=== PATIENT | male | born 1935 | race African-American/Black ===

== ENCOUNTER 2020-01-13 22:10 | Observation (INO) | payer MEDICARE, SELFPAY ==
--- NOTE | ~2020-01-13 | US_ITS ---
EXAMINATION: US carotid duplex BI DATE: 01/14/2020 10:34 INDICATION: Vertigo. TECHNIQUE: Grayscale, color Doppler, and pulsed Doppler images of the cervical carotid arteries were obtained. The degree of vessel stenosis is placed in one of the following categories: normal, <50%, 5 0-69%, >=70% but less than near-occlusion, near-occlusion, or total occlusion. Note that percent sten osis relative to normal distal artery lumen diameter is indirectly measured from velocity measurement s as described by Wisam, et al. Radiology 2003; 229:340-346. Notes: Normal: Peak systolic velocity <125 centimeters/sec and no plaque <50%. Peak systolic velocity <125 ( EDV <40; ICA/CCA PSV ratio <2.0; used these factors only a tandem lesions or low cardiac output or co ntralateral disease) 50-69 %: PSV 125-230 (EDV 40-100; ratio 2-4) >= 70% but less than near occlusion: PSV greater than 230 (EDV > 100; ratio> 4.0) Near Occlusion: PSV that is variable; markedly narrowed lumen Occlusion: Absent flow on color/spectral Doppler and no lumen on roldan scale. COMPARISON: None. FINDINGS: RIGHT: The right common carotid artery (CCA) peak systolic velocity (PSV) is 90 cm/s. The right internal car otid artery (ICA) PSV is 73 cm/s. The right ICA end-diastolic velocity (EDV) is 21 cm/s. The right IC A/CCA PSV ratio is 0.8. The external carotid artery (ECA) PSV is 40 cm/s. There is antegrade flow in the right vertebral artery. LEFT: The left CCA PSV is 113 cm/s. The left ICA PSV is 92 cm/s. The left ICA EDV is 24 cm/s. The left ICA/ CCA PSV ratio is 0.8. The ECA PSV is 82 cm/s. There is antegrade flow in the left vertebral artery. IMPRESSION: 1. Less than 50% stenosis in the right internal carotid artery by sonographic criteria. 2. Less than 50% stenosis in the left internal carotid artery by sonographic criteria. Reviewed, dictated and finalized at location B. IMPRESSION: 1. Less than 50% stenosis in the right internal carotid artery by sonographic mohit moser. 2. Less than 50% stenosis in the left internal carotid artery by sonographic janine nassar.
--- NOTE | ~2020-01-13 | CT_ITS ---
EXAMINATION: CT brain wo con, CT cervical spine wo con EXAM DATE: 01/14/2020 00:19 INDICATION: Fall, syncope, left-sided head injury, left side head and posterior neck pain. TECHNIQUE: Spiral CT of the head was performed without contrast. Axial, coronal and sagittal images were reviewed. Spiral CT of the cervical spine was performed without contrast. Axial images were rev iewed. Coronal and sagittal reformatted images were also reviewed. The dose-length product (DLP) fo r this examination was 605.33 (accession [id number]), 254.83 (accession [id number]) mGy-cm. The exposure was tailored according to patient size, and iterative reconstruction (ASIR) was used as additional dose reduction technique. There is no prior study for comparison. FINDINGS: HEAD CT: There is no acute intraparenchymal hemorrhage. No evidence of intraparenchymal brain mass l esion. No evidence of acute infarction. There is moderate to severe periventricular and subcortical hypodensity, nonspecific but probably related to small vessel ischemic disease. There is mild promi nence of the sulci and ventricles related to cerebral atrophy. There is intracranial carotid arteri osclerosis. There is no mass effect or midline shift. There is no obstructive hydrocephalus suspect ed. There are no extra-axial collections. There are no acute calvarial fractures. The orbits are u nremarkable. Mild left lateral scalp swelling. The visualized sinuses and mastoid air cells are well aerated. CERVICAL CT: There is acute nondisplaced C6 spinous process fracture best identified on the sagittal sequence, see image #66. The odontoid process is intact. Pre-dens space is normal. Prevertebral sof t tissue is normal. There are no soft tissue abnormalities identified. There is no disc space widen ing or traumatic vertebral body subluxation suspected. There is moderate to severe disc disease from C4 through C7. There is overall moderate cervical arthropathy. A detailed level by level evaluation of spondylosis can be added as addendum if requested. IMPRESSION: 1. Acute nondisplaced C6 spinous process fracture, without any subluxation or disc space widening. 2. Age-related intracranial findings. 3. Cervical spondylosis. Reviewed, dictated and finalized at location A. IMPRESSION: 1. Acute nondisplaced C6 spinous process fracture, without any subluxation or disc space widening. 2. Age-related intracranial findings. 3. Cervical spondylosis.
--- NOTE | ~2020-01-13 | XR_ITS ---
EXAMINATION: XR ribs LT 2V w CXR 2V EXAM DATE: 01/14/2020 00:33 INDICATION: Fall, left lower rib pain. TECHNIQUE: Frontal projection of the upper left ribs, frontal projection of the lower left ribs, obli que projection of the left ribs, frontal and lateral chest x-ray(s) for interpretation. Comparison is made to prior examination from 03/04/2018. FINDINGS: There are no displaced acute left rib fractures identified. There is no soft tissue abnor mality seen. No confluent consolidation, pneumothorax or pleural effusion suspected. IMPRESSION: No displaced left rib fractures. Reviewed, dictated and finalized at location A.
[2020-01-13 22:12] VITALS: BP 207/108; PULSE 78; RESP 18; TEMP 37.1; O2SAT 100
--- NOTE | 2020-01-13 22:19 | ECG_ITS ---
Measurements Intervals [place] Rate: 69 P: 52 LA: 180 QRS: -12 QRSD: 100 T: 32 QT: 386 QTc: 414 Interpretive Statements SINUS RHYTHM VENTRICULAR PREMATURE COMPLEX BASELINE WANDER- III, V1-V2 BORDERLINE ECG Electronically Signed On 01-14-2020 7:00:27 CDT by Dmitry Barbosa D.O.
--- NOTE | 2020-01-13 22:26 | PC.NURSE ---
Diana () phone number [phone].
[2020-01-13 22:30] LABS: Basophils Absolute Auto 0.1 K/mm3 (0.0-0.1); Basophils Percent Auto 0.5 % (0.2-1.2); Eosinophils Absolute Auto 0.2 K/mm3 (0-0.3); Eosinophils Percent Auto 1.2 % (0-4.4); Hematocrit 39.4 % (42.0-52.0); Hemoglobin 12.9 g/dL (14.0-18.0); Immature Granulocyte Absolute 0.03 K/mm3 (0.00-0.031); Immature Granulocyte Percent A 0.2 % (0-0.5); Lymphocytes Absolute Auto 3.17 K/mm3 (0.9-3.2); Lymphocytes Percent Auto 26.2 % (18.3-44.2); Mean Corpuscular HGB Conc 32.7 g/dl (32-36); Mean Corpuscular Hemoglobin 29.8 pg (26-34); Monocytes Absolute Auto 1.1 K/mm3 (0.1-0.6); Monocytes Percent Auto 8.8 % (2.6-8.5); Neutrophils Absolute Auto 7.6 K/mm3 (1.3-6.7); Neutrophils Percent Auto 63.1 % (45.5-73.1); Nucleated Red Blood Cells Perc 0.2 % (0.0-0.2); Platelet Count Result 231 k/mm3 (150-375); Red Blood Count 4.33 M/mm3 (4.6-6.20); Red Cell Distribution Width 15.5 % (11.5-14.5); White Blood Count 12.1 K/mm3 (4.5-10.0)
[2020-01-13 22:43] LABS: Anion Gap 7 mmol/L (8-16); Blood Urea Nitrogen 18 mg/dL (9-20); Calcium 9.1 mg/dL (8.4-10.2); Carbon Dioxide 28 mmol/L (22-30); Chloride 102 mmol/L (98-107); Estimated CRCL calculation 43 ml/min; Estimated Glomerular Filt Rate > 60; Glucose 94 mg/dL (75-110); Potassium 3.9 mmol/L (3.4-5.0); Sodium 137 mmol/L (137-145)
--- NOTE | 2020-01-13 23:35 | ED.FALL ---
HPI - Fall General Chief Complaint: Fall Stated Complaint: Syncopy, HI Time Seen by Provider: 01/13/20 23:32 History of Present Illness HPI Narrative: He lost consciousness today while standing in the bathroom. No prodrome. He reports that he remembers looking up then he suddenly blacked out and fell to the ground. He believes that he struck the left side of his head and neck in the fall. He does have mild pain at this time. No weakness, numbness, confusion. Prior to this he was in his usual state of health. Related Data Home Medications Medication Instructions Recorded Confirmed acetaminophen 500 mg tablet 500 mg PO Q6H PRN 01/21/20 Allergies Allergy/AdvReac Type Severity Reaction Status Date / Time No Known Drug Allergies Allergy Unknown Other Verified 01/21/20 15:07 Review of Systems Review of Systems: All systems reviewed & are unremarkable except as noted in HPI and below Constitutional: Constitutional: Denies fever(s) and Denies weakness Eyes: Eyes: Denies change in vision ENT: Denies dizziness Cardiovascular: Cardiovascular: Denies chest pain Respiratory: Respiratory: Denies dyspnea Gastrointestinal: Gastrointestinal: Denies nausea Musculoskeletal: Musculoskeletal: Denies back pain Neurologic: Denies dizziness, Reports syncope and Denies weakness PMFSH Past Medical History Medical History Bowel obstruction HTN (hypertension) Hyperlipidemia SBO (small bowel obstruction) Surgical History Surgical History History of intestinal surgery Social History Social History Smoking packs per day: 1 Smoking cigarettes per day: 20.0 Years smoked: 70 Smoking pack-years: 70.00 Smoking status: Current every day smoker Tobacco type: cigarettes Second hand tobacco smoke exposure: No Alcohol intake: never Substance use: current Substance use type: marijuana Gender identity (if verbalized by the patient): Male Spiritual care concerns: No Agree to blood products: Yes Exam Const: General: healthy appearing, no acute distress and alert Nutritional Appearance: well nourished Orientation/consciousness: patient oriented x3 HENMT: Head: normal to inspection Eyes: Pupils: Equal, round and reactive pupils present EOM: EOMs intact bilaterally Neck: Neck: normal visual inspection and no lymphadenopathy Chest: Chest palpation & inspection: no tenderness Resp: Effort & Inspection: normal respiratory effort Auscultation: clear to auscultation bilaterally, no rales, no rhonchi and no wheezes Cardio: Jugular venous distension: no JVD Rate: regular rate Rhythm: regular rhythm Heart sounds: no murmurs GI: Inspection: non-distended GI Palp: Yes Soft to palpation and No Tenderness to palpation present (GI) Skin: General skin exam: normal color Neuro: General: patient oriented x3, moves all extremities, no focal motor deficits and CN's II-XI intact bilaterally Cranial nerves: Yes Nystagmus not present Speech: normal speech Extrem: General: no edema Psych: Appearance: well kempt Affect: normal affect Course Vital Signs Vital signs: Vital Signs Temperature 37.1 C 01/13/20 22:12 Pulse Rate 78 01/13/20 22:12 Respiratory Rate 18 01/13/20 22:12 Blood Pressure 207/108 H 01/13/20 22:12 Pulse Oximetry 100 01/13/20 22:12 Temperature 37.3 C 01/15/20 13:06 Pulse Rate 66 01/15/20 16:00 Respiratory Rate 16 01/15/20 13:06 Blood Pressure 165/82 H 01/15/20 16:04 Pulse Oximetry 100 01/15/20 13:06 MDM - Fall MDM Narrative Medical decision making narrative: He has a spinous process fracture in the cervical spine. work-up otherwise unremarkable. Syncope especially in older patient's with no prodromal symptoms could be concerning for more serious causes. I will plan to admit for obse
[2020-01-14] VITALS (15 sets, daily range): BP systolic 154–186; BP diastolic 76–98; PULSE 52–78; RESP 16–20; TEMP 36.6–37.1; O2SAT 99–100; BMI 22.8
[2020-01-14] MEDS: SODIUM CHLORIDE 0.9% IV 500 ML 999 ML IV CONT (01:00)
[2020-01-14] MEDS: MORPHINE SULFATE 2 MG/ML INJ IV PUSH (02:41)
--- NOTE | 2020-01-14 02:50 | ADMGEN ---
This patient, Audie Ruiz, was admitted to 2 Medical Room 244-. Patient/family oriented to hospital policies and general routines including ID bracelet, bed and alarms, visiting hours, pain management, procedures, bathroom and other care routines, personal items, smoking policy, room service/diet, and visiting hours. Valuables list has been completed. Information on how to activate the Rapid Response Team has been discussed. Patient/Family are encouraged to report perceived risks to care and to ask questions if they do not understand what they are told or what they should do.
[2020-01-14] MEDS: LACTATED RINGERS 1,000 ML 100 ML IV CONT (03:21)
--- NOTE | 2020-01-14 04:13 | PM.IMHP ---
H&P: HPI History of Present Illness Date/Time: 01/14/20 04:13 Chief complaint: Syncope, Spinous process fracture Narrative: this is a pleasant 84-year-old male with known history of hypertension and hyperlipidemia who [facility] after suffering a syncopal episode at home. The patient had just finished taking a shower and had dried himself off. He remembers that he was going to get some lotion when suddenly he woke up on the ground. He denies any shortness of breath or chest pain before passing out. He denies any previous episodes of passing out. He believes he hit his neck on his toilet when he fell because when he woke up he had neck pain. The patient denies any focal neurological deficit at this time. He also denies any fevers, chills, shortness of breath, cough, nausea, vomiting, diarrhea, abdominal pain, dysuria, hematuria, lower extremity swelling, or rectal bleeding. The patient leads an active lifestyle and tells me that yesterday during the day he cut his grass without any incident. He denies any recent episodes of dizziness. the patient was found to have a nondisplaced spinous process fracture of his cervical vertebra. Currently he is only complaining of posterior neck discomfort. Review of Systems Review of Systems: All systems reviewed & are unremarkable except as noted in HPI and below PMFSH Past Medical History Medical History Bowel obstruction HTN (hypertension) Hyperlipidemia SBO (small bowel obstruction) Surgical History Surgical History History of intestinal surgery Social History Social History Smoking packs per day: 1 Smoking cigarettes per day: 20.0 Years smoked: 70 Smoking pack-years: 70.00 Smoking status: Current every day smoker Tobacco type: cigarettes Second hand tobacco smoke exposure: No Alcohol intake: never Substance use: current Substance use type: marijuana Gender identity (if verbalized by the patient): Male Sexual Orientation (if Verbalized by the Patient): Straight or Heterosexual Spiritual care concerns: No Agree to blood products: Yes Meds Home Medications and Allergies Home Medications Medication Instructions Recorded Confirmed Type metoprolol succinate 25 mg 25 mg PO DAILY #30 tablet 04/10/19 01/14/20 Rx tablet,extended release 24 hr Allergies Allergy/AdvReac Type Severity Reaction Status Date / Time No Known Drug Allergies Allergy Unknown Other Verified 06/12/19 11:05 Vital Signs Vital Signs - 24 hr 01/13/20 22:12 01/14/20 03:03 01/14/20 03:14 Temperature 37.1 C 37.0 C Pulse Rate 78 59 L 74 Respiratory Rate 18 20 Blood Pressure 207/108 H 186/85 H Pulse Oximetry 100 100 Exam Const: General: cooperative, no acute distress, alert and awake Nutritional Appearance: well nourished Orientation/consciousness: patient oriented x3 HENMT: Head: normal to inspection General nose exam: Normal external nose present Face and sinus: normal facial exam Mouth: Yes Normal oral and palatal mucosa present and Yes oropharynx normal Eyes: Pupils: Equal, round and reactive pupils present EOM: EOMs intact bilaterally Neck: Neck: normal visual inspection, supple, tender and no JVD Thyroid: thyroid normal Lymphatic: lymphadenopathy not noted Resp: Effort & Inspection: normal respiratory effort Auscultation: clear to auscultation bilaterally Cardio: Rate: regular rate Rhythm: regular rhythm Heart sounds: no murmurs GI: Inspection: normal to inspection Auscultation: normal bowel sounds Skin: General skin exam: normal color and no rashes or lesions noted Neuro: General: patient oriented x3 Cranial nerves: Yes CN's II-XII intact bilaterally and Yes Equal, round and reactive pupils present Speech: normal speech Mot
--- NOTE | 2020-01-14 04:20 | ECHO_ITS ---
Patient Info Name: Audie Ruiz Age: 84 years : 1935 Gender: Male Ht: 72 in Wt: 167 lbs BSA: 1.96 m2 HR: 61 bpm BP: 186 / 85 mmHg Technical Quality: Good Exam Date: 01/14/2020 8:45 AM Exam Location: [facility] Pulmonary Patient Status: Outpatient Admit Date: 01/14/2020 Staff Ordering Physician: Dada Pichardo MD Metal Furniture Polisher: Salazar Gee RDCS, RT Attending Provider: Lela Magdaleno PA-C Referring Physician: Marino HUNTER; Exam Type: CA echo doppler color flow Study Info Indications R55 - Syncope and collapse Complete two-dimensional, color flow and Doppler transthoracic echocardiogram is performed. Summary 1. Complete two-dimensional, color flow and Doppler transthoracic echocardiogram is performed. 2. Normal LV size, mild LVH, normal LV systolic function, ejection fraction 60-65%; grade 1 diastolic dysfunction. Mild left atrial enlargement. Normal mitral valve structure, no significant MR. Mild aortic valve sclerosis, no hemodynamically significant stenosis by Doppler. Trivial TR, RVSP 37 mmHg. Dilated IVC. Normal sinus rhythm. Left Ventricle Left ventricular chamber dimension is normal. Left ventricular systolic function is normal, estimated at 60-65%. There is mildly increased left ventricular wall thickness. Left ventricular septal wall motion is normal. The left ventricular diastolic function is grade I diastolic dysfunction. Right Ventricle Right ventricular chamber dimension is normal. Right ventricular systolic function is normal. Left Atria Left atrial chamber dimension is mildly enlarged. Right Atria Right atrial chamber dimension is normal. Aortic Valve There is mild aortic valve sclerosis. There is no aortic valve regurgitation. Pulmonic Valve The pulmonic valve is not well visualized. There is trace pulmonic regurgitation. Mitral Valve The mitral valve has normal leaflets. There is trace mitral valve regurgitation. Tricuspid Valve The tricuspid valve leaflets are normal. There is trace tricuspid valve regurgitation. No pulmonary hypertension, estimated pulmonary arterial systolic pressure is 37 mmHg. Pericardium/Pleural The pericardium appears thickened pericardium. There is no pericardial effusion. Inferior Vena Cava Dilated inferior vena cava with <50% collapse upon inspiration consistent with elevated right atrial pressure, 15 mmHg. Aorta The aortic root size at the sinus of Valsalva is normal. The prox ascending aorta size is normal. Left Ventricular Outflow Tract Name Value Normal LVOT 2D LVOT Diameter 2.0 cm LVOT Doppler LVOT Peak Velocity 113 cm/s LVOT Peak Gradient 5 mmHg LVOT Mean Gradient 3 mmHg LVOT VTI 26 cm LVOT VTI/AV VTI Ratio 1.0 LVOT Stroke Volume 86 ml LVOT CO 5.4 l/min LVOT CI 2.7 l/min/m2 Mitral Valve Nam
[2020-01-14] MEDS: SODIUM CHLORIDE 0.9% IV 1,000 ML 120 ML IV CONT ×2 (05:41→14:17)
[2020-01-14 08:10] LABS: Free T4 Free Thyroxine Reflex 1.15 ng/dL (0.78-2.19)
[2020-01-14 09:00] LABS: Total Triiodothyronine (T3) 1.24 NG/ML (0.97-1.69)
[2020-01-14 09:29] LABS: Basophils Percent Auto 0.4 % (0.2-1.2); Eosinophils Absolute Auto 0.1 K/mm3 (0-0.3); Eosinophils Percent Auto 0.9 % (0-4.4); Hematocrit 38.9 % (42.0-52.0); Hemoglobin 12.7 g/dL (14.0-18.0); Immature Granulocyte Absolute 0.03 K/mm3 (0.00-0.031); Immature Granulocyte Percent A 0.3 % (0-0.5); Lymphocytes Absolute Auto 1.78 K/mm3 (0.9-3.2); Lymphocytes Percent Auto 17.7 % (18.3-44.2); Mean Corpuscular HGB Conc 32.6 g/dl (32-36); Mean Corpuscular Hemoglobin 29.9 pg (26-34); Mean Corpuscular Volume 91.5 fl (80-100); Mean Platelet Volume 10.8 fl (7.4-10.4); Monocytes Absolute Auto 0.9 K/mm3 (0.1-0.6); Monocytes Percent Auto 8.7 % (2.6-8.5); Neutrophils Absolute Auto 7.3 K/mm3 (1.3-6.7); Platelet Count Result 208 k/mm3 (150-375); Red Blood Count 4.25 M/mm3 (4.6-6.20); Red Cell Distribution Width 15.5 % (11.5-14.5); White Blood Count 10.1 K/mm3 (4.5-10.0)
[2020-01-14 09:42] LABS: Anion Gap 4 mmol/L (8-16); Blood Urea Nitrogen 14 mg/dL (9-20); Calcium 8.9 mg/dL (8.4-10.2); Carbon Dioxide 28 mmol/L (22-30); Chloride 106 mmol/L (98-107); Estimated CRCL calculation 54 ml/min; Estimated Glomerular Filt Rate > 60; Glucose 136 mg/dL (75-110); Potassium 3.9 mmol/L (3.4-5.0); Sodium 138 mmol/L (137-145)
[2020-01-14] MEDS: METOPROLOL SUCCINATE EXT REL 25 MG TABCR PO (10:28)
--- NOTE | 2020-01-14 18:22 | PM.IMPN ---
Progress Note: A&P Assessment and Plan (1) Syncope and collapse: Code(s): R55 - Syncope and collapse Status: Acute Assessment and Plan: Occurred shortly after showering. Most likely etiology is vasovagal syncope secondary to blood vessel dilation from heat from shower. Additionally, patient may have been volume depleted. He had been outside in the sun mowing his grass earlier that day. EKG is unremarkable with occasional PVCs. Head CT negative. Echo shows normal EF and no evidence of stenosis. carotid Dopplers show <50% stenosis bilaterally. Patient is not orthostatic. TSH is mildly elevated at 5.1 with normal T3 and T4. continue to monitor on telemetry discontinue IV fluid hydration, patient is adequately hydrated monitor orthostatics each shift PT/OT; appreciate recommendations (2) Spinous process fracture: Status: Acute Assessment and Plan: Cervical spine CT shows acute nondisplaced C6 spinous process fracture without any subluxation or disc space widening. Patient complains of mild posterior neck pain, especially with rotation that is relieved with analgesics. I discussed case with orthopedics who are unable to consult as they do not handle cervical matters. Therefore, I will discuss with patient's PCP to determine their level of comfort with follow-up. Will consider call to neurosurgeon Dr. Rucker based on PCP discussion. Continue analgesics as needed (3) HTN (hypertension): Qualifiers: Hypertension type: essential hypertension Qualified Code(s): I10 - Essential (primary) hypertension Code(s): I10 - Essential (primary) hypertension Status: Chronic Assessment and Plan: Blood pressure reviewed today and is elevated in the low 150-170 systolic. BP may be worsened by pain. Continue metoprolol Monitor blood pressure daily (4) Hyperlipidemia: Qualifiers: Hyperlipidemia type: unspecified Qualified Code(s): E78.5 - Hyperlipidemia, unspecified Code(s): E78.5 - Hyperlipidemia, unspecified Status: Chronic Assessment and Plan: He is not on any antihyperlipidemic agents. Will benefit from outpatient PCP follow-up lipid panel screening. Subjective Date/time seen: 01/14/20 18:22 Interval history: Date of service: 01/14/2020 Audie Ruiz is an 84-year-old male with a history of hypertension hyperlipidemia who is seen in follow-up for his syncopal episode and C6 cervical spinous process fracture which occurred secondary to syncope with fall. Patient reports that he is feeling well today overall. He has some mild posterior neck discomfort especially with rotation. He denies dizziness or lightheadedness. He denies weakness, fatigue, or difficulty ambulating. He has no history of syncope or seizure. He was able to ambulate with therapy today and will do well. He did feel slightly dizzy upon standing afterwards when evaluating orthostatic vital signs. He reports good appetite. He denies headache, nausea, vomiting, fever, chills, abdominal pain, shortness of breath, cough, or chest pain. He denies visual changes, speech changes, loss of coordination or balance. Review of Systems Review of Systems: Narrative: A 12 point review of systems was reviewed with pertinent positives and negatives as per HPI. Exam Narrative: Exam Narrative: Mr. Ruiz Is a well-nourished, well-appearing 84-year-old male who is lying semi-recumbent in bed. He appears comfortable and is in no acute respiratory distress. HR 59, BP 96/85, RR 20, T 98.6?, 100% on room air Neuro: awake, alert and oriented x4, speech clear, no focal neuro deficits noted, strength 5/5 throughout HEENMT: normocephalic, atraumatic, EOMI, sclerae anicteric, moist oral mucosa, tongue midline, nares patent Neck: supple, no lymphadenopathy, full ROM, nontender to palpation over spinous processes Respiratory: clear to auscultation bilaterally, nonla
[2020-01-15] VITALS (13 sets, daily range): BP systolic 159–182; BP diastolic 67–89; PULSE 56–66; RESP 16–18; TEMP 37.2–37.3; O2SAT 99–100
[2020-01-15 05:34] LABS: Basophils Absolute Auto 0.1 K/mm3 (0.0-0.1); Basophils Percent Auto 0.6 % (0.2-1.2); Eosinophils Absolute Auto 0.2 K/mm3 (0-0.3); Eosinophils Percent Auto 1.7 % (0-4.4); Hematocrit 37.2 % (42.0-52.0); Hemoglobin 12.2 g/dL (14.0-18.0); Immature Granulocyte Absolute 0.01 K/mm3 (0.00-0.031); Immature Granulocyte Percent A 0.1 % (0-0.5); Mean Corpuscular HGB Conc 32.8 g/dl (32-36); Mean Corpuscular Hemoglobin 29.6 pg (26-34); Mean Corpuscular Volume 90.3 fl (80-100); Mean Platelet Volume 11.3 fl (7.4-10.4); Monocytes Absolute Auto 0.9 K/mm3 (0.1-0.6); Monocytes Percent Auto 10.9 % (2.6-8.5); Neutrophils Percent Auto 57.7 % (45.5-73.1); Platelet Count Result 207 k/mm3 (150-375); Red Blood Count 4.12 M/mm3 (4.6-6.20); Red Cell Distribution Width 15.2 % (11.5-14.5); White Blood Count 8.6 K/mm3 (4.5-10.0)
[2020-01-15 05:49] LABS: Anion Gap 5 mmol/L (8-16); Blood Urea Nitrogen 14 mg/dL (9-20); Calcium 8.9 mg/dL (8.4-10.2); Carbon Dioxide 26 mmol/L (22-30); Chloride 105 mmol/L (98-107); Estimated CRCL calculation 54 ml/min; Estimated Glomerular Filt Rate > 60; Glucose 91 mg/dL (75-110); Potassium 3.8 mmol/L (3.4-5.0); Sodium 136 mmol/L (137-145)
[2020-01-15] MEDS: METOPROLOL SUCCINATE EXT REL 25 MG TABCR PO (08:44)
--- NOTE | 2020-01-15 12:46 | PM.DS ---
DS: Admitting Diagnosis Admitting Diagnosis Admitting Diagnosis: Syncope, Spinous process fracture DS: Discharge Diagnosis Discharge Diagnosis (1) Syncope and collapse: Code(s): R55 - Syncope and collapse Status: Acute Assessment and Plan: Occurred shortly after showering. Most likely etiology is vasovagal syncope secondary to blood vessel dilation from heat from shower. Additionally, patient was likely dehydrated as he had been outside in the sun mowing his grass earlier that day. EKG was unremarkable with occasional PVCs. Head CT negative. Echo showed normal EF and no evidence of stenosis. Carotid dopplers showed <50% stenosis bilaterally. Patient was not orthostatic. TSH mildly elevated at 5.1 with normal T3 and T4. Telemetry reviewed which showed sinus bradycardia 55-60 with occasional PVCs. He was rehydrated with IV fluids. He was evaluated by PT and OT and did not have any ongoing therapy needs. (2) Spinous process fracture: Status: Acute Assessment and Plan: Cervical spine CT showed acute nondisplaced C6 spinous process fracture without any subluxation or disc space widening. He complained of mild posterior neck pain which he rated as 4/10 at worst. Pain slightly worsened with rotation but was otherwise asymtpomatic. No numbness, tingling, loss of coordination/balance, loss of bowel or bladder control, headache. Pain was relieved with analgesics. I discussed case with orthopedics who were unable to consult as they do not handle cervical matters. Therefore, I discussed with patients PCP on 01/14 who felt comfortable with monitoring patient in follow up as an outpatient. He will need to be seen in 1-2 weeks, which he understands and agrees to. We discussed worrisome symptoms for which he should be evaluated in the ED sooner. He may continue acetaminophen at home. (3) HTN (hypertension): Qualifiers: Hypertension type: essential hypertension Qualified Code(s): I10 - Essential (primary) hypertension Code(s): I10 - Essential (primary) hypertension Status: Chronic Assessment and Plan: Blood pressure was not at goal and generally in the 160-170s systolic with some readings 180s. May have been exacerbated by pain. Amlodipine 5 mg daily was added. Patient had previously been on this medication and was transitioned to metoprolol in March 2019. Will proceed with amlodipine and metoprolol succinate for improved control. He has been instructed to monitor BP readings at home and bring for PCP review. (4) Hyperlipidemia: Qualifiers: Hyperlipidemia type: unspecified Qualified Code(s): E78.5 - Hyperlipidemia, unspecified Code(s): E78.5 - Hyperlipidemia, unspecified Status: Chronic Assessment and Plan: He is not on any antihyperlipidemic agents. Will benefit from outpatient PCP follow-up lipid panel screening. DS: Summary Hospital Course Reason for hospitalization: Fall, Syncope Hospital Course: Date of admission: 01/14/2020 Date of discharge: 01/15/2020 Audie Ruiz is an 84-year-old male with a history of hypertension, hyperlipidemia, and small-bowel obstruction who presented to the emergency department on 01/14/2020 after experiencing a syncopal episode in his home. He had just gotten out of the shower, was standing up in the bathroom and then recalls being on the floor. He believes he lost consciousness for a split second. He hit his neck on the toilet seat when he fell. He reports he has not had any episodes such as this before. At presentation, BP was elevated at 186/85, HR 59, additional VSS, afebrile, WBC 12.1, electrolytes stable, CXR with ribs showed no displaced fractures, cervical spine CT showing acute nondisplaced C6 spinous process fracture and cervical spondylosis, and head CT with no acute intracranial findings. He was admitted to the hospitalist service for further evaluation and management. Please see above for further
[2020-01-15] MEDS: amLODIPine BESYLATE 5 MG TABLET PO (14:29)
[2020-01-15] MEDS: hydrALAZINE HCL 20 MG/ML VIAL 10 MG IV PUSH (15:40)
== END 2020-01-15 16:15 | disposition home or self-care (01) ==
LOC: ANHED 23:42 → ANH2MED 01-14 02:30
PROVIDERS: Physician Assistant; Admitting Provider Family Medicine; Emergency Provider Emergency Medicine; Visit Provider Internal Medicine
DX: R55 Syncope and collapse (principal); S12.591A Other nondisplaced fracture of sixth cervical vertebra, initial encounter for closed fracture; W18.39XA Other fall on same level, initial encounter; M47.812 Spondylosis without myelopathy or radiculopathy, cervical region; I65.23 Occlusion and stenosis of bilateral carotid arteries; I49.3 Ventricular premature depolarization; I10 Essential (primary) hypertension; E03.9 Hypothyroidism, unspecified; E78.5 Hyperlipidemia, unspecified
CPT/HCPCS: 36415; 70450; 71046; 71100; 72125; 80048; 84439; 84443; 84480; 85025; 93005; 93306; 93880; 96361; 96374; 96375; 97161; 97165; 99285; A9270; G0378; J0360; J2270; J7030; J7040; J7120; L0140

== ENCOUNTER 2021-05-15 21:07 | Inpatient (IN) | payer MEDICARE, SELFPAY ==
--- NOTE | ~2021-05-15 | XR_ITS ---
EXAMINATION: XR abdomen/kub 1V EXAM DATE: 05/19/2021 08:28 INDICATION: Small bowel obstruction. TECHNIQUE: Frontal projection(s) of the abdomen for interpretation. Comparison is made to prior exami nation from 05/18/2021, 05/17, 05/16. Correlation made to upper GI small bowel water-soluble exam admini stered on 05/16. FINDINGS: Nasogastric tube was placed sometime after the KUB examinations taken on 05/17 which had pe rsistent contrast in the small bowel from small bowel series performed the 05/16. Film from 05/18 demonstrated a nasogastric tube in position, improvement in small bowel dilation, and finally contrast having reached the colon 2 days after ingestion of contrast. This examination today demonstrates feeding tube in position, contrast within moderately distended co kayden, multiple loops of moderately distended air-filled small bowel, similar appearance to yesterday's exam. IMPRESSION: 1. Small bowel transit time between sometime between 24-48 hours hours. Significantly delayed. 2. Moderately distended small bowel unchanged compared to yesterday. 3. Nasogastric tube in position. Reviewed, dictated and finalized at location B. ITY ACCOUNTS DIRECTOR IMPRESSION: 1. Small bowel transit time between sometime between 24-48 hours hours. Signif icantly delayed. 2. Moderately distended small bowel unchanged compared to yesterday. 3. Nasogastric tube in position.
--- NOTE | ~2021-05-15 | XR_ITS ---
EXAMINATION: XR UGI water soluble w sbs EXAM DATE: 05/16/2021 14:55 INDICATION: Evaluate small bowel obstruction. TECHNIQUE: [place]er radiograph was acquired. Water-soluble Omnipaque solution upper GI examination and s mall bowel series was completed by radiologist Manuel Montoya M.D. fluoroscopic images for the upper GI exam was performed by radiologist Dr. Weiss. Pulsed dose reduction fluoroscopy was used with fluorosc opic time of 0.7 minutes. The DAP for this procedure was 29.6 Gycm2. A total of 33 images obtained for the exam. Correlation is made to CT scan from earlier same date. FINDINGS: There is no esophageal stricture, diverticulum or mass identified. Gastroesophageal juncti on is normal in appearance. The stomach has a normal appearance without evidence of mass lesion, ulc eration or filling defect. Patient reportedly became nauseated after the upper GI portion was performed and demonstrates some vo miting of ingested contrast. Contrast proceeded into severely dilated jejunum on the 15 minute, progressed on the 30 and 45 minute images. No additional progression of contrast identified between the 45 minute and 4 hour image, con sistent with mid small bowel obstruction. There is moderate amount of stool in the ascending colon. T here is bifurcated left renal pelvis which is opacified with contrast. Mild left hydronephrosis most likely from mass effect, with ureter passing between a dilated fluid-filled loop of small bowel in th e psoas muscle. IMPRESSION: 1. Mid small bowel obstruction. 2. 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 This could be from ureter being positioned betw een dilated small bowel loop and left psoas muscle. Reviewed, dictated and finalized at location G. EAR INSTRUCTOR IMPRESSION: 1. Mid small bowel obstruction. 2. 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 This could be from ureter being positioned between dilated small bowel loop and left psoas muscle.
--- NOTE | ~2021-05-15 | CT_ITS ---
EXAMINATION: CT abdomen pelvis w con DATE: 05/16/2021 00:26 INDICATION: History of small bowel obstruction and vomiting. Central abdomen pain. TECHNIQUE: Computed tomography (CT) of the abdomen and pelvis was performed with 100 cc Omnipaque 350 intravenous contrast. The dose-length product was 280.67 mGy-cm. Automated exposure control and iter ative reconstruction technique were employed. COMPARISON: CT dated 03/27/2019 FINDINGS: There is dependent atelectasis. Small hiatal hernia. Heart size normal. No significant pleu ral or pericardial effusion. No significant vascular abnormality. No lymphadenopathy. There are dilated fluid-filled small bowel l oops throughout the abdomen with transition in the pelvis, consistent with small bowel obstruction. M oderate colonic fecal loading. There are liver cysts. The spleen, pancreas, adrenal glands and right kidney are unremarkable. There are small subcentimeter hypodensity of the left kidney, most likely be nign cysts. No free air or significant free fluid. 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 T here is scoliosis. There is mild lumbar spondylosis. IMPRESSION: 1. Dilated fluid-filled small bowel with transition in the pelvis, consistent with obstruction. No ev idence for perforation. 2: Paget's disease of the left hemipelvis. Reviewed, dictated and finalized at location A. TRICAL MECHANICAL TECHNICIAN IMPRESSION: 1. Dilated fluid-filled small bowel with transition in the pelvis, consistent w ith obstruction. No evidence for perforation. 2: Paget's disease of the left hemipelvis.
--- NOTE | ~2021-05-15 | XR_ITS ---
XR abdomen/kub 1V DATE: 05/18/2021 06:37 INDICATION: Small bowel obstruction TECHNIQUE: Portable supine AP view on 05/18/2021 at 0615 hours COMPARISON: 05/17/2021 KUB 05/16/2021 CT abdomen pelvis FINDINGS: NG tube in gastric fundus. There is diminished small bowel dilatation since 05/17/2021. No apparent pneumoperitoneum. No viscerom egaly is evident. Diastases of left hemipelvis. IMPRESSION: Diminished small bowel distention since 05/17/2019 NG tube in gastric fundus Reviewed, dictated and finalized at Location A. Reviewed, dictated and finalized at location A. IVABLE MANAGER
--- NOTE | ~2021-05-15 | XR_ITS ---
EXAMINATION: XR fl guid NG/feed tube insert DATE: 05/17/2021 10:41 INDICATION: Nasogastric tube insertion TECHNIQUE: Real-time fluoroscopy was utilized for guidance during nasogastric tube placement. 2 fluor oscopic images of the left chest and lower abdomen were recorded. The amount of fluoroscopy time used during this procedure was 1.2. COMPARISON: 03/28/2019 FINDINGS/IMPRESSION: Successful placement of a nasogastric tube with distal tip and proximal side port in the body of the stomach. Reviewed, dictated and finalized at location A. INAL MANAGER
--- NOTE | ~2021-05-15 | XR_ITS ---
XR UGI water soluble w sbs DATE: 05/20/2021 11:38 INDICATION: Small bowel obstruction TECHNIQUE: Single contrast upper gastrointestinal series was performed with 500 cc Omnipaque 350 admi nistered via existing nasogastric tube. 3 minutes fluoroscopy time DAP: 86.031 30 images COMPARISON: 05/16/2021 upper gastrointestinal series FINDINGS: No significant abnormality of the stomach or duodenum. There is considerably diminished dilatation of the small bowel since 05/16/2021. There is mild dilata tion of the jejunum that the lesion is of normal caliber. Contrast material has reached the colon by 2 hours. IMPRESSION: Considerable improvement of small bowel transit, with near resolution of small bowel dila tation and contrast material in colon by 2 hours Reviewed, dictated and finalized at Location A. Reviewed, dictated and finalized at location A. RUPTCY PARALEGAL IMPRESSION: Considerable improvement of small bowel transit, with near resoluti on of small bowel dilatation and contrast material in colon by 2 hours
--- NOTE | ~2021-05-15 | XR_ITS ---
EXAMINATION: XR abdomen/kub 1V EXAM DATE: 05/17/2021 08:04 INDICATION: Small bowel obstruction follow-up. TECHNIQUE: Frontal projection(s) of the abdomen for interpretation. Comparison is made to prior exami nation from small bowel x-ray exam from yesterday. FINDINGS: Appearance this x-ray is essentially unchanged compared to the image obtained 4 hours post ingestion of oral water soluble contrast (obtained yesterday at 230 p.m.). Multiple loops of severely dilated small bowel. There is moderate amount of colonic stool, but no def inite contrast identified within the colon. Small amount of contrast in the bladder. Again there is p robable left-sided hydronephrosis, which based on CT is probably from small bowel compressing the lef t ureter against its respective cells psoas muscle. No organomegaly. There is left DC pelvis Paget's disease. No levoscoliosis. IMPRESSION: Small bowel obstruction, image essentially unchanged from yesterday's small bowel exam. Reviewed, dictated and finalized at location G. ER ELASTIC BAND IMPRESSION: Small bowel obstruction, image essentially unchanged from yesterda y's small bowel exam.
[2021-05-15 21:49] VITALS: BP 145/78; PULSE 85; RESP 14; TEMP 36.6; O2SAT 100
[2021-05-15] MEDS: SODIUM CHLORIDE 0.9% IV 1,000 ML 999 ML IV CONT (23:36)
[2021-05-15] MEDS: ONDANSETRON INJ 4 MG/2 ML VIAL IV PUSH (23:37)
[2021-05-15] MEDS: HYDROmorphone HCL INJ (*CRX) 1 MG/ML SYR IV PUSH (23:37)
[2021-05-15 23:41] VITALS: BP 142/90; PULSE 88; RESP 20; O2SAT 100
[2021-05-15 23:49] LABS: Basophils Absolute Auto 0.1 K/mm3 (0.0-0.1); Basophils Percent Auto 0.6 % (0.2-1.2); Eosinophils Percent Auto 0.1 % (0-4.4); Hematocrit 40.6 % (42.0-52.0); Hemoglobin 13.3 g/dL (14.0-18.0); Immature Granulocyte Absolute 0.05 K/mm3 (0.00-0.031); Immature Granulocyte Percent A 0.3 % (0-0.5); Lymphocytes Absolute Auto 1.72 K/mm3 (0.9-3.2); Mean Corpuscular HGB Conc 32.8 g/dl (32-36); Mean Corpuscular Hemoglobin 30.3 pg (26-34); Mean Corpuscular Volume 92.5 fl (80-100); Mean Platelet Volume 9.7 fl (7.4-10.4); Monocytes Absolute Auto 1.2 K/mm3 (0.1-0.6); Monocytes Percent Auto 7.5 % (2.6-8.5); Neutrophils Absolute Auto 12.6 K/mm3 (1.3-6.7); Neutrophils Percent Auto 80.5 % (45.5-73.1); Platelet Count Result 283 k/mm3 (150-375); Red Blood Count 4.39 M/mm3 (4.6-6.20); Red Cell Distribution Width 15.4 % (11.5-14.5); White Blood Count 15.7 K/mm3 (4.5-10.0)
[2021-05-15 23:59] LABS: Alanine Aminotransferase 16 U/L (4-50); Albumin Level 4.8 g/dL (3.5-5.1); Alkaline Phosphatase 92 U/L (38-126); Anion Gap 11 mmol/L (8-16); Aspartate Amino Transferase 32 U/L (17-59); Bilirubin,Total 0.8 mg/dL (0.2-1.3); Blood Urea Nitrogen 21 mg/dL (9-20); Calcium 9.7 mg/dL (8.4-10.2); Carbon Dioxide 29 mmol/L (22-30); Chloride 100 mmol/L (98-107); Estimated CRCL calculation 46 ml/min; Estimated Glomerular Filt Rate > 60; Glucose 145 mg/dL (65-110); Lipase 154 U/L (23-300); Potassium 3.6 mmol/L (3.4-5.0); Sodium 140 mmol/L (137-145)
[2021-05-16] LABS: Lactic Acid Reflex 1.9 mmol/L (0.7-2.1)
--- NOTE | 2021-05-16 00:13 | ED.ABDPAIN ---
HPI - Abdominal Pain General Chief Complaint: Abdominal Pain Stated Complaint: abd pain Time Seen by Provider: 05/15/21 23:20 History of Present Illness HPI narrative: Patient 86-year-old gentleman who presents the emergency department with chief complaint of abdominal pain. Patient reports that he has history of bowel obstructions before in the past and had surgical repair with our facility and also at [facility]. Patient reports that this evening he started having severe pain in his abdomen has had nausea. The patient states he has had some bowel movements. Patient states that his abdomen hurts diffusely reports its not improved by anything. Related Data Home Medications Medication Instructions Recorded Confirmed acetaminophen 500 mg tablet 500 mg PO Q6H PRN 01/21/20 01/27/20 Allergies Allergy/AdvReac Type Severity Reaction Status Date / Time No Known Drug Allergies Allergy Unknown Other Verified 05/15/21 23:42 Review of Systems Review of Systems: A 10 system review of systems was completed on the patient and is negative except for what is stated in the HPI. Nursing and ancillary documentation was reviewed. [facility] Past Medical History Medical History (Updated 05/16/21 @ 02:43 by Lauri Mcrae MD) Bowel obstruction HTN (hypertension) Hyperlipidemia SBO (small bowel obstruction) Surgical History Surgical History (Updated 05/16/21 @ 02:32 by Eleanor Chauhan DO) History of exploratory laparotomy History of intestinal surgery Social History Social History Smoking packs per day: 1 Smoking cigarettes per day: 20.0 Years smoked: 70 Smoking pack-years: 70.00 Smoking status: Current every day smoker Tobacco type: cigarettes Second hand tobacco smoke exposure: No Alcohol intake: never Substance use: current Substance use type: marijuana Gender identity (if verbalized by the patient): Male Sexual Orientation (if Verbalized by the Patient): Straight or Heterosexual Spiritual care concerns: No Agree to blood products: Yes Exam Narrative: GENERAL: Well-appearing, well-nourished, and in no acute distress. HEAD: Normocephalic, atraumatic. EYES: PERRLA and EOMI. ENT: Nares clear, no rhinorrhea or epistaxis. Mucous membranes moist. NECK: Supple. CHEST: Clear to auscultation. No respiratory distress. HEART: Regular rate and rhythm. No murmur heard. Normal peripheral pulses. ABDOMEN: Soft, diffusely tender to palpation, nondistended, normal active bowel sounds. EXTREMITIES: Normal range of motion. No edema. SKIN: Warm, dry, no rash. NEURO: No focal deficits. Alert and oriented x3. PSYCH: Normal mood and affect. Course Course Emergency Course: CT scan showed evidence of a bowel obstruction. An NG tube was ordered the patient refused the tube being placed when the nurse would attempt to place the ET tube Vital Signs Vital signs: Vital Signs Temperature 36.6 C 05/15/21 21:49 Pulse Rate 85 05/15/21 21:49 Respiratory Rate 14 05/15/21 21:49 Blood Pressure 145/78 H 05/15/21 21:49 Pulse Oximetry 100 05/15/21 21:49 Temperature 36.6 C 05/15/21 21:49 Pulse Rate 105 H 05/16/21 04:57 Respiratory Rate 16 05/16/21 04:57 Blood Pressure 166/108 H 05/16/21 04:57 Pulse Oximetry 100 05/16/21 04:57 MDM - Abdominal Pain Lab Data Result diagrams: 05/15/21 23:44 05/15/21 23:44 Labs: Lab Results 05/15/21 05/15/21 05/15/21 Range/Units 23:43 23:44 23:44 WBC 15.7 H (4.5-10.0) K/mm3 RBC 4.39 L (4.6-6.20) M/mm3 Hgb 13.3 L (14.0-18.0) g/dL Hct 40.6 L (42.0-52.0) % MCV 92.5 (80-100) fl MCH 30.3 (26-34) pg MCHC 32.8 (32-36) g/dl RDW 15.4 H (11.5-14.5) % Plt Count 283 (150-375) k/mm3 MPV 9.7 (7.4-10.4) fl Immature Gran % (Auto) 0.3 (0-0.5) % Neut % (Auto) 80.5 H (45.5-73.1) % Lymph % (Auto) 1
[2021-05-16] MEDS: HYDROmorphone HCL INJ (*CRX) 1 MG/ML SYR IV PUSH ×3 (02:05→12:18)
[2021-05-16 02:30] LABS: Add Urine Microscopic? YES; Appearance Urine Clear (Clear); Bacteria Urine Trace /hpf; Bilirubin Urine Negative (Negative); Blood Urine Negative (Negative); Color Urine Yellow (Yellow); Glucose Urine UA Negative (Negative); Ketones Urine Trace mg/dL (Negative); Leukocyte Esterase Ur Negative LEU/UL (Negative); Mucus Urine Few /lpf; Nitrate Urine Negative (Negative); Protein Urine Negative (Negative); WBC Urine 0-3 /hpf
--- NOTE | 2021-05-16 02:31 | PM.IMHP ---
H&P: HPI History of Present Illness Date/Time: 05/16/21 02:31 Chief Complaint: Abdominal pain Narrative: 86-year-old male with a past medical history of hypertension and multiple bowel obstructions requiring multiple exploratory laparotomies who presented to the ER as with abdominal pain that started around 8:00 p.m.. 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 He reports that each episode required surgical intervention. 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 He again presented to the hospital March 2017 at which time he was transferred to [facility] for evaluation due to recurrence of volvulus in bowel obstruction. He was then admitted again March 2019 and again had adhesion lysis at this facility. The patient reported that he ate spaghetti around 5:00 p.m.. Approximately 3 hours later he began having generalized abdominal pain was cramping and 8/10 in intensity. Shortly thereafter he began having in bilious emesis. His symptoms were similar to his prior episodes of bowel obstruction. He reports that he had not had a bowel movement in a couple of days. But after he arrived to the ER he has actually had 2 normally formed bowel movements without hematochezia or melena. Palpation of his abdomen and makes pain worse. He has not noticed any relieving factors. The patient was unable to even tolerate nurses approaching him with a NG tube. He agreed to consider letting the nurses on the medical floor attempt an NG tube a little bit later. The patient has had a history of 3 other small bowel obstructions all of which ended in surgical management. He does still continue to smoke about a half a pack of cigarettes per day. He denies any shortness of breath or upper respiratory symptoms. He had a COVID PCR performed in the ER that was negative. Review of Systems Review of Systems: 12 systems were reviewed with pertinent positives and negatives per HPI. Except as documented in the HPI, all other systems were reviewed and are negative. [facility] Past Medical History Medical History (Updated 05/16/21 @ 06:41 by Eleanor Chauhan DO) HTN (hypertension) Hyperlipidemia Paroxysmal A-fib Brief episode of paroxysmal AFib following exploratory laparotomy in 2018 SBO (small bowel obstruction) Surgical History Surgical History History of exploratory laparotomy Most recent abdominal surgery was 03/2019 Family History Family History Other Essential hypertension Social History Social History (Updated 05/16/21 @ 06:34 by Eleanor Chauhan DO) Social History: Patient lives with they have been together for almost 40 years. He has smoked as much as a pack of cigarettes per day but has cut down to 1 pack every 2.5 days. He has no interest in quitting smoking. He denies any alcohol use or illicit substance use. 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 He has 1 child. Code status: Full code Surrogate decision maker: Smoking packs per day: 1 Smoking cigarettes per day: 20.0 Years smoked: 70 Smoking pack-years: 70.00 Smoking status: Current every day smoker Tobacco type: cigarettes Second hand tobacco smoke exposure: No Alcohol intake: never Substance use: never Substance use type: does not use Gender identity (if verbalized by the patient): Male Sexual Orientation (if Verbalized by the Patient): Straight or Heterosexual Spiritual care concerns: No Agree to blood products: Yes Meds Home Medications and Allergies Home Medications Medication Instructions Recorded Confirmed Type acetaminophen 500 mg tablet 500 mg PO Q6H PRN 01/21/20 01/27/20 History tramadol 50 mg tablet 50 mg PO Q12H PRN #30 tablet 01/21/20 01/21/20 Rx amlodipine 10 mg tablet 10 mg PO DAILY #90 tablet
--- NOTE | 2021-05-16 02:33 | PC.NURSE ---
pt refusing NG tube at this time.
[2021-05-16 03:10] VITALS: BP 173/102; PULSE 107; RESP 16; O2SAT 98
[2021-05-16 04:57] VITALS: BP 166/108; PULSE 105; RESP 16; O2SAT 100
[2021-05-16 05:04] LABS: Influenza A QL RT-PCR Negative (Negative); Influenza B QL RT-PCR Negative (Negative)
[2021-05-16] MEDS: SODIUM CHLORIDE 0.9% IV 1,000 ML 125 ML IV CONT ×3 (05:10→15:27)
[2021-05-16 05:17] LABS: SARS-CoV-2 RNA PCR Negative
[2021-05-16 05:45] VITALS: BP 149/92; PULSE 106; RESP 20; TEMP 36.9; O2SAT 98; BMI 22.0
--- NOTE | 2021-05-16 06:20 | ADMGEN ---
This patient, Audie Ruiz, was admitted to 3 [facility] Surg Room 301-01. Patient/family oriented to hospital policies and general routines including ID bracelet, bed and alarms, visiting hours, pain management, procedures, bathroom and other care routines, personal items, smoking policy, room service/diet, and visiting hours. Information on how to activate the Rapid Response Team has been discussed. Patient/Family are encouraged to report perceived risks to care and to ask questions if they do not understand what they are told or what they should do.
[2021-05-16 09:13] LABS: Basophils Absolute Auto 0.1 K/mm3 (0.0-0.1); Basophils Percent Auto 0.4 % (0.2-1.2); Eosinophils Percent Auto 0.1 % (0-4.4); Hematocrit 40.7 % (42.0-52.0); Hemoglobin 13.1 g/dL (14.0-18.0); Immature Granulocyte Absolute 0.05 K/mm3 (0.00-0.031); Immature Granulocyte Percent A 0.3 % (0-0.5); Immature Platelet Fraction Pct 4.7 % (0.9-11.2); Lymphocytes Absolute Auto 1.26 K/mm3 (0.9-3.2); Lymphocytes Percent Auto 7.8 % (18.3-44.2); Mean Corpuscular HGB Conc 32.2 g/dl (32-36); Mean Corpuscular Hemoglobin 29.6 pg (26-34); Mean Corpuscular Volume 92.1 fl (80-100); Mean Platelet Volume 10.3 fl (7.4-10.4); Monocytes Percent Auto 6.4 % (2.6-8.5); Neutrophils Absolute Auto 13.8 K/mm3 (1.3-6.7); Platelet Count Result 301 k/mm3 (150-375); Red Blood Count 4.42 M/mm3 (4.6-6.20); Red Cell Distribution Width 15.6 % (11.5-14.5); White Blood Count 16.2 K/mm3 (4.5-10.0)
[2021-05-16 09:30] LABS: Alanine Aminotransferase 14 U/L (4-50); Albumin Level 4.3 g/dL (3.5-5.1); Alkaline Phosphatase 80 U/L (38-126); Anion Gap 8 mmol/L (8-16); Aspartate Amino Transferase 29 U/L (17-59); Bilirubin,Total 0.9 mg/dL (0.2-1.3); Blood Urea Nitrogen 21 mg/dL (9-20); Calcium 9.1 mg/dL (8.4-10.2); Carbon Dioxide 28 mmol/L (22-30); Chloride 102 mmol/L (98-107); Estimated CRCL calculation 46 ml/min; Estimated Glomerular Filt Rate > 60; Glucose 113 mg/dL (65-110); Magnesium 2.2 mg/dL (1.6-2.3); Potassium 4.3 mmol/L (3.4-5.0); Sodium 138 mmol/L (137-145)
[2021-05-16] MEDS: NICOTINE (*PBKC) 14 MG PATCH 1 PATCH TRANSDERM (09:31)
--- NOTE | 2021-05-16 10:17 | PM.CNGS ---
Assessment and Plan Assessment and plan (1) Small bowel obstruction: Code(s): K56.609 - Unspecified intestinal obstruction, unspecified as to partial versus complete obstruction Status: Acute Assessment and Plan: patient's symptoms have resolved and he has refused a nasogastric tube. Will proceed with water-soluble contrast upper GI small-bowel follow-through. If this does still show an obstruction, patient will need to have nasogastric tube placed. I discussed this with him. Regardless of whether he would have surgery or not, nasogastric tube is an essential treatment for small bowel obstruction. Hopefully it will have resolved and we can go ahead and feed him. Pend results of small bowel series. (2) Tobacco use: Code(s): Z72.0 - Tobacco use Status: Chronic Assessment and Plan: Tobacco and cannabis (3) Memory impairment: Code(s): R41.3 - Other amnesia Status: Chronic Assessment and Plan: primary care physician noticed SLUMS score of less than 18 at his last office visit. History of Present Illness Consult details Consult date: 05/16/21 Reason for consult: abdominal pain Requesting physician: Lauri Mcrae MD Narrative: The patient is an 86-year-old man who came to the emergency room with epigastric abdominal pain and vomiting. He reports that his symptoms started around 7:00 a.m. last night. He has had previous abdominal surgery for obstruction and felt this had occurred again. He came to the emergency room and was evaluated. CT scan of the abdomen and pelvis per tele radiology report suggested small bowel obstruction. Report also was concerning for bronchitis with pneumonitis at the lung bases. I have reviewed the CT scan independently and also the radiologist report from the [facility] radiologist. I agree there is evidence of a small-bowel obstruction and this is the impression of the radiologist. No sign of pneumonia was noted on the [facility] report. The patient was to have a nasogastric tube placed in the emergency room. He refused. One has not been placed. Fortunately, the patient notes that his abdominal pain stopped by the time he got to his room last night. He has not had any abdominal pain or vomiting since being admitted into the hospital. Review of his previous admissions and office visits was performed. Patient is a poor historian and his last office visit with his primary care physician showed evidence of dementia with a SLUMS score of less than 18. Patient does recall that he has had several different operations and was told that bowel obstruction could recur again at any time. 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 He had 2 surgeries for this here at [facility] in 2014. This happened again in 2016 and he transfer to [facility] where he had surgery a 3rd time. The patient returned here in March of 2019. Dr. Anne-Marie esposito performed adhesiolysis and reduction of small-bowel volvulus for a 4th time 11:28 a.m. 2018. The patient is a smoker of tobacco and cannabis. He is admitted now for small bowel obstruction that is obviously multiple E recurrent. Review of Systems Review of Systems: ROS unobtainable: Yes unobtainable due to medical condition ( Dementia) PMFSH Past Medical History Medical History HTN (hypertension) Hyperlipidemia Paroxysmal A-fib Brief episode of paroxysmal AFib following exploratory laparotomy in 2018 SBO (small bowel obstruction) Surgical History Surgical History History of exploratory laparotomy Most recent abdominal surgery was 03/2019 Family History Family History Other Essential hypertension Social History Social History (Reviewed 05/16/21 @ 10:
[2021-05-16] MEDS: ONDANSETRON INJ 4 MG/2 ML VIAL IV PUSH (12:23)
--- NOTE | 2021-05-16 12:45 | PM.IMPN ---
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 No evidence for perforation, Paget's disease of the left hemipelvis. Small bowel follow through is pending General surgery has been consulted NPO patient is refusing NG tube despite the fact that he is still having moderate amount of bilious emesis Dilaudid 1 mg q.4 hours PRN for pain IV fluid hydration 125ml/hr Zofran 4mg IV Q4hr PRN (2) Tobacco use: Code(s): Z72.0 - Tobacco use Status: Chronic Assessment and Plan: chronic tobacco abuse 14 mg nicotine patch not interested in smoking cessation education at this time (3) Essential hypertension: Code(s): I10 - Essential (primary) hypertension Status: Acute Assessment and Plan: Current BP 149/92 history of hypertension but blood pressure is currently relatively stable IV hydralazine as needed for systolic blood pressures greater than 160 add DBP >90 since NPO Home antihypertensive is on hold Trend BP Adjust therapy as indicated (4) Memory impairment: Code(s): R41.3 - Other amnesia Status: Chronic Assessment and Plan: SLUMS score of less than 18 Time Spent With Patient Time with patient: Greater than 35 minutes Subjective Date/time seen: 05/16/21 1245 Interval history: Date/Time: 05/16/21 02:31 Narrative: 86-year-old male with a past medical history of hypertension and multiple bowel obstructions requiring multiple exploratory laparotomies who presented to the ER as with abdominal pain that started around 8:00 p.m.. 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 He reports that each episode required surgical intervention. 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 He again presented to the hospital March 2017 at which time he was transferred to [facility] for evaluation due to recurrence of volvulus in bowel obstruction. He was then admitted again March 2019 and again had adhesion lysis at this facility. The patient reported that he ate spaghetti around 5:00 p.m.. Approximately 3 hours later he began having generalized abdominal pain was cramping and 8/10 in intensity. Shortly thereafter he began having in bilious emesis. His symptoms were similar to his prior episodes of bowel obstruction. He reports that he had not had a bowel movement in a couple of days. But after he arrived to the ER he has actually had 2 normally formed bowel movements without hematochezia or melena. Palpation of his abdomen and makes pain worse. He has not noticed any relieving factors. The patient was unable to even tolerate nurses approaching him with a NG tube. He agreed to consider letting the nurses on the medical floor attempt an NG tube a little bit later. The patient has had a history of 3 other small bowel obstructions all of which ended in surgical management. He does still continue to smoke about a half a pack of cigarettes per day. He denies any shortness of breath or upper respiratory symptoms. He had a COVID PCR performed in the ER that was negative. Date/Time 05/16/21 1245 Patient was lying in bed. Patient stated that he was doing okay still had some mild abdominal pain. Patient's only complaint was he could not find the channel with football on today. Patient denied chest pain, shortness of breath, weakness, fatigue, sweats, any fevers, chills. 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
[2021-05-16 14:00] VITALS: BP 160/88; PULSE 88; RESP 14; TEMP 36.8; O2SAT 98
[2021-05-16] MEDS: KCL 20 MEQ/D5/0.9% SOD CHL 1,000 ML 100 ML IV CONT (16:21)
[2021-05-16] MEDS: LORazepam INJ (*CRX) 2 MG/ML VIAL 0.5 MG IV PUSH (18:02)
[2021-05-16] MEDS: LIDOCAINE HCL 2% GEL UROJET 10 ML PKG MUCOUS MEM (18:05)
--- NOTE | 2021-05-16 18:22 | PC.NURSE ---
1540 attempted with another nurse to place ng tube. pt will push at nurses hands, back head away and not follow directions example like tucking chin to chest, and pt keeps grabbing at tubing. nurse made multiple attempts to place ng tube, pt continues to grab at tubing and rip out of nose. Dr. Navarrete made aware, denisha soriano made aware, with new orders for ativan once with numbing gel. pt was given ativan and gel and nurses waited for medication to take affect at 1800. 1815 nurses then made multiple attempts again to place ng tube, nurse almost had ng tube advanced and pt backed head away and grabbed tubing and took it out of nose. pt stated you are chocking me . pt made aware multiple times that this procedure is uncomfortable and continues to not follow directions and refusing ng tube placement. 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
[2021-05-16] MEDS: MORPHINE SULFATE (*CRX) 4 MG/ML INJ 2 MG IV PUSH ×2 (19:34→23:46)
[2021-05-16 21:15] VITALS: BP 156/85; PULSE 84; RESP 16; TEMP 36.7; O2SAT 96
[2021-05-17] MEDS: KCL 20 MEQ/D5/0.9% SOD CHL 1,000 ML 100 ML IV CONT ×3 (00:45→20:05)
[2021-05-17] MEDS: ONDANSETRON INJ 4 MG/2 ML VIAL IV PUSH ×2 (05:35→18:31)
[2021-05-17] MEDS: MORPHINE SULFATE (*CRX) 4 MG/ML INJ 2 MG IV PUSH ×2 (05:35→18:31)
[2021-05-17 05:44] VITALS: BP 142/76; PULSE 82; RESP 18; TEMP 36.8; O2SAT 95
[2021-05-17 06:03] LABS: Hematocrit 41.4 % (42.0-52.0); Hemoglobin 13.6 g/dL (14.0-18.0); Mean Corpuscular HGB Conc 32.9 g/dl (32-36); Mean Corpuscular Hemoglobin 30.6 pg (26-34); Mean Platelet Volume 10.1 fl (7.4-10.4); Platelet Count Result 276 k/mm3 (150-375); Red Blood Count 4.45 M/mm3 (4.6-6.20); Red Cell Distribution Width 15.6 % (11.5-14.5); White Blood Count 11.1 K/mm3 (4.5-10.0)
--- NOTE | 2021-05-17 07:15 | PM.IMPN ---
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 No evidence for perforation, Paget's disease of the left hemipelvis. Small bowel follow through- mid Sm Bowel obstruction, with bifid left renal pelvis with mild hydronephrosis, which is suspected to be from the small bowel loop positioning. General surgery has been consulted NPO NG tube placed in radiology Bowel rest and IV fluids Repeat KUB in the am Dilaudid 1 mg q.4 hours PRN for pain IV fluid hydration 125ml/hr Zofran 4mg IV Q4hr PRN (2) Tobacco use: Code(s): Z72.0 - Tobacco use Status: Chronic Assessment and Plan: chronic tobacco abuse 14 mg nicotine patch not interested in smoking cessation education at this time (3) Essential hypertension: Code(s): I10 - Essential (primary) hypertension Status: Acute Assessment and Plan: Current BP 142/76 history of hypertension but blood pressure is currently relatively stable IV hydralazine as needed for systolic blood pressures greater than 160 add DBP >90 since NPO Home antihypertensive is on hold Trend BP Adjust therapy as indicated (4) Memory impairment: Code(s): R41.3 - Other amnesia Status: Chronic Assessment and Plan: SLUMS score of less than 18 Time Spent With Patient Time with patient: Greater than 35 minutes Subjective Date/time seen: 05/17/21 0715 Interval history: Date/Time: 05/16/21 02:31 Narrative: 86-year-old male with a past medical history of hypertension and multiple bowel obstructions requiring multiple exploratory laparotomies who presented to the ER as with abdominal pain that started around 8:00 p.m.. 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 He reports that each episode required surgical intervention. 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 He again presented to the hospital March 2017 at which time he was transferred to [facility] for evaluation due to recurrence of volvulus in bowel obstruction. He was then admitted again March 2019 and again had adhesion lysis at this facility. The patient reported that he ate spaghetti around 5:00 p.m.. Approximately 3 hours later he began having generalized abdominal pain was cramping and 8/10 in intensity. Shortly thereafter he began having in bilious emesis. His symptoms were similar to his prior episodes of bowel obstruction. He reports that he had not had a bowel movement in a couple of days. But after he arrived to the ER he has actually had 2 normally formed bowel movements without hematochezia or melena. Palpation of his abdomen and makes pain worse. He has not noticed any relieving factors. The patient was unable to even tolerate nurses approaching him with a NG tube. He agreed to consider letting the nurses on the medical floor attempt an NG tube a little bit later. The patient has had a history of 3 other small bowel obstructions all of which ended in surgical management. He does still continue to smoke about a half a pack of cigarettes per day. He denies any shortness of breath or upper respiratory symptoms. He had a COVID PCR performed in the ER that was negative. Date/Time 05/16/21 1245 Patient was lying in bed. Patient stated that he was doing okay still had some mild abdominal pain. Patient's only complaint was he could not find the channel with football on today. Patient denied chest pain, shortness of breath, weakness, fatigue, sweats, any fevers, chills. Date/Time 05/17/21 0715 Patient
[2021-05-17 07:53] LABS: Anion Gap 12 mmol/L (8-16); Blood Urea Nitrogen 27 mg/dL (9-20); Calcium 9.4 mg/dL (8.4-10.2); Carbon Dioxide 30 mmol/L (22-30); Chloride 101 mmol/L (98-107); Estimated CRCL calculation 40 ml/min; Estimated Glomerular Filt Rate > 60; Glucose 156 mg/dL (65-110); Potassium 3.7 mmol/L (3.4-5.0); Sodium 143 mmol/L (137-145)
[2021-05-17] MEDS: NICOTINE (*PBKC) 14 MG PATCH 1 PATCH TRANSDERM (08:25)
[2021-05-17] MEDS: ENOXAPARIN 40 MG/0.4 ML SYRINGE SUB-Q (08:26)
[2021-05-17] MEDS: LORazepam INJ (*CRX) 2 MG/ML VIAL 0.5 MG IV PUSH (10:00)
--- NOTE | 2021-05-17 10:44 | PM.PNGS ---
Progress Note: A&P Assessment and Plan (1) Small bowel obstruction: Code(s): K56.609 - Unspecified intestinal obstruction, unspecified as to partial versus complete obstruction Status: Acute Assessment and Plan: KUB this morning still suggests a small bowel obstruction with no definitive oral contrast seen in the colon. Patient agreed to NG tube placement in Radiology, which was successful. Continue NG tube decompression, bowel rest, and IV fluids today. Repeat KUB tomorrow morning. (2) Memory impairment: Code(s): R41.3 - Other amnesia Status: Chronic (3) Tobacco use: Code(s): Z72.0 - Tobacco use Status: Chronic Additional Plan I have discussed the plan of care with Dr. Navarrete. Subjective Subjective Date/Time Seen: 05/17/21 10:44 Patient reports: no new complaints, still having pain, no flatus and afebrile Interval history: This is an 86 yo M with a history of multiple abdominal surgeries who presented with a small bowel obstruction. He had refused an NG tube prior to this morning, when he was taken down to Radiology for placement of the NG under fluoroscopy. He arrived back to his room directly before my exam. Chart reviewed. He is seen in the room with the nurse who has just recently hooked his NG tube to suction. She has empted 1 liter of output from his NG tube canister since returning from Radiology. The patient is drowsy, but arousable to name and answers questions appropriately. He denies flatus but states he had a small formed BM this morning. He is still having abdominal pain, which he reports is in the mid upper abdomen. He reports nausea and vomited earlier this morning. No other complaints at this time. Review of Systems Review of Systems: ROS unobtainable: Yes other (limited due to dementia) Gastrointestinal: Gastrointestinal: Reports as per HPI and Reports no additional gastrointestinal complaints Exam Const: General: no acute distress and other (sleeping when entering the room, arousable to name) Resp: Auscultation: clear to auscultation bilaterally Cardio: Rate: regular rate Rhythm: regular rhythm GI: Inspection: non-distended, scar ( long midline scar) and no visible herniation GI Palp: Yes Soft to palpation, Yes Tenderness to palpation present (GI) (RUQ, LUQ), No Guarding due to palpation present (GI) and No Rebound tenderness present Auscultation: Hypoactive bowel sounds present Neuro: General: moves all extremities and no focal motor deficits Extrem: General: normal to inspection Psych: Insight: Limited insight present (Psych) Judgement: Limited judgement present (Psych) Objective Data Vital Signs Vital Signs: Vital Signs - 24 hr 05/16/21 14:00 05/16/21 21:15 05/17/21 05:44 Temperature 98.2 F 98.1 F 98.3 F Pulse Rate 88 84 82 Respiratory Rate 14 16 18 Blood Pressure 160/88 H 156/85 H 142/76 H Pulse Oximetry 98 96 95 Intake/Output Intake/Output: Intake & Output 05/14/21 05/15/21 05/16/21 05/17/21 23:59 23:59 23:59 23:59 Intake Total 3000 1000 Output Total 200 Balance 2800 1000 Meds/Results Medications: Active Medications Generic Name Dose Route Start Last Admin Trade Name Freq PRN Reason Stop Dose Admin Enoxaparin Sodium 40 mg 05/17/21 09:00 05/17/21 08:26 Enoxaparin 40 Mg/0.4 Ml Syringe SUB-Q 40 mg DAILY VANESSA Administration Hydralazine HCl 10 mg 05/16/21 06:38 Hydralazine Hcl 20 Mg/Ml Vial IV PUSH Q4H PRN SBP greater than 160 Potassium Chloride/Dextrose/Sod Cl 1,000 mls @ 100 mls/hr 05/16/21 16:30 05/17/21 00:45 Kcl 20 Meq/D5/0.9% Sod Chl IV CONT 100 mls/hr .Q10H VANESSA Administration Ibuprofen 800 mg in 200 mls @ 400 mls/hr 05/16/21 16:04 Caldolor 800 Mg/200 Ml IVPB Q6H PRN Pain Rated 1-3 Morphine Sulfate 1 mg 05/16/21 16:04 Morphine Sulfate (*Crx) 2 Mg/Ml Inj IV PUSH Q2H PRN Pain Rated 4-6 Morphine Sulfate 2 mg 05/16/21 16:04 05/17/21 05:35 M
[2021-05-17 11:00] VITALS: O2SAT 95
[2021-05-17 13:52] VITALS: BP 157/89; PULSE 88; RESP 18; TEMP 36.9; O2SAT 98
[2021-05-17 22:00] VITALS: BP 110/89; PULSE 86; RESP 18; TEMP 36.4; O2SAT 96
[2021-05-18] MEDS: KCL 20 MEQ/D5/0.9% SOD CHL 1,000 ML 100 ML IV CONT ×2 (05:38→16:47)
[2021-05-18 05:49] VITALS: BP 117/71; PULSE 121; RESP 17; TEMP 36.7; O2SAT 96
[2021-05-18 06:21] LABS: Hematocrit 38.1 % (42.0-52.0); Hemoglobin 12.2 g/dL (14.0-18.0); Mean Corpuscular Hemoglobin 29.8 pg (26-34); Mean Corpuscular Volume 92.9 fl (80-100); Mean Platelet Volume 10.5 fl (7.4-10.4); Platelet Count Result 270 k/mm3 (150-375); Red Cell Distribution Width 15.4 % (11.5-14.5); White Blood Count 8.6 K/mm3 (4.5-10.0)
[2021-05-18 06:54] LABS: Anion Gap 8 mmol/L (8-16); Blood Urea Nitrogen 32 mg/dL (9-20); Calcium 8.7 mg/dL (8.4-10.2); Carbon Dioxide 30 mmol/L (22-30); Chloride 108 mmol/L (98-107); Estimated CRCL calculation 43 ml/min; Estimated Glomerular Filt Rate > 60; Glucose 98 mg/dL (65-110); Sodium 146 mmol/L (137-145)
--- NOTE | 2021-05-18 07:18 | PM.PNGS ---
Progress Note: A&P Assessment and Plan (1) Small bowel obstruction: Code(s): K56.609 - Unspecified intestinal obstruction, unspecified as to partial versus complete obstruction Status: Acute Assessment and Plan: Symptomatically much improved. Plain films improved as well. Continue NG suction IV fluids, p.r.n. analgesics. Follow serial exam, labs, plain films. Hopefully will resolve without a 5th laparotomy. (2) Tobacco use: Code(s): Z72.0 - Tobacco use Status: Chronic (3) Memory impairment: Code(s): R41.3 - Other amnesia Status: Chronic Subjective Subjective Date/Time Seen: 05/18/21 07:18 Patient reports: feels better, pain is less and no bowel movement Interval history: Patient had nasogastric tube placed in Radiology yesterday. Large volume out of nearly 3 L after NG placed. Feels better this morning. No flatus or BM. Review of Systems Review of Systems: All systems reviewed & are unremarkable except as noted in HPI and below Constitutional: Constitutional: Denies chills and Denies fever(s) Cardiovascular: Cardiovascular: Denies chest pain and Denies dyspnea Respiratory: Respiratory: Denies cough and Denies dyspnea Gastrointestinal: Gastrointestinal: Reports as per HPI, Denies abdominal pain, Denies heartburn, Denies nausea and Denies vomiting Exam Const: General: comfortable and no acute distress; No confusion Orientation/consciousness: patient oriented x3 and No confusion GI: Inspection: non-distended, scaphoid, scar and no visible herniation GI Palp: Yes Soft to palpation, No Tenderness to palpation present (GI), No Guarding due to palpation present (GI) and No Rebound tenderness present Auscultation: absent bowel sounds Extrem: General: no calf tenderness and no edema Objective Data Vital Signs Vital Signs: Vital Signs - 24 hr 05/17/21 11:00 05/17/21 13:52 05/17/21 22:00 Temperature 36.9 C 36.4 C Pulse Rate 88 86 Respiratory Rate 18 18 Blood Pressure 157/89 H 110/89 Pulse Oximetry 95 98 96 05/18/21 05:49 Temperature 36.7 C Pulse Rate 121 H Respiratory Rate 17 Blood Pressure 117/71 Pulse Oximetry 96 Intake/Output Intake/Output: Intake & Output 05/15/21 05/16/21 05/17/21 05/18/21 23:59 23:59 23:59 23:59 Intake Total 3000 3030 1000 Output Total 200 3250 225 Balance 2800 -220 775 Meds/Results Medications: Active Medications Generic Name Dose Route Start Last Admin Trade Name Freq PRN Reason Stop Dose Admin Enoxaparin Sodium 40 mg 05/17/21 09:00 05/17/21 08:26 Enoxaparin 40 Mg/0.4 Ml Syringe SUB-Q 40 mg DAILY VANESSA Administration Hydralazine HCl 10 mg 05/16/21 06:38 Hydralazine Hcl 20 Mg/Ml Vial IV PUSH Q4H PRN SBP greater than 160 Potassium Chloride/Dextrose/Sod Cl 1,000 mls @ 100 mls/hr 05/16/21 16:30 05/18/21 05:38 Kcl 20 Meq/D5/0.9% Sod Chl IV CONT 100 mls/hr .Q10H VANESSA Administration Ibuprofen 800 mg in 200 mls @ 400 mls/hr 05/16/21 16:04 Caldolor 800 Mg/200 Ml IVPB Q6H PRN Pain Rated 1-3 Morphine Sulfate 1 mg 05/16/21 16:04 Morphine Sulfate (*Crx) 2 Mg/Ml Inj IV PUSH Q2H PRN Pain Rated 4-6 Morphine Sulfate 2 mg 05/16/21 16:04 05/17/21 18:31 Morphine Sulfate (*Crx) 4 Mg/Ml Inj IV PUSH 2 mg Q2H PRN Administration Pain Rated 7-10 Nicotine 1 patch 05/16/21 09:00 05/17/21 08:25 Nicotine (*Pbkc) 14 Mg Patch TRANSDERM 1 patch QAM VANESSA Administration Ondansetron HCl 4 mg 05/16/21 02:41 05/17/21 18:31 Ondansetron Inj 4 Mg/2 Ml Vial IV PUSH 4 mg Q4H PRN Administration Nausea Radiology Results: ITS Impressions Abdomen/Pelvis CT 05/16/21 09:59 IMPRESSION: 1. Dilated fluid-filled small bowel with transition in the pelvis, consistent with obstruction. No evidence for perforation. 2: Paget's disease of the left hemipelvis. Upper GI Series 05/16/21 15:11 IMPRESSION: 1. Mid small bowel obstruc
--- NOTE | 2021-05-18 07:45 | PM.IMPN ---
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 No evidence for perforation, Paget's disease of the left hemipelvis. Small bowel follow through- mid Sm Bowel obstruction, with bifid left renal pelvis with mild hydronephrosis, which is suspected to be from the small bowel loop positioning. General surgery has been consulted NPO NG tube placed in radiology Bowel rest and IV fluids Repeat KUB Diminished small bowel distention since 05/17/2019, NG tube in gastric fundus Dilaudid 1 mg q.4 hours PRN for pain IV fluid hydration 125ml/hr Zofran 4mg IV Q4hr PRN (2) Tobacco use: Code(s): Z72.0 - Tobacco use Status: Chronic Assessment and Plan: chronic tobacco abuse 14 mg nicotine patch not interested in smoking cessation education at this time (3) Essential hypertension: Code(s): I10 - Essential (primary) hypertension Status: Acute Assessment and Plan: Current BP 117/71 history of hypertension but blood pressure is currently relatively stable IV hydralazine as needed for systolic blood pressures greater than 160 add DBP >90 since NPO Home antihypertensive is on hold Trend BP Adjust therapy as indicated (4) Memory impairment: Code(s): R41.3 - Other amnesia Status: Chronic Assessment and Plan: SLUMS score of less than 18 Time Spent With Patient Time with patient: Greater than 35 minutes Subjective Date/time seen: 05/18/21 07:45 Interval history: Date/Time: 05/16/21 02:31 Narrative: 86-year-old male with a past medical history of hypertension and multiple bowel obstructions requiring multiple exploratory laparotomies who presented to the ER as with abdominal pain that started around 8:00 p.m.. 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 He reports that each episode required surgical intervention. 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 He again presented to the hospital March 2017 at which time he was transferred to [facility] for evaluation due to recurrence of volvulus in bowel obstruction. He was then admitted again March 2019 and again had adhesion lysis at this facility. The patient reported that he ate spaghetti around 5:00 p.m.. Approximately 3 hours later he began having generalized abdominal pain was cramping and 8/10 in intensity. Shortly thereafter he began having in bilious emesis. His symptoms were similar to his prior episodes of bowel obstruction. He reports that he had not had a bowel movement in a couple of days. But after he arrived to the ER he has actually had 2 normally formed bowel movements without hematochezia or melena. Palpation of his abdomen and makes pain worse. He has not noticed any relieving factors. The patient was unable to even tolerate nurses approaching him with a NG tube. He agreed to consider letting the nurses on the medical floor attempt an NG tube a little bit later. The patient has had a history of 3 other small bowel obstructions all of which ended in surgical management. He does still continue to smoke about a half a pack of cigarettes per day. He denies any shortness of breath or upper respiratory symptoms. He had a COVID PCR performed in the ER that was negative. Date/Time 05/16/21 1245 Patient was lying in bed. Patient stated that he was doing okay still had some mild abdominal pain. Patient's only complaint was he could not find the channel with football on today. Patient denied chest pain, shortness of breath, weakness, fatigu
--- NOTE | 2021-05-18 09:43 | PM.DS ---
DS: Admitting Diagnosis Discharge Date 05/18/21 DS: Summary Time Spent with Patient Time attestation: Total time spent providing and/or coordinating discharge services: DS: Data Data Completed and Pending Labs on day of discharge: Labs from last 24 hours 05/18/21 05/18/21 05:39 05:39 WBC 8.6 RBC 4.10 L Hgb 12.2 L Hct 38.1 L MCV 92.9 MCH 29.8 MCHC 32.0 RDW 15.4 H Plt Count 270 MPV 10.5 H Sodium 146 H Potassium 4.0 Chloride 108 H Carbon Dioxide 30 Anion Gap 8 BUN 32 H Creatinine 1.20 Estim Creat Clear Calc 43 Estimated GFR > 60 Glucose 98 Calcium 8.7 Discharge Plan Discharge Consulting providers: Tano Navarrete Discharge Medications: No Action acetaminophen [Tylenol Extra Strength] 500 mg tablet 500 mg PO Q6H PRN (Reason: Pain (Scale Score 4-6)) RF: 0 tramadol 50 mg tablet 50 mg PO Q12H PRN (Reason: pain) Qty: 30 RF: 0 triamcinolone acetonide 0.1 % cream 1 applic topical BID Qty: 30 RF: 0 amlodipine 10 mg tablet 10 mg PO DAILY Qty: 90 RF: 1 Date of admission: 05/16/21 08:20 Primary Care Provider: Donell Fine Admitting Provider: Eleanor Chauhan Attending physician on admission: Eleanor Chauhan Condition: Stable Quality VTE Prophylaxis VTE prophylaxis: mechanical ordered (SCD'S)
[2021-05-18] MEDS: NICOTINE (*PBKC) 14 MG PATCH 1 PATCH TRANSDERM (10:14)
[2021-05-18] MEDS: ENOXAPARIN 40 MG/0.4 ML SYRINGE SUB-Q (10:16)
[2021-05-18 14:00] VITALS: BP 107/77; PULSE 97; RESP 17; TEMP 36.6; O2SAT 100
[2021-05-18 21:36] VITALS: BP 134/84; PULSE 106; RESP 18; TEMP 36.9; O2SAT 100
[2021-05-19] MEDS: KCL 20 MEQ/D5/0.9% SOD CHL 1,000 ML 100 ML IV CONT ×2 (04:27→17:18)
[2021-05-19 05:00] VITALS: BP 129/76; PULSE 60; RESP 18; TEMP 36.4; O2SAT 98
[2021-05-19 06:57] LABS: Hematocrit 35.1 % (42.0-52.0); Mean Corpuscular HGB Conc 31.3 g/dl (32-36); Mean Corpuscular Hemoglobin 29.3 pg (26-34); Mean Corpuscular Volume 93.6 fl (80-100); Mean Platelet Volume 10.5 fl (7.4-10.4); Platelet Count Result 240 k/mm3 (150-375); Red Blood Count 3.75 M/mm3 (4.6-6.20); Red Cell Distribution Width 15.3 % (11.5-14.5); White Blood Count 7.6 K/mm3 (4.5-10.0)
[2021-05-19 07:00] LABS: Anion Gap 6 mmol/L (8-16); Blood Urea Nitrogen 29 mg/dL (9-20); Calcium 8.4 mg/dL (8.4-10.2); Carbon Dioxide 27 mmol/L (22-30); Chloride 111 mmol/L (98-107); Estimated CRCL calculation 46 ml/min; Estimated Glomerular Filt Rate > 60; Glucose 100 mg/dL (65-110); Magnesium 2.3 mg/dL (1.6-2.3); Potassium 3.6 mmol/L (3.4-5.0); Sodium 144 mmol/L (137-145)
--- NOTE | 2021-05-19 07:00 | PM.IMPN ---
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 No evidence for perforation, Paget's disease of the left hemipelvis. 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 Repeat Sm Bowel follow through planned for tomorrow, will determine if surgical intervention is needed General surgery has been consulted thank you Dr. Navarrete NPO NG tube placed in radiology to LIMS Continue Bowel rest and IV fluids KUB (05/19/21) Small bowel transit time between sometime between 24-48 hours hours. Significantly delayed, Moderately distended small bowel unchanged compared to yesterday, Nasogastric tube in position. Dilaudid 1 mg q.4 hours PRN for pain IV fluid hydration 125ml/hr Zofran 4mg IV Q4hr PRN (2) Tobacco use: Code(s): Z72.0 - Tobacco use Status: Chronic Assessment and Plan: chronic tobacco abuse 14 mg nicotine patch not interested in smoking cessation education at this time (3) Essential hypertension: Code(s): I10 - Essential (primary) hypertension Status: Acute Assessment and Plan: Current BP 129/76 history of hypertension but blood pressure is currently relatively stable IV hydralazine as needed for systolic blood pressures greater than 160 add DBP >90 since NPO Home antihypertensive is on hold Trend BP Adjust therapy as indicated (4) Memory impairment: Code(s): R41.3 - Other amnesia Status: Chronic Assessment and Plan: SLUMS score of less than 18 Time Spent With Patient Time with patient: Greater than 35 minutes Subjective Date/time seen: 05/19/21 0700 Interval history: Date/Time: 05/16/21 02:31 Narrative: 86-year-old male with a past medical history of hypertension and multiple bowel obstructions requiring multiple exploratory laparotomies who presented to the ER as with abdominal pain that started around 8:00 p.m.. 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 He reports that each episode required surgical intervention. 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 He again presented to the hospital March 2017 at which time he was transferred to [facility] for evaluation due to recurrence of volvulus in bowel obstruction. He was then admitted again March 2019 and again had adhesion lysis at this facility. The patient reported that he ate spaghetti around 5:00 p.m.. Approximately 3 hours later he began having generalized abdominal pain was cramping and 8/10 in intensity. Shortly thereafter he began having in bilious emesis. His symptoms were similar to his prior episodes of bowel obstruction. He reports that he had not had a bowel movement in a couple of days. But after he arrived to the ER he has actually had 2 normally formed bowel movements without hematochezia or melena. Palpation of his abdomen and makes pain worse. He has not noticed any relieving factors. The patient was unable to even tolerate nurses approaching him with a NG tube. He agreed to consider letting the nurses on the medical floor attempt an NG tube a little bit later. The patient has had a history of 3 other small bowel obstructions all of which ended in surgical management. He does still continue to smoke about a half a pack of cigarettes per day. He denies any shortness of breath or upper respiratory symptoms. He had a COVID PCR performed in the ER that was negative. Ludwig
--- NOTE | 2021-05-19 08:46 | PM.PNGS ---
Progress Note: A&P Assessment and Plan (1) Small bowel obstruction: Code(s): K56.609 - Unspecified intestinal obstruction, unspecified as to partial versus complete obstruction Status: Acute Assessment and Plan: symptoms much improved, exam essentially normal. Still quite a bit of dilatation on plain films. Continue NG suction today and check Gastrografin small-bowel follow-through tomorrow. Hopefully will have resolved. If not, this would be the 5th laparotomy for small bowel obstruction. Subjective Subjective Date/Time Seen: 05/19/21 08:46 Patient reports: no new complaints, feels better, pain is less ( no abdominal pain), flatus and no bowel movement Review of Systems Review of Systems: All systems reviewed & are unremarkable except as noted in HPI and below Constitutional: Constitutional: Denies headache(s) Cardiovascular: Cardiovascular: Denies chest pain and Denies dyspnea Respiratory: Respiratory: Denies cough and Denies dyspnea Gastrointestinal: Gastrointestinal: Reports as per HPI Exam Const: General: comfortable and no acute distress; No confusion Orientation/consciousness: patient oriented x3 and No confusion GI: GI Palp: Yes Soft to palpation, Yes Tenderness to palpation present (GI), No Guarding due to palpation present (GI) and No Rebound tenderness present Auscultation: normal bowel sounds Extrem: General: no calf tenderness and no edema Objective Data Vital Signs Vital Signs: Vital Signs - 24 hr 05/18/21 14:00 05/18/21 21:36 05/19/21 05:00 Temperature 36.6 C 36.9 C 36.4 C Pulse Rate 97 106 H 60 Respiratory Rate 17 18 18 Blood Pressure 107/77 134/84 129/76 Pulse Oximetry 100 100 98 Intake/Output Intake/Output: Intake & Output 05/16/21 05/17/21 05/18/21 05/19/21 23:59 23:59 23:59 23:59 Intake Total 3000 3030 2240 1040 Output Total 200 3250 675 500 Balance 2800 -220 1565 540 Meds/Results Medications: Active Medications Generic Name Dose Route Start Last Admin Trade Name Freq PRN Reason Stop Dose Admin Enoxaparin Sodium 40 mg 05/17/21 09:00 05/18/21 10:16 Enoxaparin 40 Mg/0.4 Ml Syringe SUB-Q 40 mg DAILY VANESSA Administration Hydralazine HCl 10 mg 05/16/21 06:38 Hydralazine Hcl 20 Mg/Ml Vial IV PUSH Q4H PRN SBP greater than 160 Potassium Chloride/Dextrose/Sod Cl 1,000 mls @ 100 mls/hr 05/16/21 16:30 05/19/21 04:27 Kcl 20 Meq/D5/0.9% Sod Chl IV CONT 100 mls/hr .Q10H VANESSA Administration Ibuprofen 800 mg in 200 mls @ 400 mls/hr 05/16/21 16:04 Caldolor 800 Mg/200 Ml IVPB Q6H PRN Pain Rated 1-3 Morphine Sulfate 1 mg 05/16/21 16:04 Morphine Sulfate (*Crx) 2 Mg/Ml Inj IV PUSH Q2H PRN Pain Rated 4-6 Morphine Sulfate 2 mg 05/16/21 16:04 05/17/21 18:31 Morphine Sulfate (*Crx) 4 Mg/Ml Inj IV PUSH 2 mg Q2H PRN Administration Pain Rated 7-10 Nicotine 1 patch 05/16/21 09:00 05/18/21 10:14 Nicotine (*Pbkc) 14 Mg Patch TRANSDERM 1 patch QAM VANESSA Administration Ondansetron HCl 4 mg 05/16/21 02:41 05/17/21 18:31 Ondansetron Inj 4 Mg/2 Ml Vial IV PUSH 4 mg Q4H PRN Administration Nausea Radiology Results: ITS Impressions Abdomen/Pelvis CT 05/16/21 09:59 IMPRESSION: 1. Dilated fluid-filled small bowel with transition in the pelvis, consistent with obstruction. No evidence for perforation. 2: Paget's disease of the left hemipelvis. Upper GI Series 05/16/21 15:11 IMPRESSION: 1. Mid small bowel obstruction. 2. 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 This could be from ureter being positioned between dilated small bowel loop and left psoas muscle. Labs Labs: Laboratory Results - last 24 hr 05/19/21 05/19/21 05:53 05:53 WBC 7.6 RBC 3.75 L Hgb 11.0 L Hct 35.1 L MCV 93.6 MCH 29.3 MCHC 31.3 L RDW 15.3 H Plt Count 240 MPV 10.5 H Sodium 144 Potassium 3.6 Chloride 111 H Carbon Dioxid
[2021-05-19] MEDS: NICOTINE (*PBKC) 14 MG PATCH 1 PATCH TRANSDERM (09:06)
[2021-05-19] MEDS: ENOXAPARIN 40 MG/0.4 ML SYRINGE SUB-Q (09:07)
[2021-05-19 14:00] VITALS: BP 122/76; PULSE 98; RESP 18; TEMP 36.8; O2SAT 100
[2021-05-19 22:00] VITALS: BP 137/81; PULSE 90; RESP 18; TEMP 36.5; O2SAT 100
[2021-05-20 05:54] VITALS: BP 136/85; PULSE 81; RESP 18; TEMP 36.5; O2SAT 100
[2021-05-20 07:29] LABS: Hematocrit 35.1 % (42.0-52.0); Hemoglobin 11.3 g/dL (14.0-18.0); Mean Corpuscular HGB Conc 32.2 g/dl (32-36); Mean Corpuscular Hemoglobin 29.9 pg (26-34); Mean Corpuscular Volume 92.9 fl (80-100); Mean Platelet Volume 10.4 fl (7.4-10.4); Platelet Count Result 249 k/mm3 (150-375); Red Blood Count 3.78 M/mm3 (4.6-6.20); Red Cell Distribution Width 14.8 % (11.5-14.5); White Blood Count 7.6 K/mm3 (4.5-10.0)
[2021-05-20 07:44] LABS: Anion Gap 5 mmol/L (8-16); Blood Urea Nitrogen 21 mg/dL (9-20); Calcium 8.4 mg/dL (8.4-10.2); Carbon Dioxide 27 mmol/L (22-30); Chloride 110 mmol/L (98-107); Estimated CRCL calculation 46 ml/min; Estimated Glomerular Filt Rate > 60; Glucose 97 mg/dL (65-110); Potassium 3.6 mmol/L (3.4-5.0); Sodium 142 mmol/L (137-145)
[2021-05-20] MEDS: KCL 20 MEQ/D5/0.9% SOD CHL 1,000 ML 100 ML IV CONT (07:44)
[2021-05-20] MEDS: NICOTINE (*PBKC) 14 MG PATCH 1 PATCH TRANSDERM (07:52)
[2021-05-20] MEDS: ENOXAPARIN 40 MG/0.4 ML SYRINGE SUB-Q (07:52)
--- NOTE | 2021-05-20 08:14 | PM.PNGS ---
Progress Note: A&P Assessment and Plan (1) Small bowel obstruction: Code(s): K56.609 - Unspecified intestinal obstruction, unspecified as to partial versus complete obstruction Status: Acute Assessment and Plan: No complaints of abdominal pain. Abdominal exam negative. KUB not done as yet. Will send patient for water-soluble contrast upper GI small-bowel follow-through today. If passes with relatively normal transit, plan to DC NG and start oral intake. Subjective Subjective Date/Time Seen: 05/20/21 08:14 Patient reports: no new complaints, pain is less (No abdominal pain) and no bowel movement Review of Systems Review of Systems: All systems reviewed & are unremarkable except as noted in HPI and below (HPI) Cardiovascular: Cardiovascular: Denies chest pain and Denies dyspnea Respiratory: Respiratory: Denies cough and Denies dyspnea Gastrointestinal: Gastrointestinal: Denies abdominal pain, Denies heartburn, Denies diarrhea and Denies nausea Neurologic: Denies confusion and Denies headache(s) Exam Const: General: comfortable and no acute distress; No confusion Orientation/consciousness: patient oriented x3 and No confusion GI: Inspection: non-distended and scar GI Palp: Yes Soft to palpation, No Tenderness to palpation present (GI), No Guarding due to palpation present (GI) and No Rebound tenderness present Auscultation: normal bowel sounds Extrem: General: no calf tenderness and no edema Objective Data Vital Signs Vital Signs: Vital Signs - 24 hr 05/19/21 14:00 05/19/21 22:00 05/20/21 05:54 Temperature 36.8 C 36.5 C 36.5 C Pulse Rate 98 90 81 Respiratory Rate 18 18 18 Blood Pressure 122/76 137/81 136/85 Pulse Oximetry 100 100 100 Intake/Output Intake/Output: Intake & Output 05/17/21 05/18/21 05/19/21 05/20/21 23:59 23:59 23:59 23:59 Intake Total 3030 2240 2040 1250 Output Total 3250 675 550 900 Balance -220 1565 1490 350 Meds/Results Medications: Active Medications Generic Name Dose Route Start Last Admin Trade Name Freq PRN Reason Stop Dose Admin Enoxaparin Sodium 40 mg 05/17/21 09:00 05/20/21 07:52 Enoxaparin 40 Mg/0.4 Ml Syringe SUB-Q 40 mg DAILY VANESSA Administration Hydralazine HCl 10 mg 05/16/21 06:38 Hydralazine Hcl 20 Mg/Ml Vial IV PUSH Q4H PRN SBP greater than 160 Potassium Chloride/Dextrose/Sod Cl 1,000 mls @ 100 mls/hr 05/16/21 16:30 05/20/21 07:44 Kcl 20 Meq/D5/0.9% Sod Chl IV CONT 100 mls/hr .Q10H VANESSA Administration Ibuprofen 800 mg in 200 mls @ 400 mls/hr 05/16/21 16:04 Caldolor 800 Mg/200 Ml IVPB Q6H PRN Pain Rated 1-3 Morphine Sulfate 1 mg 05/16/21 16:04 Morphine Sulfate (*Crx) 2 Mg/Ml Inj IV PUSH Q2H PRN Pain Rated 4-6 Morphine Sulfate 2 mg 05/16/21 16:04 05/17/21 18:31 Morphine Sulfate (*Crx) 4 Mg/Ml Inj IV PUSH 2 mg Q2H PRN Administration Pain Rated 7-10 Nicotine 1 patch 05/16/21 09:00 05/20/21 07:52 Nicotine (*Pbkc) 14 Mg Patch TRANSDERM 1 patch QAM VANESSA Administration Ondansetron HCl 4 mg 05/16/21 02:41 05/17/21 18:31 Ondansetron Inj 4 Mg/2 Ml Vial IV PUSH 4 mg Q4H PRN Administration Nausea Radiology Results: ITS Impressions Abdomen/Pelvis CT 05/16/21 09:59 IMPRESSION: 1. Dilated fluid-filled small bowel with transition in the pelvis, consistent with obstruction. No evidence for perforation. 2: Paget's disease of the left hemipelvis. Upper GI Series 05/16/21 15:11 IMPRESSION: 1. Mid small bowel obstruction. 2. 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 This could be from ureter being positioned between dilated small bowel loop and left psoas muscle. Abdomen X-Ray 05/19/21 08:48 IMPRESSION: 1. Small bowel transit time between sometime between 24-48 hours hours. Significantly delayed. 2. Moderately distended small bowel unchanged compared to yesterday. 3. Nasogastric tube in position.
[2021-05-20 13:53] VITALS: BP 137/93; PULSE 88; RESP 21; TEMP 35.9; O2SAT 100
--- NOTE | 2021-05-20 16:15 | P.PNIM_ITS ---
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 No evidence for perforation, Paget's disease of the left hemipelvis. * Small bowel follow through (05/16/21) mid Sm Bowel obstruction, with bifid left renal pelvis with mild hydronephrosis, which is suspected to be from the small bowel loop positioning. * Repeat Sm Bowel follow through Considerable improvement of small bowel transit, with near resolution of small bowel dilatation and contrast material in colon by 2 hours * General surgery has been consulted thank you Dr. Navarrete * NPO * NG tube placed in radiology to [facility] today * Slowly incorporate a diet, advance per surgeon * KUB (05/19/21) Small bowel transit time between sometime between 24-48 hours hours. Significantly delayed, Moderately distended small bowel unchanged compared to yesterday, Nasogastric tube in position. * Dilaudid 1 mg q.4 hours PRN for pain * IV fluid hydration 125ml/hr * Zofran 4mg IV Q4hr PRN (2) Tobacco use: Code(s): Z72.0 - Tobacco use Status: Chronic Assessment and Plan: * chronic tobacco abuse * 14 mg nicotine patch * not interested in smoking cessation education at this time (3) Essential hypertension: Code(s): I10 - Essential (primary) hypertension Status: Acute Assessment and Plan: * Current BP 137/93 * history of hypertension but blood pressure is currently relatively stable * IV hydralazine as needed for systolic blood pressures greater than 160 add DBP >90 since NPO * Home antihypertensive is on hold * Trend BP * Adjust therapy as indicated (4) Memory impairment: Code(s): R41.3 - Other amnesia Status: Chronic Assessment and Plan: * SLUMS score of less than 18 Subjective Date/time seen: 05/20/21 1615 Interval history: Date/Time: 05/16/21 02:31 Narrative: 86-year-old male with a past medical history of hypertension and multiple bowel obstructions requiring multiple exploratory laparotomies who p resented to the ER as with abdominal pain that started around 8:00 p.m.. 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 He reports that each episode required surgical intervention. 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 He again presented to the hospital March 2017 at which time he was transferred to [facility] for evaluation due to recurrence of volvulus in bowel obstruction. He was then admitted again March 2019 and again had adhesion lysis at this facility. The patient reported that he ate spaghetti around 5:00 p.m.. Approximately 3 hours later he began having generalized abdominal pain was cramping and 8/10 in intensity. Shortly thereafter he began having in bilious emesis. His symptoms were similar to his prior episodes of bowel obstruction. He reports that he had not had a bowel movement in a couple of days. But after he arrived to the ER he has actually had 2 normally formed bowel movements without hematochezia or melena. Palpation of his abdomen and makes pain worse. He has not noticed any relieving factors. The patient was unable to even tolerate nurses approaching him with
--- NOTE | 2021-05-20 16:15 | PM.IMPN ---
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 No evidence for perforation, Paget's disease of the left hemipelvis. 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 Repeat Sm Bowel follow through Considerable improvement of small bowel transit, with near resolution of small bowel dilatation and contrast material in colon by 2 hours General surgery has been consulted thank you Dr. Navarrete [facility] Slowly incorporate a diet, advance per surgeon KUB (05/19/21) Small bowel transit time between sometime between 24-48 hours hours. Significantly delayed, Moderately distended small bowel unchanged compared to yesterday, Nasogastric tube in position. Dilaudid 1 mg q.4 hours PRN for pain IV fluid hydration 125ml/hr Zofran 4mg IV Q4hr PRN (2) Tobacco use: Code(s): Z72.0 - Tobacco use Status: Chronic Assessment and Plan: chronic tobacco abuse 14 mg nicotine patch not interested in smoking cessation education at this time (3) Essential hypertension: Code(s): I10 - Essential (primary) hypertension Status: Acute Assessment and Plan: Current BP 137/93 history of hypertension but blood pressure is currently relatively stable IV hydralazine as needed for systolic blood pressures greater than 160 add DBP >90 since NPO Home antihypertensive is on hold Trend BP Adjust therapy as indicated (4) Memory impairment: Code(s): R41.3 - Other amnesia Status: Chronic Assessment and Plan: SLUMS score of less than 18 Subjective Date/time seen: 05/20/21 1615 Interval history: Date/Time: 05/16/21 02:31 Narrative: 86-year-old male with a past medical history of hypertension and multiple bowel obstructions requiring multiple exploratory laparotomies who presented to the ER as with abdominal pain that started around 8:00 p.m.. 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 He reports that each episode required surgical intervention. 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 He again presented to the hospital March 2017 at which time he was transferred to [facility] for evaluation due to recurrence of volvulus in bowel obstruction. He was then admitted again March 2019 and again had adhesion lysis at this facility. The patient reported that he ate spaghetti around 5:00 p.m.. Approximately 3 hours later he began having generalized abdominal pain was cramping and 8/10 in intensity. Shortly thereafter he began having in bilious emesis. His symptoms were similar to his prior episodes of bowel obstruction. He reports that he had not had a bowel movement in a couple of days. But after he arrived to the ER he has actually had 2 normally formed bowel movements without hematochezia or melena. Palpation of his abdomen and makes pain worse. He has not noticed any relieving factors. The patient was unable to even tolerate nurses approaching him with a NG tube. He agreed to consider letting the nurses on the medical floor attempt an NG tube a little bit later. The patient has had a history of 3 other small bowel obstructions all of which ended in surgical management. He does still continue to smoke about a half a pack of cigarettes per day. He denies any shortness of breath or upper respiratory symptoms. He had a COVID PCR performed in the ER th
[2021-05-20 22:00] VITALS: BP 149/86; PULSE 76; RESP 18; TEMP 36.7; O2SAT 100
[2021-05-21 05:06] VITALS: BP 148/80; PULSE 82; RESP 18; TEMP 37.2; O2SAT 97
[2021-05-21 06:27] LABS: Hematocrit 33.4 % (42.0-52.0); Hemoglobin 10.9 g/dL (14.0-18.0); Mean Corpuscular HGB Conc 32.6 g/dl (32-36); Mean Corpuscular Hemoglobin 29.7 pg (26-34); Mean Platelet Volume 10.1 fl (7.4-10.4); Platelet Count Result 225 k/mm3 (150-375); Red Blood Count 3.67 M/mm3 (4.6-6.20); Red Cell Distribution Width 14.6 % (11.5-14.5); White Blood Count 7.5 K/mm3 (4.5-10.0)
[2021-05-21 06:37] LABS: Anion Gap 6 mmol/L (8-16); Blood Urea Nitrogen 26 mg/dL (9-20); Calcium 8.2 mg/dL (8.4-10.2); Carbon Dioxide 23 mmol/L (22-30); Chloride 111 mmol/L (98-107); Estimated CRCL calculation 46 ml/min; Estimated Glomerular Filt Rate > 60; Glucose 89 mg/dL (65-110); Potassium 3.4 mmol/L (3.4-5.0); Sodium 140 mmol/L (137-145)
--- NOTE | 2021-05-21 08:11 | PM.PNGS ---
Progress Note: A&P Assessment and Plan (1) Small bowel obstruction: Code(s): K56.609 - Unspecified intestinal obstruction, unspecified as to partial versus complete obstruction Status: Acute Assessment and Plan: appears to have resolved. Multiple bowel movements after contrast study yesterday. Patient has no nausea or abdominal pain overnight. Will advance to regular diet. Okay to discharge from surgical standpoint. No surgical follow-up needed. Subjective Subjective Date/Time Seen: 05/21/21 08:11 Patient reports: no new complaints, feels better, pain is less (No abdominal pain at all), diarrhea ( multiple BMs after Gastrografin study yesterday, not unexpected) and afebrile Review of Systems Review of Systems: All systems reviewed & are unremarkable except as noted in HPI and below Constitutional: Constitutional: Denies headache(s) Cardiovascular: Cardiovascular: Denies chest pain and Denies dyspnea Respiratory: Respiratory: Denies cough and Denies dyspnea Gastrointestinal: Gastrointestinal: Reports as per HPI Exam Const: General: comfortable and no acute distress; No confusion Orientation/consciousness: patient oriented x3 and No confusion GI: GI Palp: Yes Soft to palpation, Yes Tenderness to palpation present (GI), No Guarding due to palpation present (GI) and No Rebound tenderness present Auscultation: normal bowel sounds Objective Data Vital Signs Vital Signs: Vital Signs - 24 hr 05/20/21 13:53 05/20/21 22:00 05/21/21 05:06 Temperature 35.9 C L 36.7 C 37.2 C Pulse Rate 88 76 82 Respiratory Rate 21 H 18 18 Blood Pressure 137/93 H 149/86 H 148/80 H Pulse Oximetry 100 100 97 Intake/Output Intake/Output: Intake & Output 05/18/21 05/19/21 05/20/21 05/21/21 23:59 23:59 23:59 23:59 Intake Total 2240 2040 1730 1000 Output Total 675 550 900 Balance 1565 1720 873 7230 Meds/Results Medications: Active Medications Generic Name Dose Route Start Last Admin Trade Name Freq PRN Reason Stop Dose Admin Enoxaparin Sodium 40 mg 05/17/21 09:00 05/20/21 07:52 Enoxaparin 40 Mg/0.4 Ml Syringe SUB-Q 40 mg DAILY VANESSA Administration Hydralazine HCl 10 mg 05/16/21 06:38 Hydralazine Hcl 20 Mg/Ml Vial IV PUSH Q4H PRN SBP greater than 160 Ibuprofen 800 mg in 200 mls @ 400 mls/hr 05/16/21 16:04 Caldolor 800 Mg/200 Ml IVPB Q6H PRN Pain Rated 1-3 Morphine Sulfate 1 mg 05/16/21 16:04 Morphine Sulfate (*Crx) 2 Mg/Ml Inj IV PUSH Q2H PRN Pain Rated 4-6 Morphine Sulfate 2 mg 05/16/21 16:04 05/17/21 18:31 Morphine Sulfate (*Crx) 4 Mg/Ml Inj IV PUSH 2 mg Q2H PRN Administration Pain Rated 7-10 Nicotine 1 patch 05/16/21 09:00 05/20/21 07:52 Nicotine (*Pbkc) 14 Mg Patch TRANSDERM 1 patch QAM VANESSA Administration Ondansetron HCl 4 mg 05/16/21 02:41 05/17/21 18:31 Ondansetron Inj 4 Mg/2 Ml Vial IV PUSH 4 mg Q4H PRN Administration Nausea Radiology Results: ITS Impressions Abdomen/Pelvis CT 05/16/21 09:59 IMPRESSION: 1. Dilated fluid-filled small bowel with transition in the pelvis, consistent with obstruction. No evidence for perforation. 2: Paget's disease of the left hemipelvis. Abdomen X-Ray 05/19/21 08:48 IMPRESSION: 1. Small bowel transit time between sometime between 24-48 hours hours. Significantly delayed. 2. Moderately distended small bowel unchanged compared to yesterday. 3. Nasogastric tube in position. Upper GI Series 05/20/21 11:54 IMPRESSION: Considerable improvement of small bowel transit, with near resolution of small bowel dilatation and contrast material in colon by 2 hours Labs Labs: Laboratory Results - last 24 hr 05/21/21 05/21/21 05:45 05:45 WBC 7.5 RBC 3.67 L Hgb 10.9 L Hct 33.4 L MCV 91.0 MCH 29.7 MCHC 32.6 RDW 14.6 H Plt Count 225 MPV 10.1 Sodium 140 Potassium 3.4 Chloride 111 H Carbon Diox
[2021-05-21] MEDS: ENOXAPARIN 40 MG/0.4 ML SYRINGE SUB-Q (08:36)
[2021-05-21] MEDS: NICOTINE (*PBKC) 14 MG PATCH 1 PATCH TRANSDERM (08:37)
--- NOTE | 2021-05-21 11:39 | PM.DS ---
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 No evidence for perforation, Paget's disease of the left hemipelvis. 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 Repeat Sm Bowel follow through Considerable improvement of small bowel transit, with near resolution of small bowel dilatation and contrast material in colon by 2 hours General surgery has been consulted, recommendations apprecaited NG tube placed in radiology to [place] RAVI 05/21 Slowly incorporate a diet, advance per surgeon KUB (05/19/21) Small bowel transit time between sometime between 24-48 hours hours. Significantly delayed, Moderately distended small bowel unchanged compared to yesterday, Nasogastric tube in position. Dilaudid 1 mg q.4 hours PRN for pain IV fluid hydration 125ml/hr Zofran 4mg IV Q4hr PRN Tolerating oral intake (2) Tobacco use: Code(s): Z72.0 - Tobacco use Status: Chronic Assessment and Plan: chronic tobacco abuse 14 mg nicotine patch not interested in smoking cessation education at this time (3) Essential hypertension: Code(s): I10 - Essential (primary) hypertension Status: Acute Assessment and Plan: Stable history of hypertension but blood pressure is currently relatively stable IV hydralazine as needed for systolic blood pressures greater than 160 add DBP >90 since NPO Resume home meds (4) Memory impairment: Code(s): R41.3 - Other amnesia Status: Chronic Assessment and Plan: SLUMS score of less than 18 DS: Summary Hospital Course Hospital Course: Audie Ruiz 86-year-old male with a past medical history of hypertension and multiple bowel obstructions requiring multiple exploratory laparotomies who presented to the ER as with abdominal pain that started around 8:00 p.m. 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 He reported that each episode required surgical intervention. 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 He again presented to the hospital March 2017 at which time he was transferred to [facility] for evaluation due to recurrence of volvulus in bowel obstruction. He was then admitted again March 2019 and again had adhesion lysis at this facility. The patient reported that he ate spaghetti around 5:00 p.m.. Approximately 3 hours later he began having generalized abdominal pain was cramping and 8/10 in intensity. Shortly thereafter he began having in bilious emesis. His symptoms were similar to his prior episodes of bowel obstruction. He reports that he had not had a bowel movement in a couple of days. But after he arrived to the ER he has actually had 2 normally formed bowel movements without hematochezia or melena. Palpation of his abdomen and makes pain worse. He has not noticed any relieving factors. The patient was unable to even tolerate nurses approaching him with a NG tube. He agreed to consider letting the nurses on the medical floor attempt an NG tube a little bit later. The patient has had a history of 3 other small bowel obstructions all of which ended in surgical management. He does still continue to smoke about a half a pack of cigarettes per day. He denied any shortness of breath or upper respiratory symptoms. He had a COVID PCR performed in the ER that was negative. Recurre
== END 2021-05-21 12:20 | disposition home or self-care (01) | DRG 390 ==
LOC: ANHED 05-16 02:43 → ANH3MEDSUR 05-16 05:15
PROVIDERS: Surgery; Admitting Provider Internal Medicine; Emergency Provider Emergency Medicine; PCP Physician Assistant; Visit Provider Nurse Practitioner
DX: K56.609 Unspecified intestinal obstruction, unspecified as to partial versus complete obstruction (principal); K56.2 Volvulus; I10 Essential (primary) hypertension; Z20.822 Contact with and (suspected) exposure to COVID-19; R41.3 Other amnesia; E78.5 Hyperlipidemia, unspecified; I48.0 Paroxysmal atrial fibrillation; F03.90 Unspecified dementia, unspecified severity, without behavioral disturbance, psychotic disturbance, mood disturbance, and anxiety; F17.210 Nicotine dependence, cigarettes, uncomplicated
CPT/HCPCS: 36415; 74018; 74177; 74240; 74248; 80048; 80053; 81001; 83605; 83690; 83735; 85025; 85027; 85055; 87502; 96361; 96374; 96375; 96376; 97162; 97165; 99285; A9270; C9803; G0378; J1170; J1650; J2060; J2270; J2405; J3480; J7030; Q9967; U0003; U0005

== ENCOUNTER 2022-09-06 23:00 | Emergency (ER) | payer MEDICARE, SELFPAY ==
--- NOTE | ~2022-09-06 | CT_ITS ---
CT of the Abdomen and Pelvis: Indication: Abdominal distention Technique: 2.5 mm axial scans were obtained through the abdomen and pelvis following intravenous adm inistration of 100 cc of Omnipaque 350. Dose reduction technique was used on this scan by utilizing a utomated exposure control and iterative reconstruction technique. The dose-length product (DLP) was 2 89.03 mGy-cm. COMPARISON: 05/16/2021 Findings: Scans through the lung bases are unremarkable. Stable hepatic cysts noted. The spleen, pancreas, gallbladder, adrenals and kidneys are within normal limits. There are atherosclerotic calcifications of the aorta. No lymphadenopathy. There is moderate to large amount of stool with multiple fluid distended small bowel loops, but no fr ank evidence for obstruction. Images through the pelvis were performed. Urinary bladder unremarkable. No pelvic mass evident. No as cites. Impression: Multiple fluid-filled small bowel loops without definite evidence for obstruction. Correlate for ente ritis/diarrheal illness. Moderate to large amount of stool suggests constipation. Reviewed, dictated and finalized at [facility]. Impression: Multiple fluid-filled small bowel loops without definite evidence for obstructi on. Correlate for enteritis/diarrheal illness. Moderate to large amount of stool suggests constipation.
[2022-09-07 07:53] VITALS: BP 162/79; PULSE 90; RESP 18; O2SAT 99
[2022-09-07 08:13] LABS: Alanine Aminotransferase 16 U/L (6-50); Albumin Level 4.2 g/dL (3.5-5.1); Alkaline Phosphatase 70 U/L (38-126); Anion Gap 7 mmol/L (8-16); Aspartate Amino Transferase 24 U/L (17-59); Bilirubin,Total 0.8 mg/dL (0.2-1.3); Blood Urea Nitrogen 18 mg/dL (9-20); Calcium 8.7 mg/dL (8.4-10.2); Carbon Dioxide 28 mmol/L (22-30); Chloride 104 mmol/L (98-107); Estimated Glomerular Filt Rate > 60; Glucose 90 mg/dL (65-110); Lactic Acid 0.6 mmol/L (0.7-2.0); Sodium 139 mmol/L (137-145)
--- NOTE | 2022-09-07 08:13 | ED.ABDPAIN ---
HPI - Abdominal Pain General Chief Complaint: Abdominal Pain Time Seen by Provider: 09/07/22 05:05 Source: patient, family, EMS and RN notes reviewed Mode of arrival: EMS Limitations: no limitations History of Present Illness HPI narrative: This is an 87 year old with history of small bowel obstruction who presents for evaluation mid abdominal pain. He states around 8 pm he developed abdominal crampin with nausea and emesis x 1. He called EMS and his pain resolved on their arrival. His family is at bedside and they report patient continues to have abdominal distension. His last bowel movement was yesterday. They are concerned that patient may have a bowel obstruction. He denies fever, chills, dysuria, hematuria or urinary hesitancy. Related Data Allergies Allergy/AdvReac Type Severity Reaction Status Date / Time No Known Drug Allergies Allergy Unknown Other Verified 09/07/22 07:55 Review of Systems Constitutional: Constitutional: Denies weakness Cardiovascular: Cardiovascular: Denies syncope, Denies rapid heart rate, Denies irregular heart rhythm, Denies leg edema and Denies dyspnea Respiratory: Respiratory: Denies chest congestion, Denies hemoptysis, Denies excessive phlegm production and Denies dyspnea Gastrointestinal: Gastrointestinal: Reports abdominal pain, Denies hematochezia, Denies diarrhea, Reports nausea and Reports vomiting Genitourinary: Genitourinary: Denies hematuria, Denies dysuria, Denies penile discharge and Denies testicular pain Musculoskeletal: Musculoskeletal: Denies joint swelling, Denies loss of height and Denies muscle weakness Neurologic: Denies syncope, Denies focal weakness and Denies weakness PMFSH Past Medical History Medical History HTN (hypertension) Hyperlipidemia Paroxysmal A-fib Brief episode of paroxysmal AFib following exploratory laparotomy in 2019 Surgical History Surgical History History of exploratory laparotomy Most recent abdominal surgery was 03/2019 Family History Family History Other Essential hypertension Social History Social History Social History: Patient lives with they have been together for almost 40 years. He has smoked as much as a pack of cigarettes per day but has cut down to 1 pack every 2.5 days. He has no interest in quitting smoking. He denies any alcohol use or illicit substance use. 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 He has 1 child. Code status: Full code Surrogate decision maker: Smoking packs per day: 1 Smoking cigarettes per day: 20.0 Years smoked: 70 Smoking pack-years: 70.00 Smoking status: Current every day smoker Tobacco type: cigarettes Second hand tobacco smoke exposure: No Alcohol intake: never Substance use: never Substance use type: does not use Lack of Transportation: No Lack of Food: Never True Current Housing: I Have Housing Concerned About Future Housing: No Difficulty Paying Gas/Electric Bills: No Difficulty Paying for Meds: No Currently Unemployed: No Education: High School Diploma/GED Difficulty w/ Childcare or Family Care: No Gender identity (if verbalized by the patient): Male Sexual Orientation (if Verbalized by the Patient): Straight or Heterosexual Spiritual care concerns: No Agree to blood products: Yes Exam Const: General: alert Nutritional Appearance: well nourished Orientation/consciousness: patient oriented x3 HENMT: Head: normal to inspection Eyes: EOM: EOMs intact bilaterally Chest: Chest palpation & inspection: normal inspection of the chest Resp: Effort & Inspection: normal respiratory effort Auscultation: clear to auscultation bilaterally Cardio: Rate: regular rate Rhythm: regular rh
[2022-09-07 08:27] LABS: Hematocrit 36.3 % (42.0-52.0); Hemoglobin 11.7 g/dL (14.0-18.0); Mean Corpuscular Hemoglobin 30.6 pg (26-34); Red Blood Count 3.82 M/mm3 (4.6-6.20); White Blood Count 11.2 K/mm3 (4.5-10.0)
[2022-09-07 08:28] LABS: Basophils Absolute Auto 0.1 K/mm3 (0.0-0.1); Basophils Percent Auto 0.5 % (0.2-1.2); Eosinophils Absolute Auto 0.1 K/mm3 (0-0.3); Eosinophils Percent Auto 0.7 % (0-4.4); Immature Granulocyte Absolute 0.04 K/mm3 (0.00-0.031); Immature Granulocyte Percent A 0.4 % (0-0.5); Lymphocytes Absolute Auto 2.34 K/mm3 (0.9-3.2); Lymphocytes Percent Auto 20.9 % (18.3-44.2); Mean Corpuscular HGB Conc 32.2 g/dl (32-36); Mean Platelet Volume 9.6 fl (7.4-10.4); Monocytes Absolute Auto 1.2 K/mm3 (0.1-0.6); Monocytes Percent Auto 10.7 % (2.6-8.5); Neutrophils Absolute Auto 7.5 K/mm3 (1.3-6.7); Neutrophils Percent Auto 66.8 % (45.5-73.1); Platelet Count Result 231 k/mm3 (150-375); Red Cell Distribution Width 15.7 % (11.5-14.5)
[2022-09-07 08:46] LABS: Lipase 48 U/L (23-300)
[2022-09-07] MEDS: SODIUM CHLORIDE 0.9% IV 1,000 ML 999 ML IV CONT (08:57)
[2022-09-07 09:07] LABS: Add Urine Microscopic? NO; Appearance Urine Clear (Clear); Bilirubin Urine 1+ (Negative); Blood Urine Negative (Negative); Color Urine Yellow (Yellow); Glucose Urine UA Negative (Negative); Ketones Urine Negative (Negative); Leukocyte Esterase Ur Negative LEU/UL (Negative); Nitrate Urine Negative (Negative); Protein Urine Negative (Negative); Specific Grav Ur 1.025 (1.001-1.035); pH Urine 5.5 (5.0-9.0)
== END 2022-09-07 10:02 | disposition home or self-care (01) ==
PROVIDERS: Emergency Provider General Practice; PCP Physician Assistant
DX: K59.00 Constipation, unspecified (principal); R10.10 Upper abdominal pain, unspecified; I10 Essential (primary) hypertension; E78.5 Hyperlipidemia, unspecified; F17.210 Nicotine dependence, cigarettes, uncomplicated
CPT/HCPCS: 36415; 74177; 80053; 81003; 83605; 83690; 85025; 96360; 99284; J7030; Q9967

== ENCOUNTER 2023-12-06 23:17 | Inpatient (IN) | payer MEDICARE, SELFPAY ==
--- NOTE | ~2023-12-06 | XR_ITS ---
XR abdomen gastric tube insert Ordering provider: KORINA Umana History: . verify NG placement . Comparison: None. FINDINGS/impression: BOWEL: The tip of the nasogastric tube is seen in the stomach. Sidehole is at the gastroesophageal ju nction. Advancement by 3 to 4 cm is advised. Distended bowel loops are seen. Nonobstructive bowel gas pattern. ORGANOMEGALY: None. SIGNIFICANT PATHOLOGIC CALCIFICATIONS: None. OTHER: No free air is seen under the diaphragm. Reviewed, dictated and finalized at location A.
--- NOTE | ~2023-12-06 | XR_ITS ---
EXAMINATION: XR sm bowel follow through DATE: 12/07/2023 13:38 INDICATION: Small bowel obstruction. TECHNIQUE: Oral contrast was administered, and a time course of radiographs of the abdomen was obtain ed. Fluoroscopy of the small bowel was not performed. Fluoroscopy exposure time was 0 minutes. The to neno number of images was 9. COMPARISON: Abdomen radiographs 05/19/2021, CT abdomen and pelvis 09/07/2022 FINDINGS: There are multiple dilated loops of small bowel. The colon is decompressed. The nasogastric tube tip is in the stomach. At 4 hours, contrast remains in the dilated small bowel. There is Paget disease in volving left pelvis. IMPRESSION: 1. Dilated small bowel without passage of contrast beyond the dilated small bowel by 4 hours, consist ent with small bowel obstruction. Reviewed, dictated and finalized at location A. IMPRESSION: 1. Dilated small bowel without passage of contrast beyond the dilated small bow el by 4 hours, consistent with small bowel obstruction.
--- NOTE | ~2023-12-06 | XR_ITS ---
XR abdomen gastric tube insert Ordering provider: Jackson Stroud MD History: . NGT placement . Comparison: None. FINDINGS/impression: BOWEL: Nasogastric tube with the tip in the body of the stomach. Radiopaque material is seen in the s tomach. Colonic loops with distention. Reviewed, dictated and finalized at location A.
--- NOTE | ~2023-12-06 | US_ITS ---
EXAMINATION: US renal BI DATE: 12/09/2023 14:20 INDICATION: Renal failure. TECHNIQUE: Multiple ultrasound grayscale images of the kidneys were obtained. COMPARISON: CT abdomen and pelvis 12/07/2023 FINDINGS: The right kidney measures 10.0 x 3.7 x 4.5 cm. The left kidney measures 11.4 x 5.4 x 3.7 cm. The kidn eys demonstrate normal parenchymal echogenicity. There is no hydronephrosis. The bladder is normal. IMPRESSION: 1. Normal kidneys. No hydronephrosis. Reviewed, dictated and finalized at location A.
--- NOTE | ~2023-12-06 | XR_ITS ---
Supine and upright views of the abdomen Clinical history: Small bowel obstruction COMPARISON: 12/07/2023 Findings: NG tube in satisfactory position. Multiple distended small bowel loops are present. Probabl e air within the urinary bladder. No abnormal mass lesion or calcification is seen. There is Paget's disease extensively involving the left hemipelvis. Impression: Multiple distended small bowel is could reflect obstruction versus ileus. NG tube in place. Probable air within the urinary bladder. This may be iatrogenic. Paget's disease involving the left hemipelvis. Reviewed, dictated and finalized at location . Impression: Multiple distended small bowel is could reflect obstruction versus ileus. NG tu be in place. Probable air within the urinary bladder. This may be iatrogenic. Paget's disease involving the left hemipelvis.
--- NOTE | ~2023-12-06 | CT_ITS ---
CT of the Abdomen and Pelvis: Indication: Abdominal pain Technique: 2.5 mm axial scans were obtained through the abdomen and pelvis following intravenous adm inistration of 100 cc of Omnipaque 350. Dose reduction technique was used on this scan by utilizing a utomated exposure control and iterative reconstruction technique. The dose-length product (DLP) was 3 52.04 mGy-cm. COMPARISON: 09/07/2022 Findings: Scans through the lung bases demonstrates multiple small groundglass nodules in the right middle lobe.. Stable hepatic cysts. The spleen, pancreas, gallbladder, adrenals and kidneys are within normal limit s. There are atherosclerotic calcifications of the aorta. No lymphadenopathy. Multiple dilated small bowel loops are present along with distended stomach. Distal small bowel is de compressed. Probable transition point identified in the mid abdomen (axial image 111, sagittal image 87). Images through the pelvis were performed. Urinary bladder unremarkable. No pelvic mass seen. No ascit es. There is Paget's disease diffusely involving the left pelvic bones. Impression: Small bowel obstruction, probable transition point as detailed above. Multiple small groundglass nodules in the right middle lobe suggest infectious/inflammatory process. 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 Reviewed, dictated and finalized at location . Impression: Small bowel obstruction, probable transition point as detailed above. Multiple small groundglass nodules in the right middle lobe suggest infectious/ inflammatory process. 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
--- NOTE | ~2023-12-06 | XR_ITS ---
Upright portable view of the abdomen Clinical history: NG tube placement Findings: NG tube is in satisfactory position. Probable multiple distended small bowel loops. No free air evident. No abnormal mass lesion or calcification is seen. Osseous structures are intact. Impression: NG tube in satisfactory position. Reviewed, dictated and finalized at location . Impression: NG tube in satisfactory position.
[2023-12-06 23:25] VITALS: BP 122/88; PULSE 82; RESP 16; TEMP 36.4; O2SAT 96
[2023-12-06 23:45] LABS: Basophils Absolute Auto 0.1 K/mm3 (0.0-0.1); Basophils Percent Auto 0.3 % (0.2-1.2); Eosinophils Absolute Auto 0.1 K/mm3 (0-0.3); Eosinophils Percent Auto 0.6 % (0-4.4); Hematocrit 42.6 % (42.0-52.0); Hemoglobin 13.7 g/dL (14.0-18.0); Immature Granulocyte Absolute 0.05 K/mm3 (0.00-0.031); Immature Granulocyte Percent A 0.3 % (0-0.5); Lymphocytes Absolute Auto 3.63 K/mm3 (0.9-3.2); Mean Corpuscular HGB Conc 32.2 g/dl (32-36); Mean Corpuscular Hemoglobin 30.7 pg (26-34); Mean Corpuscular Volume 95.5 fl (80-100); Mean Platelet Volume 10.6 fl (7.4-10.4); Monocytes Absolute Auto 1.2 K/mm3 (0.1-0.6); Neutrophils Absolute Auto 11.5 K/mm3 (1.3-6.7); Neutrophils Percent Auto 69.8 % (45.5-73.1); Nucleated Red Blood Cells Perc 0.1 % (0.0-0.2); Platelet Count Result 302 k/mm3 (150-375); Red Blood Count 4.46 M/mm3 (4.6-6.20); White Blood Count 16.5 K/mm3 (4.5-10.0)
[2023-12-06 23:55] LABS: Alanine Aminotransferase 17 U/L (6-50); Albumin Level 4.5 g/dL (3.5-5.1); Alkaline Phosphatase 85 U/L (38-126); Anion Gap 13 mmol/L (4-12); Aspartate Amino Transferase 35 U/L (17-59); Bilirubin,Total 0.8 mg/dL (0.2-1.3); Blood Urea Nitrogen 16 mg/dL (9-20); Calcium 9.4 mg/dL (8.4-10.2); Carbon Dioxide 24 mmol/L (22-30); Chloride 103 mmol/L (98-107); Estimated CRCL calculation 42 ml/min; Estimated Glomerular Filt Rate > 60; Glucose 124 mg/dL (65-110); Lipase 109 U/L (23-300); Potassium 3.7 mmol/L (3.4-5.0); Sodium 140 mmol/L (137-145)
[2023-12-07] VITALS (7 sets, daily range): BP systolic 153–184; BP diastolic 89–98; PULSE 103–120; RESP 14–16; TEMP 36.1–36.9; O2SAT 93–100; BMI 20.4
[2023-12-07] MEDS: ONDANSETRON INJ 4 MG/2 ML VIAL IV PUSH ×4 (01:20→17:46)
[2023-12-07] MEDS: SODIUM CHLORIDE 0.9% IV 1,000 ML 999 ML IV CONT (01:20)
[2023-12-07] MEDS: MORPHINE SULFATE (*CRX) 4 MG/ML INJ IV PUSH (01:20)
[2023-12-07 01:32] LABS: Lactic Acid Reflex 2.7 mmol/L (0.7-2.0)
[2023-12-07 03:25] LABS: Lactic Acid Reflex 1.7 mmol/L (0.7-2.0)
[2023-12-07 04:19] LABS: Reflex Lactic Acid Yes or No Add Lactic
--- NOTE | 2023-12-07 04:33 | ED.GENADULT ---
HPI - General Adult General Chief complaint: Abdominal Pain Stated complaint: abdominal pain Time Seen by Provider: 12/07/23 01:11 History of Present Illness HPI narrative: Patient is a 88-year-old gentleman who presents emergency department chief complaint of abdominal pain. Patient reports had some vomiting reports he has prior history of a bowel obstruction said that 3 other episodes of that in the past. Patient reports this feels similar to whenever he had the bowel obstruction denies fever. Related Data Allergies Allergy/AdvReac Type Severity Reaction Status Date / Time No Known Drug Allergies Allergy Unknown Other Verified 12/06/23 23:29 Review of Systems Review of Systems: A 10 system review of systems was completed on the patient and is negative except for what is stated in the HPI. Nursing and ancillary documentation was reviewed. [facility] Past Medical History Medical History HTN (hypertension) Hyperlipidemia Paroxysmal A-fib Brief episode of paroxysmal AFib following exploratory laparotomy in 2019 Surgical History Surgical History History of exploratory laparotomy Most recent abdominal surgery was 03/2019 Family History Family History Other Essential hypertension Social History Social History Social History: Patient lives with they have been together for almost 40 years. He has smoked as much as a pack of cigarettes per day but has cut down to 1 pack every 2.5 days. He has no interest in quitting smoking. He denies any alcohol use or illicit substance use. 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 He has 1 child. Code status: Full code Surrogate decision maker: Smoking packs per day: 1 Smoking cigarettes per day: 20.0 Years smoked: 70 Smoking pack-years: 70.00 Smoking status: Current every day smoker Tobacco type: cigarettes Second hand tobacco smoke exposure: No Alcohol intake: never Substance use: never Substance use type: does not use Lack of Transportation: No Lack of Food: Never True Current Housing: I Have Housing Concerned About Future Housing: No Difficulty Paying Gas/Electric Bills: No Difficulty Paying for Meds: No Currently Unemployed: No Education: High School Diploma/GED Difficulty w/ Childcare or Family Care: No Gender identity (if verbalized by the patient): Male Sexual Orientation (if Verbalized by the Patient): Straight or Heterosexual Spiritual care concerns: No Agree to blood products: Yes Exam Narrative: GENERAL: Well-appearing, well-nourished, and in no acute distress. HEAD: Normocephalic, atraumatic. EYES: PERRLA and EOMI. ENT: Nares clear, no rhinorrhea or epistaxis. Mucous membranes moist. NECK: Supple. CHEST: Clear to auscultation. No respiratory distress. HEART: Regular rate and rhythm. No murmur heard. Normal peripheral pulses. ABDOMEN: Soft, soft diffusely tender to palpation, nondistended, normal active bowel sounds. EXTREMITIES: Normal range of motion. No edema. SKIN: Warm, dry, no rash. NEURO: No focal deficits. Alert and oriented x3. PSYCH: Normal mood and affect. Course Vital Signs Vital signs: Vital Signs Temperature 36.4 C 12/06/23 23:25 Pulse Rate 82 12/06/23 23:25 Respiratory Rate 16 12/06/23 23:25 Blood Pressure 122/88 12/06/23 23:25 Pulse Oximetry 96 12/06/23 23:25 Oxygen Delivery Room Air 12/06/23 23:25 Temperature 36.4 C 12/06/23 23:25 Pulse Rate 82 12/06/23 23:25 Respiratory Rate 16 12/06/23 23:25 Blood Pressure 122/88 12/06/23 23:25 Pulse Oximetry 96 12/06/23 23:25 Oxygen Delivery Room Air 12/06/23 23:25 Medical Decision Making [facility] Narrative Med
[2023-12-07 04:54] LABS: Add Urine Microscopic? NO; Appearance Urine Clear (Clear); Bilirubin Urine Negative (Negative); Blood Urine Negative (Negative); Color Urine Yellow (Yellow); Glucose Urine UA Negative (Negative); Ketones Urine Negative (Negative); Leukocyte Esterase Ur Negative LEU/UL (Negative); Nitrate Urine Negative (Negative); Protein Urine Negative (Negative); Specific Grav Ur > 1.045 (1.001-1.035); pH Urine 5.5 (5.0-9.0)
[2023-12-07] MEDS: MORPHINE SULFATE (*CRX) 2 MG/ML INJ IV PUSH ×3 (05:11→17:45)
--- NOTE | 2023-12-07 06:16 | ADMGEN ---
This patient, Audie Ruiz, was admitted to [facility] Surg Room 314-01. Patient/family oriented to hospital policies and general routines including ID bracelet, bed and alarms, visiting hours, pain management, procedures, bathroom and other care routines, personal items, smoking policy, room service/diet, and visiting hours. Information on how to activate the Rapid Response Team has been discussed. Patient/Family are encouraged to report perceived risks to care and to ask questions if they do not understand what they are told or what they should do.
[2023-12-07] MEDS: SODIUM CHLORIDE 0.9% IV 1,000 ML 125 ML IV CONT ×3 (06:50→20:39)
--- NOTE | 2023-12-07 08:07 | PM.IMHP ---
H&P: HPI History of Present Illness Date/Time: 12/07/23 08:07 [facility] Past Medical History Medical History HTN (hypertension) Hyperlipidemia Paroxysmal A-fib Brief episode of paroxysmal AFib following exploratory laparotomy in 2018 Surgical History Surgical History History of exploratory laparotomy Most recent abdominal surgery was 03/2019 Family History Family History Other Essential hypertension Social History Social History Social History: Patient lives with they have been together for almost 40 years. He has smoked as much as a pack of cigarettes per day but has cut down to 1 pack every 2.5 days. He has no interest in quitting smoking. He denies any alcohol use or illicit substance use. 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 He has 1 child. Code status: Full code Surrogate decision maker: Smoking packs per day: 1 Smoking cigarettes per day: 20.0 Years smoked: 70 Smoking pack-years: 70.00 Smoking status: Never smoker Tobacco type: cigarettes Second hand tobacco smoke exposure: No Alcohol intake: former Substance use: never Substance use type: does not use Do You Feel Safe in your Home?: Yes Lack of Transportation: No Lack of Food: Never True Current Housing: I Have Housing Concerned About Future Housing: No Difficulty Paying Gas/Electric Bills: No Difficulty Paying for Meds: No Currently Unemployed: No Education: High School Diploma/GED Difficulty w/ Childcare or Family Care: No Gender identity (if verbalized by the patient): Male Sexual Orientation (if Verbalized by the Patient): Straight or Heterosexual Spiritual care concerns: No Agree to blood products: Yes Meds Home Medications and Allergies Home Medications Medication Instructions Recorded Confirmed Type losartan 50 mg tablet 50 mg PO DAILY #90 tabs 04/08/23 Rx Allergies Allergy/AdvReac Type Severity Reaction Status Date / Time No Known Drug Allergies Allergy Unknown Other Verified 12/07/23 06:43 Vital Signs Vital Signs - 24 hr 12/06/23 23:25 12/07/23 05:28 12/07/23 06:45 Temperature 97.6 F 98.4 F Pulse Rate 82 103 H 103 H Respiratory Rate 16 14 16 Blood Pressure 122/88 153/98 H Pulse Oximetry 96 100 100 Oxygen Delivery Room Air Room Air 12/07/23 06:34 Temperature 97.0 F L Pulse Rate 103 H Respiratory Rate 16 Blood Pressure 155/89 H Pulse Oximetry 100 Oxygen Delivery H&P: Results Labs Labs: Short CBC 12/06/23 Range/Units 23:31 WBC 16.5 H (4.5-10.0) K/mm3 Hgb 13.7 L (14.0-18.0) g/dL Hct 42.6 (42.0-52.0) % Plt Count 302 (150-375) k/mm3 BMP 12/06/23 23:31 Sodium 140 Potassium 3.7 Chloride 103 Carbon Dioxide 24 BUN 16 Creatinine 1.20 Glucose 124 H Calcium 9.4 Liver Function 12/06/23 Range/Units 23:31 Total Bilirubin 0.8 (0.2-1.3) mg/dL AST 35 (17-59) U/L ALT 17 (6-50) U/L Alkaline Phosphatase 85 (38-126) U/L Albumin 4.5 (3.5-5.1) g/dL Urine 12/07/23 Range/Units 04:48 Urine Color Yellow (Yellow) Urine Appearance Clear (Clear) Urine pH 5.5 (5.0-9.0) Ur Specific [place] > 1.045 H (1.001-1.035) Urine Protein Negative (Negative) mg/dL Urine Glucose (UA) Negative (Negative) mg/dL
[2023-12-07 09:09] LABS: Lactic Acid Reflex 1.1 mmol/L (0.7-2.0)
--- NOTE | 2023-12-07 09:48 | PM.CNGS ---
Assessment and Plan Assessment and plan (1) Small bowel obstruction: Code(s): K56.609 - Unspecified intestinal obstruction, unspecified as to partial versus complete obstruction Status: Acute Assessment and Plan: Multiple previous abdominal surgeries for small bowel obstructions in the past. CT scan showed SBO. No diffuse peritoneal signs on exam. Continue conservative management with NG decompression, bowel rest, IV fluids, and analgesics for now. Will order small bowel series to further evaluate. May require surgical exploration if he has evidence of a high grade small bowel obstruction. (2) Essential hypertension: Code(s): I10 - Essential (primary) hypertension Status: Acute Plan I have discussed the patient's case and plan of care with Dr. Carbone. Thank you for allowing us to see the patient in consultation and we will continue to follow along with you. History of Present Illness Consult details Consult date: 12/07/23 Reason for consult: other (Small-bowel obstruction) Requesting physician: Lauri Mcrae MD Narrative: This is an 88-year-old man with multiple previous abdominal surgeries and small-bowel obstructions, who presented to the emergency department with abdominal pain. 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 Two surgeries were done here at [facility] in 2014, and in 2016 he was transferred to [facility] and had another surgery there. He then returned in 2018 and had an exploratory laparotomy with massive intra-abdominal enterolysis, release of small-bowel obstruction by Dr. Archer for the same issue. He with hospitalized here at [facility] in 2021 for small-bowel obstruction that was treated conservatively. No issues until this time. Workup in [place] [address] and lactic acid 2.7, which normalized after IV fluids. CT scan of the abdomen and pelvis showed a small-bowel obstruction with possible transition point in the mid abdomen, multiple small ground-glass nodules in the right middle lobe, and packets disease diffusely involving the left pelvic bones. He was admitted to the hospitalist service and NG tube was placed. He is now seen in surgical consultation for the small-bowel obstruction. He just got back up from radiology for the first portion of the SBFT. He vomited in the radiology department and still feels nauseous. Denies abdominal pain. Reports flatus. Unable to tell me his last BM. Review of Systems Review of Systems: All systems reviewed & are unremarkable except as noted in HPI and below PMFSH Past Medical History Medical History HTN (hypertension) Hyperlipidemia Paroxysmal A-fib Brief episode of paroxysmal AFib following exploratory laparotomy in 2019 Surgical History Surgical History History of exploratory laparotomy x 4 in the past for small bowel volvulus (2015 x 2, 2017, and 2019) Family History Family History Other Essential hypertension Social History Social History Social History: Patient lives with they have been together for almost 40 years. He has smoked as much as a pack of cigarettes per day but has cut down to 1 pack every 2.5 days. He has no interest in quitting smoking. He denies any alcohol use or illicit substance use. 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 He has 1 child. Code status: Full code Surrogate decision maker: Smoking packs per day: 1 Smoking cigarettes per day: 20.0 Years smoked: 70 Smoking pack-years: 70.00 Smoking status: Never smoker Tobacco type: cigarettes Second hand tobacco smoke exposure: No Alcohol intake: former Substance use: never Substance use type: does not use Do You Feel
--- NOTE | 2023-12-07 12:00 | PM.IMHP ---
H&P: HPI History of Present Illness Date/Time: 12/07/23 12:00 Chief Complaint: Abdominal pain Narrative: Patient was resting in bed. Spoke with his daughter and . His provided the complete history. She reports patient was doing fine until 5 years ago. His 1st episode of small-bowel obstruction as mentioned happened about 5 years ago and the 2nd 1 happened after 3 months of his 1st episode. In both the episodes surgery was performed. The 3rd episode of small-bowel obstruction happened a year after and he was [facility]. Fourth episode of small-bowel obstruction happened about a year and half and he was brought to [facility] but he was able to clear the bone by small-bowel follow-through x2. Today He completed his first SBFT and pending results. Review of Systems Review of Systems: Except as documented, all other systems were reviewed and are negative. [facility] Past Medical History Medical History HTN (hypertension) Hyperlipidemia Paroxysmal A-fib Brief episode of paroxysmal AFib following exploratory laparotomy in 2019 Surgical History Surgical History History of exploratory laparotomy x 4 in the past for small bowel volvulus (2015 x 2, 2017, and 2019) Family History Family History Other Essential hypertension Social History Social History Social History: Patient lives with they have been together for almost 40 years. He has smoked as much as a pack of cigarettes per day but has cut down to 1 pack every 2.5 days. He has no interest in quitting smoking. He denies any alcohol use or illicit substance use. 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 He has 1 child. Code status: Full code Surrogate decision maker: Smoking packs per day: 1 Smoking cigarettes per day: 20.0 Years smoked: 70 Smoking pack-years: 70.00 Smoking status: Never smoker Tobacco type: cigarettes Second hand tobacco smoke exposure: No Alcohol intake: former Substance use: never Substance use type: does not use Do You Feel Safe in your Home?: Yes Lack of Transportation: No Lack of Food: Never True Current Housing: I Have Housing Concerned About Future Housing: No Difficulty Paying Gas/Electric Bills: No Difficulty Paying for Meds: No Currently Unemployed: No Education: High School Diploma/GED Difficulty w/ Childcare or Family Care: No Gender identity (if verbalized by the patient): Male Sexual Orientation (if Verbalized by the Patient): Straight or Heterosexual Spiritual care concerns: No Agree to blood products: Yes Meds Home Medications and Allergies Home Medications Medication Instructions Recorded Confirmed Type losartan 50 mg tablet 50 mg PO DAILY #90 tabs 04/08/23 Rx Allergies Allergy/AdvReac Type Severity Reaction Status Date / Time No Known Drug Allergies Allergy Unknown Other Verified 12/07/23 06:43 Vital Signs Vital Signs - 24 hr 12/06/23 23:25 12/07/23 05:28 12/07/23 06:45 Temperature 97.6 F 98.4 F Pulse Rate 82 103 H 103 H Respiratory Rate 16 14 16 Blood Pressure 122/88 153/98 H Pulse Oximetry 96 100 100 Oxygen Delivery Room Air Room Air Fraction of Inspired Oxygen 12/07/23 06:34 12/07/23 08:42 Temperature 97.0 F L Pulse Rate 103 H Respiratory Rate 16 Blood Pressure 155/89 H Pulse Oximetry 100 99 Oxygen Delivery Room Air Fraction of Inspired Oxygen 21 H&P: Results Labs Labs: Short CBC 12/06/23 Range/Units 23:31 WBC 16.5 H (4.5-10.0) K/mm3 Hgb 13.7 L (14.0-18.0) g/dL Hct 42.6 (42.0-52.0) % Plt Count 302 (150-375) k/mm3 BMP 12/06/23 23:31 Sodium 140 Potassium 3.7 Chloride 103 Carbon Dioxide 24 BUN 16 Creatinine 1.20 Gluc
[2023-12-07 16:23] LABS: Glucose Point of Care 155 mg/dl (65-105)
[2023-12-07 19:58] LABS: Hematocrit 40.3 % (42.0-52.0); Hemoglobin 13.5 g/dL (14.0-18.0); Mean Corpuscular HGB Conc 33.5 g/dl (32-36); Mean Corpuscular Hemoglobin 31.3 pg (26-34); Mean Corpuscular Volume 93.5 fl (80-100); Mean Platelet Volume 10.6 fl (7.4-10.4); Platelet Count Result 312 k/mm3 (150-375); Red Blood Count 4.31 M/mm3 (4.6-6.20); Red Cell Distribution Width 15.9 % (11.5-14.5); White Blood Count 16.6 K/mm3 (4.5-10.0)
[2023-12-07] MEDS: PANTOPRAZOLE SODIUM IV 40 MG VIAL IV PUSH (20:38)
[2023-12-07 23:38] LABS: Glucose Point of Care 139 mg/dl (65-105)
[2023-12-08] VITALS (17 sets, daily range): BP systolic 102–122; BP diastolic 58–78; PULSE 76–168; RESP 18–20; TEMP 36.6–36.9; O2SAT 93–96
--- NOTE | 2023-12-08 04:55 | ECG_ITS ---
Test Date: 2023-12-08 05:08:25 Measurements Intervals [place] Rate: 174 P: 0 ME: 0 QRS: 22 QRSD: 79 T: 90 QT: 265 QTc: 451 Interpretive Statements ATRIAL FIBRILLATION WITH RAPID VENTRICULAR RESPONSE WITH ABERRANT CONDUCTION OR VENTRICULAR PREMATURE COMPLEXES MODERATE VOLTAGE CRITERIA FOR LVH, CONSIDER NORMAL VARIANT [MEETS CRITERIA IN ONE OF: R(aVL), S(V1), R(V5), R(V5/V6)+S(V1)] NONSPECIFIC ST & T-WAVE ABNORMALITY ABNORMAL RHYTHM ECG No previous ECG available for comparison Electronically Signed On 12-08-2023 14:57:26 CDT by Audie Abel M.D.
[2023-12-08] MEDS: SODIUM CHLORIDE 0.9% IV 1,000 ML 65 ML IV CONT (05:00)
[2023-12-08 05:12] LABS: Glucose Point of Care 125 mg/dl (65-105)
[2023-12-08] MEDS: dilTIAZem HCl INJ 25 MG/5 ML VIAL 10 MG IV PUSH ×2 (05:20→06:19)
--- NOTE | 2023-12-08 05:28 | P.PNCROSS_ITS ---
Event Note Event Note Event Note: Rapid response was called to the patient's room due to heart rate in the 190s p atient found to have atrial fibrillation with rapid ventricular response. patient is laying in bed awake alert 12 lead EKG in process vitals heart rate 190 blood pressure 111/70 general: Patient awake alert laying in bed does not appear in distress HEENT: Atraumatic normocephalic supple no JVD no lymphadenopathies PERRLA EOM intact, NG in place hooked up to low intermittent suction. respiratory: Clear to auscultation bilaterally no wheezes rhonchi or crackles cardiovascular: Tachycardia abdomen: old mid abdomen surgical scar, soft, nontender nondistended no hepatosplenomegaly. extremities: No edema, no clubbing, no cyanosis. central nervous system: Awake alert oriented x3 no focal sensorimotor deficit cranial nerves ii-xii grossly intact skin: Intact assessment and plan: 1. Atrial fibrillation with rapid ventricular response: Will transfer to IMU will start diltiazem drip, Patient given 10 mg of Cardizem IV push x1, CBC, BMP, magnesium, phosphorus. 2. Small-bowel obstruction: Strict NPO, NG to low intermittent suction.
--- NOTE | 2023-12-08 05:34 | PC.NURSE ---
Patient arrived from [facility] as a transfer for treatment of rapid AFib and closer monitoring. Vitals are as charted. Patient denies pain or discomfort. Tele monitoring started.
--- NOTE | 2023-12-08 05:41 | ECG_ITS ---
Test Date: 2023-12-08 06:03:43 Measurements Intervals [place] Rate: 155 P: 0 LA: 0 QRS: 4 QRSD: 82 T: 60 QT: 284 QTc: 456 Interpretive Statements ATRIAL FLUTTER/TACHYCARDIA WITH RAPID VENTRICULAR RESPONSE LEFT VENTRICULAR HYPERTROPHY AND ST-T CHANGE [VOLTAGE CRITERIA PLUS ST/T ABNORMALITY] ABNORMAL ECG Compared to ECG 12/08/2023 05:08:25 ATRIAL FLUTTER HAS REPLACED ATRIAL FIBRILLATION Electronically Signed On 12-08-2023 14:57:51 CDT by Audie Abel M.D.
[2023-12-08 06:01] LABS: Anion Gap 11 mmol/L (4-12); Blood Urea Nitrogen 42 mg/dL (9-20); Calcium 8.1 mg/dL (8.4-10.2); Carbon Dioxide 31 mmol/L (22-30); Chloride 103 mmol/L (98-107); Estimated CRCL calculation 22 ml/min; Estimated Glomerular Filt Rate 35; Glucose 126 mg/dL (65-110); Potassium 3.8 mmol/L (3.4-5.0); Sodium 145 mmol/L (137-145)
[2023-12-08 06:02] LABS: Alanine Aminotransferase 15 U/L (6-50); Albumin Level 3.9 g/dL (3.5-5.1); Alkaline Phosphatase 59 U/L (38-126); Anion Gap 10 mmol/L (4-12); Aspartate Amino Transferase 31 U/L (17-59); Bilirubin,Total 1.6 mg/dL (0.2-1.3); Blood Urea Nitrogen 43 mg/dL (9-20); Calcium 8.1 mg/dL (8.4-10.2); Carbon Dioxide 31 mmol/L (22-30); Chloride 103 mmol/L (98-107); Estimated CRCL calculation 22 ml/min; Estimated Glomerular Filt Rate 35; Glucose 126 mg/dL (65-110); Magnesium 2.3 mg/dL (1.6-2.3); Potassium 3.8 mmol/L (3.4-5.0); Sodium 144 mmol/L (137-145)
[2023-12-08] MEDS: dilTIAZem 100 MG/100 ML 100 MG/100 ML BAG 10 MG IV CONT (06:09)
[2023-12-08 06:20] LABS: Troponin I 0.088 ng/mL (0.000-0.034)
--- NOTE | 2023-12-08 06:21 | PC.NURSE ---
Rapid Response Note- 0450 - Patient found to have HR of 160-190's during AM vitals check. HR sustaining but otherwise VSS. No c/o CP, SOB or fever. Patient alert and oriented, he was Placed on tele and stat EKG - charge nurse notified and Rapid Response called. Dr. Stroud bedside , orders placed, transferred to [facility]- 203. Report given bedside to JANINE Smith. Family unable to be notyied of transfer as information in chart is incorrect. Kiera Orosco RN
[2023-12-08 07:21] LABS: Glucose Point of Care 127 mg/dl (65-105)
[2023-12-08 07:37] LABS: Hematocrit 35.4 % (42.0-52.0); Hemoglobin 11.7 g/dL (14.0-18.0); Mean Corpuscular HGB Conc 33.1 g/dl (32-36); Mean Corpuscular Hemoglobin 31.6 pg (26-34); Mean Corpuscular Volume 95.7 fl (80-100); Mean Platelet Volume 11.3 fl (7.4-10.4); Platelet Count Result 248 k/mm3 (150-375); Red Cell Distribution Width 16.1 % (11.5-14.5)
[2023-12-08] MEDS: PANTOPRAZOLE SODIUM IV 40 MG VIAL IV PUSH ×2 (08:47→21:21)
--- NOTE | 2023-12-08 09:27 | PM.PNGS ---
Progress Note: A&P Assessment and Plan (1) Small bowel obstruction: Code(s): K56.609 - Unspecified intestinal obstruction, unspecified as to partial versus complete obstruction Status: Acute Assessment and Plan: exam benign, will clamp NG, cont serial exams, encourage OOB Subjective Subjective Date/Time Seen: 12/08/23 09:27 Interval history: events overnight noted, reports he is feeling better today, no further abd pain, N/V, +flatus Review of Systems Review of Systems: All systems reviewed & are unremarkable except as noted in HPI and below Exam Const: General: cooperative, comfortable and no acute distress Resp: Auscultation: diminished lung sounds Cardio: Rate: tachycardic Rhythm: abnormal rhythm GI: Inspection: normal to inspection, non-distended and incision GI Palp: No abdominal tenderness, Yes Soft to palpation, No Tenderness to palpation present (GI), No Guarding due to palpation present (GI) and No Rigid due to palpation Objective Data Vital Signs Vital Signs: Vital Signs - 24 hr 12/07/23 11:30 12/07/23 14:00 12/07/23 20:00 Temperature 36.8 C Pulse Rate 116 H 116 H Respiratory Rate 16 16 Blood Pressure 153/95 H Pulse Oximetry 96 96 Oxygen Delivery Room Air Room Air Fraction of Inspired Oxygen 21 12/07/23 22:00 12/08/23 05:35 12/08/23 06:09 Temperature 36.9 C 36.9 C Pulse Rate 120 H 115 H 153 H Respiratory Rate 16 18 Blood Pressure 184/96 H 108/69 Pulse Oximetry 93 94 Oxygen Delivery Fraction of Inspired Oxygen 12/08/23 07:26 12/08/23 05:02 Temperature 36.6 C Pulse Rate 123 H 168 H Respiratory Rate 20 Blood Pressure 107/65 102/78 Pulse Oximetry 95 Oxygen Delivery Fraction of Inspired Oxygen Intake/Output Intake/Output: Intake & Output 12/05/23 12/06/23 12/07/23 12/08/23 23:59 23:59 23:59 23:59 Intake Total 2350 1000 Output Total 3300 550 Balance -950 450 Meds/Results Medications: Active Medications Generic Name Dose Route Start Last Admin Trade Name Freq PRN Reason Stop Dose Admin Sodium Chloride 1,000 mls @ 65 mls/hr 12/07/23 04:35 12/08/23 05:00 Normal Saline Iv IV CONT 65 mls/hr .[id number] VANESSA Administration Diltiazem HCl 100 mg in 100 mls @ 10 mls/hr 12/08/23 05:35 12/08/23 06:09 Cardizem 100 Mg/100 Ml IV CONT 10 mg/hr .Q10H VANESSA 10 mls/hr Administration Protocol 10 MG/HR Latanoprost 1 drop 12/08/23 21:00 Latanoprost 0.005% Op Soln 2.5 Ml Btl EACH EYE HS VANESSA Morphine Sulfate 2 mg 12/07/23 04:35 12/07/23 17:45 Morphine Sulfate (*Crx) 2 Mg/Ml Inj IV PUSH 2 mg Q2H PRN Administration Pain Rated 7-10 Ondansetron HCl 4 mg 12/07/23 04:35 12/07/23 17:46 Ondansetron Inj 4 Mg/2 Ml Vial IV PUSH 4 mg Q4H PRN Administration Nausea Pantoprazole Sodium 40 mg 12/07/23 21:00 12/08/23 08:47 Pantoprazole Sodium Iv 40 Mg Vial IV PUSH 40 mg Q12HR VANESSA Administration Radiology Results: ITS Impressions Abdomen/Pelvis CT 12/07/23 05:41 Impression: Small bowel obstruction, probable transition point as detailed above. Multiple small groundglass nodules in the right middle lobe suggest infectious/inflammatory process. 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 Small Bowel X-Ray 12/07/23 14:00 IMPRESSION: 1. Dilated small bowel without passage of contrast beyond the dilated small bowel by 4 hours, consistent with small bowel obstruction. Abdomen X-Ray 12/08/23 06:18 Impression: Multiple distended small bowel is could reflect obstruction versus ileus. NG tube in place. Probable air within the urinary bladder. This may be iatrogenic. Paget's disease involving the left hemipelvis. Labs Labs: Laboratory Results - last 24 hr 12/07/23 12/07/23 12/07/23 16:21 19:37 23:36 WBC 16.6 H RBC 4.31 L Hgb 13.5 L Hct 40.3 L MCV 93.[address]
--- NOTE | 2023-12-08 10:14 | ECG_ITS ---
Test Date: 2023-12-08 11:23:38 Measurements Intervals [place] Rate: 86 P: 37 NH: 160 QRS: -9 QRSD: 89 T: 56 QT: 331 QTc: 397 Interpretive Statements SINUS RHYTHM NONSPECIFIC T-WAVE ABNORMALITY ABNORMAL ECG Compared to ECG 12/08/2023 06:03:43 SINUS RHYTHM REPLACES ATRIAL FLUTTER Electronically Signed On 12-08-2023 15:04:21 CDT by Audie Abel M.D.
[2023-12-08 11:58] LABS: Glucose Point of Care 108 mg/dl (65-105)
--- NOTE | 2023-12-08 15:45 | PM.IMPN ---
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 Associated vomiting. History of bowel obstruction x3. Multiple previous abdominal surgeries. 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 -2015 he had 2 surgeries at [place] and 2017 he was [facility] and in 2019 he had for EXPLORATORY LAPAROTOMY with massive intra-abdominal enterolysis, release of small-bowel obstruction by Dr. Archer. CT scan of the abdomen and pelvis shows small-bowel obstruction with possible transition point in the midabdomen, multiple ground-glass nodules in the right middle lobe and packets disease diffusely involving the left pelvic bone. General surgery consulted. NG tube has been placed. NG clamped today passing flatus. New onset AFib with RVR overnight was started on diltiazem drip. Already converted to sinus rhythm. History of proximal atrial fibrillation following exploratory laparotomy in 2019 Electrolytes are all okay. Check TSH. Will transition to oral Cardizem. Due to brief episode will not continue anticoagulation. Will check echo. Chest Vasc score is 3 if remains recurrent Multiple small ground-glass nodules in right middle lobe suggest infectious inflammatory process could be aspiration will start Zosyn BRIE check renal ultrasound continue IV hydration continue IV hydration Troponin mildly elevated will recheck Hypertension Hyperlipidemia History of dementia DVT prophylaxis start heparin subQ Subjective Date/time seen: 12/08/23 15:45 Interval history: Events noted. Patient went into AFib with RVR with heart rate in 190s. Was started on diltiazem drip. Patient back to sinus rhythm at 10:00 a.m. this morning Review of Systems Review of Systems: All systems reviewed & are unremarkable except as noted in HPI and below Exam Narrative: GENERAL: Well-appearing, well-nourished, and in no acute distress. HEAD: Normocephalic, atraumatic. EYES: PERRLA and EOMI. ENT: Nares clear, no rhinorrhea or epistaxis. Mucous membranes moist. NG tube in place NECK: Supple. CHEST: Clear to auscultation. No respiratory distress. HEART: Regular rate and rhythm. No murmur heard. Normal peripheral pulses. ABDOMEN: Soft, soft nontender, nondistended, normal active bowel sounds. EXTREMITIES: Normal range of motion. No edema. SKIN: Warm, dry, no rash. NEURO: No focal deficits. Alert and oriented x3. PSYCH: Normal mood and affect. Objective Data Vital Signs Vital Signs: Vital Signs - 24 hr 12/07/23 20:00 12/07/23 22:00 12/08/23 05:35 Temperature 98.5 F 98.5 F Pulse Rate 116 H 120 H 115 H Respiratory Rate 16 16 18 Blood Pressure 184/96 H 108/69 Pulse Oximetry 96 93 94 Oxygen Delivery Room Air Fraction of Inspired Oxygen 21 12/08/23 06:09 12/08/23 07:26 12/08/23 05:02 Temperature 97.8 F Pulse Rate 153 H 123 H 168 H Respiratory Rate 20 Blood Pressure 107/65 102/78 Pulse Oximetry 95 Oxygen Delivery Fraction of Inspired Oxygen 12/08/23 08:03 12/08/23 10:02 12/08/23 11:45 Temperature 98.5 F Pulse Rate 89 93 87 Respiratory Rate 20 Blood Pressure 117/69 Pulse Oximetry 96 Oxygen Delivery Fraction of Inspired Oxygen 12/08/23 12:00 12/08/23 14:00 12/08/23 15:00 Temperature 97.8 F Pulse Rate 86 85 80 Respiratory Rate 20 Blood Pressure 122/65 Pulse Oximetry 93 Oxygen Delivery Fraction of Inspired Oxygen Intake/Output Intake/Output: In
[2023-12-08] MEDS: dilTIAZem HCL 30 MG TABLET PO ×2 (15:55→18:35)
[2023-12-08 18:00] LABS: Anion Gap 9 mmol/L (4-12); Blood Urea Nitrogen 51 mg/dL (9-20); Calcium 8.3 mg/dL (8.4-10.2); Carbon Dioxide 34 mmol/L (22-30); Chloride 101 mmol/L (98-107); Estimated CRCL calculation 25 ml/min; Estimated Glomerular Filt Rate 41; Glucose 116 mg/dL (65-110); Potassium 3.9 mmol/L (3.4-5.0); Sodium 144 mmol/L (137-145)
[2023-12-08 18:21] LABS: Troponin I 0.062 ng/mL (0.000-0.034)
[2023-12-08] MEDS: PIPERACILLIN/TAZ 2.25G/NS 50ML 2.25 GM/50 ML BAG IVPB (18:35)
[2023-12-08] MEDS: SODIUM CHLORIDE 0.9% IV 1,000 ML 100 ML IV CONT (18:35)
[2023-12-08 18:40] LABS: Glucose Point of Care 105 mg/dl (65-105)
[2023-12-08] MEDS: HEPARIN SODIUM 5,000 UNITS/ML VIAL 5000 UNITS SUB-Q (21:21)
[2023-12-08] MEDS: LATANOPROST 0.005% OP SOLN 2.5 ML BTL 1 DROP EACH EYE (21:22)
[2023-12-08] MEDS: DICYCLOMINE HCL 10 MG CAPSULE 20 MG PO (22:57)
[2023-12-09] VITALS (17 sets, daily range): BP systolic 124–135; BP diastolic 58–78; PULSE 63–90; RESP 16–20; TEMP 36.4–36.7; O2SAT 94–100
--- NOTE | 2023-12-09 | ECHO_ITS ---
Patient Info Name: Audie Ruiz Age: 88 years : 1935 Gender: Male Ht: 73 in Wt: 154 lbs BSA: 1.89 m2 HR: 70 bpm BP: 132 / 58 mmHg Technical Quality: Good Exam Date: 12/09/2023 8:07 AM Exam Location: Echo Lab Patient Status: Inpatient Admit Date: 12/07/2023 Staff Ordering Physician: Juice Mcbride MD [employer] Specialty: Salazar Solano RDCS Attending Provider: Eleanor Chauhan DO Exam Type: CA echo doppler color flow Study Info Indications - Afib Complete two-dimensional, color flow and Doppler transthoracic echocardiogram is performed. Summary 1. Complete two-dimensional, color flow and Doppler transthoracic echocardiogram is performed. 2. Left ventricular chamber dimension is normal. 3. Ventricular septum is sigmoid shaped. No resting LVOT obstruction. 4. Left ventricular systolic function is normal, estimated at 65-70%. 5. The left ventricular diastolic function is grade I diastolic dysfunction. 6. E/e' 7 is not elevated. 7. Left atrial chamber dimension is mildly enlarged. 8. Right atrial chamber dimension is mildly enlarged. 9. There is mild aortic valve sclerosis. 10. There is mild tricuspid valve regurgitation. 11. No pulmonary hypertension, estimated pulmonary arterial systolic pressure is 37 mmHg. Left Ventricle E/e' 7 is not elevated. Ventricular septum is sigmoid shaped. No resting LVOT obstruction. Left ventricular chamber dimension is normal. Left ventricular systolic function is normal, estimated at 65-70%. The left ventricular diastolic function is grade I diastolic dysfunction. Right Ventricle Right ventricular systolic function is normal and with normal TAPSE 2.6 cm. Right ventricular chamber dimension is normal. Left Atria Left atrial chamber dimension is mildly enlarged. Right Atria Right atrial chamber dimension is mildly enlarged. Aortic Valve The aortic valve is trileaflet. There is mild aortic valve sclerosis. There is no aortic valve stenosis. There is no aortic valve regurgitation. Pulmonic Valve There is no pulmonic regurgitation. Mitral Valve There is no mitral valve stenosis. There is no mitral valve regurgitation. Tricuspid Valve There is mild tricuspid valve regurgitation. No pulmonary hypertension, estimated pulmonary arterial systolic pressure is 37 mmHg. Pericardium/Pleural There is no pericardial effusion. Aorta The aortic root size at the sinus of Valsalva is normal. Left Ventricular Outflow Tract Name Value Normal LVOT 2D LVOT Diameter 2.1 cm LVOT Doppler LVOT Peak Gradient 11 mmHg LVOT Mean Gradient 5 mmHg LVOT VTI 35 cm LVOT VTI/AV VTI Ratio 0.9 LVOT Stroke Volume 122 ml LVOT CO 8.5 l/min LVOT CI 4.5 l/min/m2 Pulmonic Valve Name Value Normal PV Doppler PV Peak Gradient
[2023-12-09] MEDS: dilTIAZem HCL 30 MG TABLET PO ×4 (00:43→17:18)
[2023-12-09] MEDS: PIPERACILLIN/TAZ 2.25G/NS 50ML 2.25 GM/50 ML BAG IVPB ×4 (00:43→17:18)
[2023-12-09 04:22] LABS: Basophils Percent Auto 0.4 % (0.2-1.2); Eosinophils Percent Auto 0.2 % (0-4.4); Hematocrit 31.6 % (42.0-52.0); Immature Granulocyte Absolute 0.02 K/mm3 (0.00-0.031); Immature Granulocyte Percent A 0.2 % (0-0.5); Lymphocytes Absolute Auto 2.36 K/mm3 (0.9-3.2); Lymphocytes Percent Auto 28.4 % (18.3-44.2); Mean Corpuscular HGB Conc 31.6 g/dl (32-36); Mean Corpuscular Hemoglobin 30.5 pg (26-34); Mean Corpuscular Volume 96.3 fl (80-100); Mean Platelet Volume 10.5 fl (7.4-10.4); Monocytes Absolute Auto 0.9 K/mm3 (0.1-0.6); Neutrophils Percent Auto 59.8 % (45.5-73.1); Platelet Count Result 210 k/mm3 (150-375); Red Blood Count 3.28 M/mm3 (4.6-6.20); Red Cell Distribution Width 15.7 % (11.5-14.5); White Blood Count 8.3 K/mm3 (4.5-10.0)
[2023-12-09 04:34] LABS: Alanine Aminotransferase 15 U/L (6-50); Albumin Level 3.2 g/dL (3.5-5.1); Alkaline Phosphatase 49 U/L (38-126); Anion Gap 7 mmol/L (4-12); Aspartate Amino Transferase 30 U/L (17-59); Bilirubin,Total 1.4 mg/dL (0.2-1.3); Blood Urea Nitrogen 50 mg/dL (9-20); Calcium 7.7 mg/dL (8.4-10.2); Carbon Dioxide 31 mmol/L (22-30); Chloride 105 mmol/L (98-107); Estimated CRCL calculation 28 ml/min; Estimated Glomerular Filt Rate 47; Glucose 100 mg/dL (65-110); Magnesium 2.4 mg/dL (1.6-2.3); Potassium 3.4 mmol/L (3.4-5.0); Sodium 143 mmol/L (137-145)
[2023-12-09] MEDS: HEPARIN SODIUM 5,000 UNITS/ML VIAL 5000 UNITS SUB-Q ×3 (06:35→22:20)
[2023-12-09] MEDS: PANTOPRAZOLE SODIUM IV 40 MG VIAL IV PUSH ×2 (08:10→20:38)
[2023-12-09] MEDS: SODIUM CHLORIDE 0.9% IV 1,000 ML 100 ML IV CONT ×2 (08:36→18:59)
--- NOTE | 2023-12-09 08:57 | PM.PNGS ---
Progress Note: A&P Assessment and Plan (1) Small bowel obstruction: Code(s): K56.609 - Unspecified intestinal obstruction, unspecified as to partial versus complete obstruction Status: Acute Assessment and Plan: doing well, ADAT, encourage OOB Subjective Subjective Date/Time Seen: 12/09/23 08:57 Interval history: feels pretty good, no pain, no N/V, monalisa FLD, +flatus Review of Systems Review of Systems: All systems reviewed & are unremarkable except as noted in HPI and below Exam Const: General: cooperative, comfortable and no acute distress Resp: Auscultation: clear to auscultation bilaterally Cardio: Rate: regular rate Rhythm: regular rhythm GI: Inspection: normal to inspection and non-distended GI Palp: No abdominal tenderness and Yes Soft to palpation Objective Data Vital Signs Vital Signs: Vital Signs - 24 hr 12/08/23 10:02 12/08/23 11:45 12/08/23 12:00 Temperature 36.9 C Pulse Rate 93 87 86 Respiratory Rate 20 Blood Pressure 117/69 Pulse Oximetry 96 Oxygen Delivery 12/08/23 14:00 12/08/23 15:00 12/08/23 17:00 Temperature 36.6 C Pulse Rate 85 80 76 Respiratory Rate 20 Blood Pressure 122/65 Pulse Oximetry 93 Oxygen Delivery 12/08/23 16:00 12/08/23 12:00 12/08/23 16:00 Temperature Pulse Rate 94 Respiratory Rate Blood Pressure Pulse Oximetry Oxygen Delivery Room Air Room Air 12/08/23 18:00 12/08/23 20:16 12/08/23 20:00 Temperature 36.6 C Pulse Rate 84 88 85 Respiratory Rate 20 Blood Pressure 120/62 Pulse Oximetry 93 Oxygen Delivery 12/08/23 22:00 12/08/23 23:25 12/09/23 00:00 Temperature 36.6 C Pulse Rate 93 84 90 Respiratory Rate 20 Blood Pressure 114/58 L Pulse Oximetry 94 Oxygen Delivery 12/09/23 02:00 12/09/23 03:58 12/09/23 04:00 Temperature 36.6 C Pulse Rate 76 73 90 Respiratory Rate 18 Blood Pressure 124/64 Pulse Oximetry 94 Oxygen Delivery 12/09/23 06:00 12/09/23 06:49 Temperature 36.6 C Pulse Rate 76 70 Respiratory Rate 18 Blood Pressure 132/58 L Pulse Oximetry 95 Oxygen Delivery Intake/Output Intake/Output: Intake & Output 12/06/23 12/07/23 12/08/23 12/09/23 23:59 23:59 23:59 23:59 Intake Total 2350 2073.2 1750 Output Total 3300 550 200 Balance -950 1523.2 1550 Meds/Results Medications: Active Medications Generic Name Dose Route Start Last Admin Trade Name Freq PRN Reason Stop Dose Admin Dicyclomine HCl 20 mg 12/08/23 21:59 12/08/23 22:57 Dicyclomine Hcl 10 Mg Capsule PO 20 mg QID PRN Administration Abdominal Cramping Diltiazem HCl 30 mg 12/08/23 15:45 12/09/23 06:35 Diltiazem Hcl 30 Mg Tablet PO 30 mg Q6HR VANESSA Administration Heparin Sodium (Porcine) 5,000 units 12/08/23 22:00 12/09/23 06:35 Heparin Sodium 5,000 Units/Ml Vial SUB-Q 5,000 units Q8HR VANESSA Administration Sodium Chloride 1,000 mls @ 100 mls/hr 12/07/23 04:35 12/09/23 08:36 Normal Saline Iv IV CONT 100 mls/hr .Q10H VANESSA Administration Piperacillin Sod/Tazobactam Sod 2.25 gm in 50 mls @ 100 mls/hr 12/08/23 18:00 12/09/23 07:04 Zosyn 2.25 Gm/Ns 50 Ml IVPB Infused Q6HR VANESSA Infusion Latanoprost 1 drop 12/08/23 21:00 12/08/23 21:22 Latanoprost 0.005% Op Soln 2.5 Ml Btl EACH EYE 1 drop HS VANESSA Administration Morphine Sulfate 2 mg 12/07/23 04:35 12/07/23 17:45 Morphine Sulfate (*Crx) 2 Mg/Ml Inj IV PUSH 2 mg Q2H PRN Administration Pain Rated 7-10 Ondansetron HCl 4 mg 12/07/23 04:35 12/07/23 17:46 Ondansetron Inj 4 Mg/2 Ml Vial IV PUSH 4 mg Q4H PRN Administration Nausea Pantoprazole Sodium 40 mg 12/07/23 21:00 12/09/23 08:10 Pantoprazole Sodium Iv 40 Mg Vial IV PUSH 40 mg Q12HR VANESSA Administration Perflutren Lipid Microsphere 0 ml 12/08/23 17:12 Perflutren Lipid Microspheres 1.5 Ml Vial Diluted To 10 Ml Total Volume IV PUSH 12/11/23 17:12 O
--- NOTE | 2023-12-09 11:21 | PM.IMPN ---
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 Associated vomiting. History of bowel obstruction x3. Multiple previous abdominal surgeries. 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 -2015 he had 2 surgeries at [place] and 2017 [facility] and in 2019 he had for EXPLORATORY LAPAROTOMY with massive intra-abdominal enterolysis, release of small-bowel obstruction by Dr. Archer. CT scan of the abdomen and pelvis shows small-bowel obstruction with possible transition point in the midabdomen, multiple ground-glass nodules in the right middle lobe and packets disease diffusely involving the left pelvic bone. General surgery consulted. NG tube has been placed. NG clamped today passing flatus. New onset AFib with RVR overnight was started on diltiazem drip. Already converted to sinus rhythm. History of proximal atrial fibrillation following exploratory laparotomy in 2019 Electrolytes are all okay. Check TSH. Will transition to oral Cardizem. Due to brief episode will not continue anticoagulation. echo pending. Chest Vasc score is 3 if remains recurrent Multiple small ground-glass nodules in right middle lobe suggest infectious inflammatory process could be aspiration .s tared on zosyn BRIE check renal ultrasound continue IV hydration continue IV hydration. cr slowly imporving on ivf. continue same. Troponin mildly elevated recheck downtrending. likely due to brie Hypertension Hyperlipidemia History of dementia DVT prophylaxis start heparin subQ Subjective Date/time seen: 12/09/23 11:21 Interval history: ng removed. on full iquid diet. heart rate stable and remains on sinus rhythm. no nausea, vomiting. passing gas, but no bm Review of Systems Review of Systems: All systems reviewed & are unremarkable except as noted in HPI and below Exam Narrative: GENERAL: Well-appearing, well-nourished, and in no acute distress. HEAD: Normocephalic, atraumatic. EYES: PERRLA and EOMI. ENT: Nares clear, no rhinorrhea or epistaxis. Mucous membranes moist. NECK: Supple. CHEST: Clear to auscultation. No respiratory distress. HEART: Regular rate and rhythm. No murmur heard. Normal peripheral pulses. ABDOMEN: Soft, soft nontender, nondistended, normal active bowel sounds. EXTREMITIES: Normal range of motion. No edema. SKIN: Warm, dry, no rash. NEURO: No focal deficits. Alert and oriented x3. PSYCH: Normal mood and affect. Objective Data Vital Signs Vital Signs: Vital Signs - 24 hr 12/08/23 11:45 12/08/23 12:00 12/08/23 14:00 Temperature 98.5 F Pulse Rate 87 86 85 Respiratory Rate 20 Blood Pressure 117/69 Pulse Oximetry 96 Oxygen Delivery 12/08/23 15:00 12/08/23 17:00 12/08/23 16:00 Temperature 97.8 F Pulse Rate 80 76 94 Respiratory Rate 20 Blood Pressure 122/65 Pulse Oximetry 93 Oxygen Delivery 12/08/23 12:00 12/08/23 16:00 12/08/23 18:00 Temperature Pulse Rate 84 Respiratory Rate Blood Pressure Pulse Oximetry Oxygen Delivery Room Air Room Air 12/08/23 20:16 12/08/23 20:00 12/08/23 22:00 Temperature 97.8 F Pulse Rate 88 85 93 Respiratory Rate 20 Blood Pressure 120/62 Pulse Oximetry 93 Oxygen Delivery 12/08/23 23:25 12/09/23 00:00 12/09/23 02:00 Temperature 97.8 F Pulse Rate 84 90 76 Respiratory Rate 20 Blood Pressure 114/58 L Pulse Oximetry 94 Oxygen Delivery 12/09/23 03:58
--- NOTE | 2023-12-09 13:25 | PC.NURSE ---
Received from IMU via wheelchair/ Family at bedside.
--- NOTE | 2023-12-09 13:35 | PC.NURSE ---
This patient, Audie Ruiz, was transferred to [[id number] ] on 12/09/23 at 1325. Personal belongings sent with patient. Report given to RN. Appropriate documentation sent with patient.
[2023-12-09 17:22] LABS: Add Urine Microscopic? YES; Appearance Urine Clear (Clear); Bacteria Urine None Seen /hpf; Bilirubin Urine Negative (Negative); Blood Urine Negative (Negative); Color Urine Yellow (Yellow); Glucose Urine UA Negative (Negative); Ketones Urine 1+ mg/dL (Negative); Leukocyte Esterase Ur Negative LEU/UL (Negative); Nitrate Urine Negative (Negative); Non Pathogenic Casts 0-2; Protein Urine 1+ mg/dL (Negative); RBC Urine 0-2 /hpf (0-2); Specific Grav Ur 1.027 (1.001-1.035); Squamous Epithelial Cell Urine None Seen /hpf (Few); WBC Urine 0-5 /hpf (0-3); pH Urine 7.5 (5.0-9.0)
[2023-12-09 17:27] LABS: Glucose Point of Care 86 mg/dl (65-105)
[2023-12-09 17:27] LABS: Creatinine Urine 159.7 mg/dL
[2023-12-09 17:39] LABS: Sodium Urine Random 143 meq/L
[2023-12-09] MEDS: LATANOPROST 0.005% OP SOLN 2.5 ML BTL 1 DROP EACH EYE (20:38)
[2023-12-10] VITALS (9 sets, daily range): BP systolic 116–153; BP diastolic 56–76; PULSE 57–66; RESP 18; TEMP 36.2–37.1; O2SAT 96–100
[2023-12-10] MEDS: dilTIAZem HCL 30 MG TABLET PO ×3 (00:37→13:30)
[2023-12-10] MEDS: PIPERACILLIN/TAZ 2.25G/NS 50ML 2.25 GM/50 ML BAG IVPB ×2 (00:37→05:26)
[2023-12-10 04:56] LABS: Basophils Percent Auto 0.5 % (0.2-1.2); Eosinophils Absolute Auto 0.1 K/mm3 (0-0.3); Eosinophils Percent Auto 1.2 % (0-4.4); Hemoglobin 8.5 g/dL (14.0-18.0); Immature Granulocyte Absolute 0.02 K/mm3 (0.00-0.031); Immature Granulocyte Percent A 0.3 % (0-0.5); Lymphocytes Absolute Auto 2.53 K/mm3 (0.9-3.2); Lymphocytes Percent Auto 34.7 % (18.3-44.2); Mean Corpuscular HGB Conc 31.5 g/dl (32-36); Mean Corpuscular Hemoglobin 30.8 pg (26-34); Mean Corpuscular Volume 97.8 fl (80-100); Mean Platelet Volume 10.6 fl (7.4-10.4); Monocytes Absolute Auto 0.8 K/mm3 (0.1-0.6); Monocytes Percent Auto 10.8 % (2.6-8.5); Neutrophils Absolute Auto 3.8 K/mm3 (1.3-6.7); Neutrophils Percent Auto 52.5 % (45.5-73.1); Platelet Count Result 189 k/mm3 (150-375); Red Blood Count 2.76 M/mm3 (4.6-6.20); Red Cell Distribution Width 15.5 % (11.5-14.5); White Blood Count 7.3 K/mm3 (4.5-10.0)
[2023-12-10 05:19] LABS: Alanine Aminotransferase 13 U/L (6-50); Albumin Level 2.8 g/dL (3.5-5.1); Alkaline Phosphatase 44 U/L (38-126); Anion Gap 7 mmol/L (4-12); Aspartate Amino Transferase 30 U/L (17-59); Blood Urea Nitrogen 36 mg/dL (9-20); Calcium 7.6 mg/dL (8.4-10.2); Carbon Dioxide 28 mmol/L (22-30); Chloride 105 mmol/L (98-107); Estimated CRCL calculation 34 ml/min; Estimated Glomerular Filt Rate 58; Glucose 82 mg/dL (65-110); Magnesium 2.3 mg/dL (1.6-2.3); Potassium 3.2 mmol/L (3.4-5.0); Sodium 140 mmol/L (137-145)
[2023-12-10] MEDS: SODIUM CHLORIDE 0.9% IV 1,000 ML 100 ML IV CONT (05:26)
[2023-12-10] MEDS: HEPARIN SODIUM 5,000 UNITS/ML VIAL 5000 UNITS SUB-Q ×3 (05:30→22:09)
--- NOTE | 2023-12-10 08:00 | PM.PNGS ---
Progress Note: A&P Assessment and Plan (1) Small bowel obstruction: Code(s): K56.609 - Unspecified intestinal obstruction, unspecified as to partial versus complete obstruction Status: Acute Assessment and Plan: resolved, cont diet, small, frequent meals, ok to dc home from surgical standpoint Subjective Subjective Date/Time Seen: 12/10/23 08:00 Interval history: feels good, monalisa diet, +bowel fxn, wants to go home Review of Systems Review of Systems: All systems reviewed & are unremarkable except as noted in HPI and below Exam Const: General: cooperative, comfortable and no acute distress Resp: Auscultation: clear to auscultation bilaterally Cardio: Rate: regular rate Rhythm: regular rhythm GI: Inspection: normal to inspection and non-distended GI Palp: No abdominal tenderness, Yes Soft to palpation, No Tenderness to palpation present (GI) and No Guarding due to palpation present (GI) Objective Data Vital Signs Vital Signs: Vital Signs - 24 hr 12/09/23 10:00 12/09/23 11:50 12/09/23 12:00 Temperature 36.4 C L Pulse Rate 79 66 63 Respiratory Rate 20 Blood Pressure 130/66 Pulse Oximetry 100 Oxygen Delivery 12/09/23 13:42 12/09/23 14:00 12/09/23 13:30 Temperature 36.7 C Pulse Rate 67 67 Respiratory Rate 16 16 16 Blood Pressure 135/78 Pulse Oximetry 99 99 99 Oxygen Delivery Room Air 12/09/23 16:04 12/09/23 22:30 12/09/23 20:00 Temperature 36.6 C Pulse Rate 71 67 68 Respiratory Rate 20 Blood Pressure 128/71 Pulse Oximetry 100 Oxygen Delivery 12/09/23 21:03 12/10/23 00:00 12/10/23 04:00 Temperature Pulse Rate 64 64 Respiratory Rate Blood Pressure Pulse Oximetry 99 Oxygen Delivery Room Air 12/10/23 06:00 Temperature 37.1 C Pulse Rate 62 Respiratory Rate 18 Blood Pressure 116/56 L Pulse Oximetry 96 Oxygen Delivery Intake/Output Intake/Output: Intake & Output 12/07/23 12/08/23 12/09/23 12/10/23 23:59 23:59 23:59 23:59 Intake Total 2350 2073.2 4038.3 1450 Output Total 3300 706 988 9363 Balance -950 1523.2 3088.3 450 Meds/Results Medications: Active Medications Generic Name Dose Route Start Last Admin Trade Name Freq PRN Reason Stop Dose Admin Dicyclomine HCl 20 mg 12/08/23 21:59 12/08/23 22:57 Dicyclomine Hcl 10 Mg Capsule PO 20 mg QID PRN Administration Abdominal Cramping Diltiazem HCl 30 mg 12/08/23 15:45 12/10/23 05:27 Diltiazem Hcl 30 Mg Tablet PO 30 mg Q6HR VANESSA Administration Heparin Sodium (Porcine) 5,000 units 12/08/23 22:00 12/10/23 05:30 Heparin Sodium 5,000 Units/Ml Vial SUB-Q 5,000 units Q8HR VANESSA Administration Sodium Chloride 1,000 mls @ 100 mls/hr 12/07/23 04:35 12/10/23 05:26 Normal Saline Iv IV CONT 100 mls/hr .Q10H VANESSA Administration Piperacillin Sod/Tazobactam Sod 2.25 gm in 50 mls @ 100 mls/hr 12/08/23 18:00 12/10/23 05:26 Zosyn 2.25 Gm/Ns 50 Ml IVPB 100 mls/hr Q6HR VANESSA Administration Latanoprost 1 drop 12/08/23 21:00 12/09/23 20:38 Latanoprost 0.005% Op Soln 2.5 Ml Btl EACH EYE 1 drop HS VANESSA Administration Morphine Sulfate 2 mg 12/07/23 04:35 12/07/23 17:45 Morphine Sulfate (*Crx) 2 Mg/Ml Inj IV PUSH 2 mg Q2H PRN Administration Pain Rated 7-10 Ondansetron HCl 4 mg 12/07/23 04:35 12/07/23 17:46 Ondansetron Inj 4 Mg/2 Ml Vial IV PUSH 4 mg Q4H PRN Administration Nausea Pantoprazole Sodium 40 mg 12/07/23 21:00 12/09/23 20:38 Pantoprazole Sodium Iv 40 Mg Vial IV PUSH 40 mg Q12HR VANESSA Administration Perflutren Lipid Microsphere 0 ml 12/08/23 17:12 Perflutren Lipid Microspheres 1.5 Ml Vial Diluted To 10 Ml Total Volume IV PUSH 12/11/23 17:12 ONCE PRN adequate visualization Protocol Radiology Results: ITS Impressions Abdomen/Pelvis CT 12/07/23 05:41 Impression: Small bowel obstruction, probable transition point as detailed above.
[2023-12-10 08:30] LABS: Glucose Point of Care 80 mg/dl (65-105)
[2023-12-10] MEDS: PANTOPRAZOLE SODIUM IV 40 MG VIAL IV PUSH ×2 (08:51→20:27)
[2023-12-10 12:19] LABS: Glucose Point of Care 80 mg/dl (65-105)
--- NOTE | 2023-12-10 12:55 | PM.IMPN ---
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 Associated vomiting. History of bowel obstruction x3. Multiple previous abdominal surgeries. 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 -2015 he had 2 surgeries at [place] and 2017 he was [facility] and in 2019 he had for EXPLORATORY LAPAROTOMY with massive intra-abdominal enterolysis, release of small-bowel obstruction by Dr. Archer. CT scan of the abdomen and pelvis shows small-bowel obstruction with possible transition point in the midabdomen, multiple ground-glass nodules in the right middle lobe and packets disease diffusely involving the left pelvic bone. General surgery consulted. NG tube has been placed. NG clamped today passing flatus. New onset AFib with RVR overnight was started on diltiazem drip. Already converted to sinus rhythm. History of proximal atrial fibrillation following exploratory laparotomy in 2019 Electrolytes are all okay. Check TSH. Will transition to oral Cardizem. Due to brief episode will not continue anticoagulation. echo pending. Chest Vasc score is 3 if remains recurrent Multiple small ground-glass nodules in right middle lobe suggest infectious inflammatory process could be aspiration . Started on zosyn. WBC count normalizes. Will switch antibiotics to oral BRIE check renal ultrasound continue IV hydration continue IV hydration. cr slowly imporving on ivf. continue same. Will stop IV fluid Troponin mildly elevated recheck downtrending. likely due to brie Hypertension Hyperlipidemia History of dementia DVT prophylaxis start heparin subQ Subjective Date/time seen: 12/10/23 12:55 Interval history: Feels good. No new complaints. Has not had a bowel movement yet. Having flatus tolerating diet but does not like the food here Review of Systems Review of Systems: All systems reviewed & are unremarkable except as noted in HPI and below Exam Narrative: GENERAL: Well-appearing, well-nourished, and in no acute distress. HEAD: Normocephalic, atraumatic. EYES: PERRLA and EOMI. ENT: Nares clear, no rhinorrhea or epistaxis. Mucous membranes moist. NECK: Supple. CHEST: Clear to auscultation. No respiratory distress. HEART: Regular rate and rhythm. No murmur heard. Normal peripheral pulses. ABDOMEN: Soft, soft nontender, nondistended, normal active bowel sounds. EXTREMITIES: Normal range of motion. No edema. SKIN: Warm, dry, no rash. NEURO: No focal deficits. Alert and oriented x3. PSYCH: Normal mood and affect. Objective Data Vital Signs Vital Signs: Vital Signs - 24 hr 12/09/23 13:42 12/09/23 14:00 12/09/23 13:30 Temperature 98.0 F Pulse Rate 67 67 Respiratory Rate 16 16 16 Blood Pressure 135/78 Pulse Oximetry 99 99 99 Oxygen Delivery Room Air 12/09/23 16:04 12/09/23 22:30 12/09/23 20:00 Temperature 97.8 F Pulse Rate 71 67 68 Respiratory Rate 20 Blood Pressure 128/71 Pulse Oximetry 100 Oxygen Delivery 12/09/23 21:03 12/10/23 00:00 12/10/23 04:00 Temperature Pulse Rate 64 64 Respiratory Rate Blood Pressure Pulse Oximetry 99 Oxygen Delivery Room Air 12/10/23 06:00 Temperature 98.8 F Pulse Rate 62 Respiratory Rate 18 Blood Pressure 116/56 L Pulse Oximetry 96 Oxygen Delivery Intake/Output Intake/Output: Intake & Output 12/07/23 12/08/23 12/09/23 12/10/23 23:59 23:59 23:59 23:59 Intake Total 2350 2073.2 4038.3 1570 Outp
[2023-12-10] MEDS: polyethylene glycoL 3350 17 GM POWD.PACK PO (14:07)
[2023-12-10] MEDS: POTASSIUM CHLORIDE 20 MEQ ER TABLET 40 MEQ PO (14:07)
[2023-12-10 17:18] LABS: Glucose Point of Care 92 mg/dl (65-105)
[2023-12-10] MEDS: AMOXICILLIN/CLAVULANATE K 875-125 MG TAB 1 TABLET PO (20:27)
[2023-12-10] MEDS: LATANOPROST 0.005% OP SOLN 2.5 ML BTL 1 DROP EACH EYE (20:27)
[2023-12-10 20:58] LABS: Glucose Point of Care 88 mg/dl (65-105)
[2023-12-11 00:03] VITALS: PULSE 57
[2023-12-11 04:00] VITALS: PULSE 78
[2023-12-11 05:16] LABS: Basophils Percent Auto 0.4 % (0.2-1.2); Eosinophils Absolute Auto 0.1 K/mm3 (0-0.3); Hematocrit 27.2 % (42.0-52.0); Hemoglobin 8.7 g/dL (14.0-18.0); Immature Granulocyte Absolute 0.02 K/mm3 (0.00-0.031); Immature Granulocyte Percent A 0.4 % (0-0.5); Lymphocytes Absolute Auto 1.73 K/mm3 (0.9-3.2); Lymphocytes Percent Auto 33.7 % (18.3-44.2); Mean Corpuscular Volume 96.8 fl (80-100); Mean Platelet Volume 10.3 fl (7.4-10.4); Monocytes Absolute Auto 0.7 K/mm3 (0.1-0.6); Monocytes Percent Auto 12.8 % (2.6-8.5); Neutrophils Absolute Auto 2.7 K/mm3 (1.3-6.7); Neutrophils Percent Auto 51.7 % (45.5-73.1); Platelet Count Result 182 k/mm3 (150-375); Red Blood Count 2.81 M/mm3 (4.6-6.20); White Blood Count 5.1 K/mm3 (4.5-10.0)
[2023-12-11 05:34] LABS: Alanine Aminotransferase 17 U/L (6-50); Albumin Level 2.9 g/dL (3.5-5.1); Alkaline Phosphatase 41 U/L (38-126); Anion Gap 7 mmol/L (4-12); Aspartate Amino Transferase 36 U/L (17-59); Bilirubin,Total 0.8 mg/dL (0.2-1.3); Blood Urea Nitrogen 28 mg/dL (9-20); Calcium 7.9 mg/dL (8.4-10.2); Carbon Dioxide 24 mmol/L (22-30); Chloride 108 mmol/L (98-107); Estimated CRCL calculation 39 ml/min; Estimated Glomerular Filt Rate > 60; Glucose 80 mg/dL (65-110); Magnesium 2.3 mg/dL (1.6-2.3); Potassium 3.4 mmol/L (3.4-5.0); Sodium 139 mmol/L (137-145)
[2023-12-11 06:00] VITALS: BP 160/76; PULSE 57; RESP 18; TEMP 36.6; O2SAT 98
[2023-12-11 07:52] LABS: Glucose Point of Care 82 mg/dl (65-105)
[2023-12-11 08:00] VITALS: PULSE 59
--- NOTE | 2023-12-11 09:34 | PM.DS ---
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 Associated vomiting. History of bowel obstruction x3. Multiple previous abdominal surgeries. 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 -2014 he had 2 surgeries at [place] and 2017 he was transferred [facility] and in 2019 he had for EXPLORATORY LAPAROTOMY with massive intra-abdominal enterolysis, release of small-bowel obstruction by Dr. Archer. CT scan of the abdomen and pelvis shows small-bowel obstruction with possible transition point in the midabdomen, multiple ground-glass nodules in the right middle lobe and packets disease diffusely involving the left pelvic bone. General surgery consulted. NG tube has been placed. Symptoms resolved NG tube was removed and started on a diet which he tolerated well. He started having bowel movement as well. New onset AFib with RVR overnight 12/08/2023. He was started on diltiazem drip. Subsequently converted to sinus rhythm spontaneously. History of paroxysmal atrial fibrillation following exploratory laparotomy in 2019 as well. Electrolytes are all okay. TSH normal. Cardizem drip was transition to oral however late to bradycardia and hence held. He remained in sinus rhythm throughout the admission. Due to brief episode will not continue anticoagulation. echo with grade 1 diastolic dysfunction. Multiple small ground-glass nodules in right middle lobe suggest infectious inflammatory process could be aspiration . Started on zosyn. WBC count normalizes. Will switch antibiotics to oral and will finish the course as an outpatient basis BRIE renal ultrasound with no hydronephrosis was treated with IV hydration. BRIE resolved by the time of discharge Anemia mild to moderate with some drop during the hospital stay however no signs of bleeding. Could be dilutional due to IV fluid. Also has renal dysfunction. Continue to monitor as an outpatient basis. Troponin mildly elevated recheck downtrending. likely due to brie Paget's disease follow-up as an outpatient basis Hypertension Hyperlipidemia History of dementia DVT prophylaxis heparin subQ Time Spent with Patient Time attestation: Total time spent providing and/or coordinating discharge services: 40 minutes Exam Narrative: GENERAL: Well-appearing, well-nourished, and in no acute distress. HEAD: Normocephalic, atraumatic. EYES: PERRLA and EOMI. ENT: Nares clear, no rhinorrhea or epistaxis. Mucous membranes moist. NECK: Supple. CHEST: Clear to auscultation. No respiratory distress. HEART: Regular rate and rhythm. No murmur heard. Normal peripheral pulses. ABDOMEN: Soft, soft nontender, nondistended, normal active bowel sounds. EXTREMITIES: Normal range of motion. No edema. SKIN: Warm, dry, no rash. NEURO: No focal deficits. Alert and oriented x3. PSYCH: Normal mood and affect. DS: Data Data Completed and Pending Completed studies during hospitalization: Exam Type: CA echo doppler color flow Study Info Indications - Afib Complete two-dimensional, color flow and Doppler transthoracic echocardiogram is performed. Summary 1. Complete two-dimensional, color flow and Doppler transthoracic echocardiogram is performed. 2. Left ventricular chamber dimension is normal. 3. Ve
[2023-12-11] MEDS: AMOXICILLIN/CLAVULANATE K 875-125 MG TAB 1 TABLET PO (09:37)
[2023-12-11] MEDS: PANTOPRAZOLE SODIUM IV 40 MG VIAL IV PUSH (09:37)
--- NOTE | 2023-12-11 11:00 | PM.PNGS ---
Progress Note: A&P Assessment and Plan (1) Small bowel obstruction: Code(s): K56.609 - Unspecified intestinal obstruction, unspecified as to partial versus complete obstruction Status: Acute Assessment and Plan: resolved, exam benign, +bowel fxn, ok to dc home, f/u prn Subjective Subjective Date/Time Seen: 12/11/23 11:00 Interval history: Pt is doing well, having bowel fxn, monalisa diet Review of Systems Review of Systems: All systems reviewed & are unremarkable except as noted in HPI and below Exam Const: General: cooperative, comfortable and no acute distress Resp: Auscultation: clear to auscultation bilaterally Cardio: Rate: regular rate Rhythm: regular rhythm GI: Inspection: normal to inspection and non-distended GI Palp: No abdominal tenderness and Yes Soft to palpation Objective Data Vital Signs Vital Signs: Vital Signs - 24 hr 12/10/23 14:00 12/10/23 12:00 12/10/23 16:00 Temperature 36.2 C L Pulse Rate 66 59 L 57 L Respiratory Rate 18 Blood Pressure 143/73 H Pulse Oximetry 100 Oxygen Delivery Fraction of Inspired Oxygen 12/10/23 20:50 12/10/23 20:25 12/10/23 20:00 Temperature 36.4 C L Pulse Rate 57 L 58 L Respiratory Rate 18 Blood Pressure 153/76 H Pulse Oximetry 99 Oxygen Delivery Room Air Fraction of Inspired Oxygen 21 12/11/23 00:03 12/11/23 04:00 12/11/23 06:00 Temperature 36.6 C Pulse Rate 57 L 78 57 L Respiratory Rate 18 Blood Pressure 160/76 H Pulse Oximetry 98 Oxygen Delivery Fraction of Inspired Oxygen 12/11/23 08:00 Temperature Pulse Rate 59 L Respiratory Rate Blood Pressure Pulse Oximetry Oxygen Delivery Fraction of Inspired Oxygen Intake/Output Intake/Output: Intake & Output 12/08/23 12/09/23 12/10/23 12/11/23 23:59 23:59 23:59 23:59 Intake Total 2073.2 4038.3 2300 460 Output Total 386 046 9323 500 Balance 1523.2 3088.3 900 -40 Meds/Results Medications: Active Medications Generic Name Dose Route Start Last Admin Trade Name Freq PRN Reason Stop Dose Admin Amoxicillin/Clavulanate Potassium 1 tablet 12/10/23 21:00 12/11/23 09:37 Amoxicillin/Clavulanate K 875-125 Mg Tab PO 1 tablet Q12HR VANESSA Administration Dicyclomine HCl 20 mg 12/08/23 21:59 12/08/23 22:57 Dicyclomine Hcl 10 Mg Capsule PO 20 mg QID PRN Administration Abdominal Cramping Diltiazem HCl 30 mg 12/08/23 15:45 12/10/23 19:08 Diltiazem Hcl 30 Mg Tablet PO Not Given Q6HR VANESSA Heparin Sodium (Porcine) 5,000 units 12/08/23 22:00 12/11/23 05:57 Heparin Sodium 5,000 Units/Ml Vial SUB-Q Not Given Q8HR VANESSA Latanoprost 1 drop 12/08/23 21:00 12/10/23 20:27 Latanoprost 0.005% Op Soln 2.5 Ml Btl EACH EYE 1 drop HS VANESSA Administration Morphine Sulfate 2 mg 12/07/23 04:35 12/07/23 17:45 Morphine Sulfate (*Crx) 2 Mg/Ml Inj IV PUSH 2 mg Q2H PRN Administration Pain Rated 7-10 Ondansetron HCl 4 mg 12/07/23 04:35 12/07/23 17:46 Ondansetron Inj 4 Mg/2 Ml Vial IV PUSH 4 mg Q4H PRN Administration Nausea Pantoprazole Sodium 40 mg 12/07/23 21:00 12/11/23 09:37 Pantoprazole Sodium Iv 40 Mg Vial IV PUSH 40 mg Q12HR VANESSA Administration Perflutren Lipid Microsphere 0 ml 12/08/23 17:12 Perflutren Lipid Microspheres 1.5 Ml Vial Diluted To 10 Ml Total Volume IV PUSH 12/11/23 17:12 ONCE PRN adequate visualization Protocol Radiology Results: ITS Impressions Abdomen/Pelvis CT 12/07/23 05:41 Impression: Small bowel obstruction, probable transition point as detailed above. Multiple small groundglass nodules in the right middle lobe suggest infectious/inflammatory process. 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 Small Bowel X-Ray 12/07/23 14:00 IMPRESSION: 1. Dilated small bowel without passage of contrast beyond the dilated small bowel by 4 hours, consistent with small bowel obstru
== END 2023-12-11 11:25 | disposition home or self-care (01) | DRG 389 ==
LOC: ANHED 12-07 04:37 → ANH3MEDSUR 12-07 05:51 → ANHIMU 12-08 05:31 → ANH2MED 12-09 13:37
PROVIDERS: General Practice; Internal Medicine; Nurse Practitioner Family; Admitting Provider Internal Medicine; Emergency Provider Emergency Medicine; PCP Physician Assistant; Visit Provider Internal Medicine
DX: K56.609 Unspecified intestinal obstruction, unspecified as to partial versus complete obstruction (principal); N17.9 Acute kidney failure, unspecified; M88.88 Osteitis deformans of other bones; I10 Essential (primary) hypertension; R41.3 Other amnesia; E78.5 Hyperlipidemia, unspecified; F03.90 Unspecified dementia, unspecified severity, without behavioral disturbance, psychotic disturbance, mood disturbance, and anxiety; I48.0 Paroxysmal atrial fibrillation; F17.210 Nicotine dependence, cigarettes, uncomplicated; D64.9 Anemia, unspecified
CPT/HCPCS: 36415; 74018; 74177; 74250; 76775; 80048; 80053; 81001; 81003; 82570; 82948; 83605; 83690; 83735; 84300; 84443; 84484; 85025; 85027; 93005; 93306; 96361; 96374; 96375; 99285; A9270; G0378; J1644; J2270; J2405; J2470; J2543; J7030; Q9967

== ENCOUNTER 2024-07-12 21:11 | Inpatient (IN) | payer MEDICARE, SELFPAY ==
--- NOTE | ~2024-07-12 | CT_ITS ---
CT of the Abdomen and Pelvis: Indication: Bowel obstruction Technique: 2.5 mm axial scans were obtained through the abdomen and pelvis following intravenous adm inistration of 100 cc of Omnipaque 350. Dose reduction technique was used on this scan by utilizing a utomated exposure control and iterative reconstruction technique. The dose-length product (DLP) was 4 94.89 mGy-cm. COMPARISON: 12/07/2023 Findings: Scans through the lung bases are unremarkable. Stable hepatic cysts. The spleen, pancreas, gallbladder, adrenals and kidneys are within normal limit s. There are atherosclerotic calcifications of the aorta and iliac vessels. No lymphadenopathy. There are multiple dilated loops of small bowel. Transition point present in the midabdomen just righ t of midline (axial image 104, sagittal image 69), with decompressed distal small bowel. Prominent st ool throughout large bowel suggests underlying constipation. Images through the pelvis were performed. Urinary bladder unremarkable. No pelvic mass seen. No ascit es. Impression: Small bowel obstruction, with transition point as detailed above. Probable underlying constipation. Reviewed, dictated and finalized at location . Impression: Small bowel obstruction, with transition point as detailed above. Probable underlying constipation.
--- NOTE | ~2024-07-12 | XR_ITS ---
XR chest 1V Ordering provider: Adebayo Martinez MD History: 89 years Male with . vomiting/hx SBO . Comparison: None. FINDINGS: MEDIASTINUM: The cardiac silhouette is not enlarged. LUNGS: No infiltrates, effusions or pneumothorax. OTHER: No free air under the diaphragm. Degenerative changes of the spine. IMPRESSION: No acute cardiopulmonary pathology. Reviewed, dictated and finalized at location A.
--- NOTE | ~2024-07-12 | XR_ITS ---
Upright portable view of the abdomen Clinical history: NG tube placement Findings: NG tube side-port is just above the GE junction. Probable dilated small bowel loops noted. No free air evident. No abnormal mass lesion or calcification is seen. Osseous structures are intact. Impression: NG tube side-port is just above the GE junction. Further advancement the stomach advised. Reviewed, dictated and finalized at location M. Impression: NG tube side-port is just above the GE junction. Further advancement the stomac h advised.
--- NOTE | ~2024-07-12 | XR_ITS ---
Upright portable view of the abdomen Clinical history: NG tube placement Findings: NG tube is curled back upon itself at the level of the GE junction, with tip directed back superiorly at the level of approximately T8. Bowel gas pattern is nonspecific. No evidence for obstru ction or free air. No abnormal mass lesion or calcification is seen. Osseous structures are intact. Impression: NG tube is curled back upon itself at the level of the GE junction with tip directed back superiorly, as above. Repositioning/replacement of the NG tube is required for adequate placement in the stomach . Reviewed, dictated and finalized at location . Impression: NG tube is curled back upon itself at the level of the GE junction with tip dir ected back superiorly, as above. Repositioning/replacement of the NG tube is re quired for adequate placement in the stomach.
[2024-07-12 21:14] VITALS: BP 155/87; PULSE 87; RESP 18; TEMP 36.6; O2SAT 100
[2024-07-12 23:02] LABS: Basophils Absolute Auto 0.1 K/mm3 (0.0-0.1); Basophils Percent Auto 0.3 % (0.2-1.2); Eosinophils Percent Auto 0.1 % (0-4.4); Hematocrit 39.1 % (42.0-52.0); Hemoglobin 12.7 g/dL (14.0-18.0); Immature Granulocyte Absolute 0.08 K/mm3 (0.00-0.031); Immature Granulocyte Percent A 0.4 % (0-0.5); Lymphocytes Absolute Auto 1.51 K/mm3 (0.9-3.2); Lymphocytes Percent Auto 7.6 % (18.3-44.2); Mean Corpuscular HGB Conc 32.5 g/dl (32-36); Mean Corpuscular Hemoglobin 30.6 pg (26-34); Mean Corpuscular Volume 94.2 fl (80-100); Mean Platelet Volume 10.3 fl (7.4-10.4); Monocytes Absolute Auto 1.7 K/mm3 (0.1-0.6); Monocytes Percent Auto 8.5 % (2.6-8.5); Neutrophils Absolute Auto 16.5 K/mm3 (1.3-6.7); Neutrophils Percent Auto 83.1 % (45.5-73.1); Nucleated Red Blood Cells Perc 0.1 % (0.0-0.2); Platelet Count Result 299 k/mm3 (150-375); Red Blood Count 4.15 M/mm3 (4.6-6.20); Red Cell Distribution Width 15.4 % (11.5-14.5); White Blood Count 19.9 K/mm3 (4.5-10.0)
[2024-07-12 23:19] LABS: Lipase 100 U/L (23-300)
[2024-07-12 23:20] LABS: Lactic Acid Reflex 2.3 mmol/L (0.7-2.0)
[2024-07-12 23:21] LABS: Alanine Aminotransferase 20 U/L (6-50); Albumin Level 5.2 g/dL (3.5-5.1); Alkaline Phosphatase 90 U/L (38-126); Anion Gap 14 mmol/L (4-12); Aspartate Amino Transferase 35 U/L (17-59); Bilirubin,Total 1.1 mg/dL (0.2-1.3); Blood Urea Nitrogen 22 mg/dL (9-20); Calcium 10.1 mg/dL (8.4-10.2); Carbon Dioxide 30 mmol/L (22-30); Chloride 98 mmol/L (98-107); Estimated CRCL calculation 35 ml/min; Estimated Glomerular Filt Rate 48; Glucose 145 mg/dL (65-110); Potassium 4.2 mmol/L (3.4-5.0); Sodium 142 mmol/L (137-145)
[2024-07-12 23:40] LABS: Influenza A QL RT-PCR Negative (Negative); Influenza B QL RT-PCR Negative (Negative); RSV RNA, RT-PCR Negative (Negative); SARS-CoV-2 RNA PCR Negative (Negative)
[2024-07-13] VITALS (13 sets, daily range): BP systolic 138–176; BP diastolic 72–107; PULSE 67–130; RESP 17–21; TEMP 36.8–37.4; O2SAT 94–97; BMI 21.2
--- NOTE | 2024-07-13 00:30 | ED_ITS ---
HPI - Abdominal Pain General Chief Complaint: Abdominal Pain Stated Complaint: Abd pain, n/v Time Seen by Provider: 07/12/24 23:33 Source: patient and old records reviewed Mode of arrival: EMS Limitations: no limitations History of Present Illness HPI narrative: Patient is an 89-year-old male who presents the ED via EMS with report of abdominal pain. Patient reports he began having pain around 7:00 p.m. tonight. Pain has been persistent since then. Described as a cramping/bloating. Patient states pain feels similar to his previous bowel obstructions. He has had multiple previous bowel obstructions, most recently per records November 2023. Patient has had 4 previous ex laps. He reports nausea with vomiting. States last bowel movement was yesterday. Typically has a bowel movement every day. Denies fevers. Denies urinary complaints. Related Data Home Medications ?Medication ?Instructions ?Recorded ?Confirmed ?Last Taken ?Type losartan 50 mg tablet 50 mg PO DAILY 12/08/23 06/27/24 Unknown History aspirin 325 mg tablet 325 mg PO DAILY 04/01/24 06/27/24 Unknown History latanoprost 0.005 % eye drops 1 drp EACH EYE QHS 04/01/24 06/27/24 Unknown History Allergies Allergy/AdvReac Type Severity Reaction Status Date / Time No Known Drug Allergies Allergy Unknown Other Verified 06/27/24 11:04 Review of Systems 2 Review of Systems: All systems reviewed & are unremarkable except as noted in HPI. 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 He has smoked as much as a pack of cigarettes per day but has cut down to 1 pack every 2.5 days. He has no interest in quitting smoking. He denies any alcohol use or illicit substance use. 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 He has 1 child. Code status: Full code Surrogate decision maker: Smoking packs per day: 1 Smoking cigarettes per day: 20.0 Years smoked: 70 Smoking pack-years: 70.00 Smoking status: Current every day smoker Tobacco type: cigarettes Second hand tobacco smoke exposure: No Alcohol intake: former Substance use: current Current Housing: Decline to Answer Concerned About Future Housing: Decline to Answer Difficulty Paying Gas/Electric Bills: Decline to Answer Difficulty Paying for Meds: Decline to Answer Currently Unemployed: Decline to Answer Education: Decline to Answer Difficulty w/ Childcare or Family Care: Decline to Answer Gender identity (if verbalized by the patient): Male Sexual Orientation (if Verbalized by the Patient): Straight or Heterosexual Spiritual care concerns: No Agree to blood products: Yes Exam 2 Narrative: GENERAL: Elderly, thin, non-toxic, in no acute distress. HEAD: Normocephalic, atraumatic. RESPIRATORY: Airway patent, respirations nonlabored. Clear to auscultation bilaterally, no rales, rhonchi, wheezing. CARDIOVASCULAR: Regular rate and rhythm without murmurs, rubs, or gallops. ABDOMINAL: Abdomen is somewhat distended appearing, but is still soft. Diffusely tender. Normoactive BS. Large midline surgical scar. MUSCULOSKELETAL: Moves all extremities. No gross deformities. SKIN: Warm, dry, normal color. NEURO: A&O X3. Speech clear. PSYCHIATRIC: Appropriate mood and affect. Normal interaction. Course Vital Signs Vital signs: Vital Signs Temperature 97.8 F 07/12/24 21:14 Pulse Rate 87 07/12/24 21:14 Respiratory Rate 18 07/12/24 21:14 Blood Pressure 155/87 H 07/12/24 21:14 Pulse Oximetry 100 07/12/24 21:14 Oxygen Delivery Room Air 07/12/24 21:14 Temperature 97.8 F 07/12/24 21:14 Pulse Rate 105 H 07/13/24 03:21 Respiratory Rate 17 07/13/24 03:21 Blood Pressure 160/107 H 07/13/24 03:21 Pulse Oximetry 97 07/13/24 03:21 Oxygen Delivery Room Air 07/12/24 21:14 MDM - Abdominal Pain MDM Narrative Medical decision making narrative: Patient presented to ED with abd pain, N/V, hx of previous bowel obstructions which feel similar. Vital signs are stable upon arrival. Patient is distress. Does have diffuse tenderness on exam. CBC with white blood cell count of 19.9. Neutrophil predominance. No bandemia. H&H is stable. Consistent with previous records. CMP with anion gap of 14. Creatinine today 1.4. Appears fairly consistent with previous records. Baseline more around 1.2. Lactic acid is elevated to 2.3. Fluids ongoing. Will continue to trend. Normal LFTs and lipase. Viral swabs are negative. CT abd/pelvis obtained showing high-grade bowel obstruction with obstruction point in the right mid abdomen. Attempted NG tube placement x6 with multiple different nurses, myself, EDP, without success. Patient refusing further NG tube placement. Will discuss with surgery. Discussed with Dr. Awan, general surgery, will consult. Eric started. Will discuss with hospitalist. Discussed with hospitalist, Dr. Chauhan, accepted patient for admission. Patient in agreement with plan and admission. Medical Records Attestation: I reviewed the patient's medical records. Lab Data Attestation: I reviewed the patient's lab results. 07/12/24 22:55 07/12/24 22:55 Labs: Lab Results 07/12/24 Range/Units 22:55 WBC 19.9 H (4.5-10.0) K/mm3 RBC 4.15 L (4.6-6.20) M/mm3 Hgb 12.7 L D (14.0-18.0) g/dL Hct 39.1 L (42.0-52.0) % MCV 94.2 (80-100) fl MCH 30.6 (26-34) pg MCHC 32.5 (32-36) g/dl RDW 15.4 H (11.5-14.5) % Plt Count 299 D (150-375) k/mm3 MPV 10.3 (7.4-10.4) fl Immature Gran % (Auto) 0.4 (0-0.5) % Neut % (Auto) 83.1 H (45.5-73.1) % Lymph % (Auto) 7.6 L (18.3-44.2) % [place] % (Auto) 8.5 (2.6-8.5) % Eos % (Auto) 0.1 (0-4.4) % Baso % (Auto) 0.3 (0.2-1.2) % Lymph # (Auto) 1.51 (0.9-3.2) K/mm3 [place] # (Auto) 1.7 H (0.1-0.6) K/mm3 Eos # (Auto) 0.0 (0-0.3) K/mm3 Baso # (Auto) 0.1 (0.0-0.1) K/mm3 Abs Immat Gran (auto) 0.08 H (0.00-0.031) K/mm3 Absolute Neuts (auto) 16.5 H (1.3-6.7) K/mm3 Absolute Nucleated RBC 0.020 H (0.0-0.012) K/mm3 Nucleated RBC % 0.1 (0.0-0.2) % Sodium 142 (137-145) mmol/L Potassium 4.2 (3.4-5.0) mmol/L Chloride 98 (98-107) mmol/L Carbon Dioxide 30 (22-30) mmol/L Anion Gap 14 H (4-12) mmol/L BUN 22 H (9-20) mg/dL Creatinine 1.40 H (0.7-1.3) mg/dL Estim Creat Clear Calc 35 ml/min Estimated GFR 48 L (59 - ) Glucose 145 H (65-110) mg/dL Lactic Acid 2.3 H (0.7-2.0) mmol/L Calcium 10.1 (8.4-10.2) mg/dL Total Bilirubin 1.1 (0.2-1.3) mg/dL AST 35 (17-59) U/L ALT 20 (6-50) U/L Alkaline Phosphatase 90 (38-126) U/L Total Protein 10.0 H (6.3-8.2) g/dL Albumin 5.2 H (3.5-5.1) g/dL Lipase 100 (23-300) U/L Influenza A (RT-PCR) Negative (Negative) Influenza B (RT-PCR) Negative (Negative) RSV (RT-PCR) Negative (Negative) SARS-CoV-2 RNA (RT-PCR) Negative (Negative) Imaging Data Attestation: I personally reviewed and interpreted this imaging study as follows: Radiologist's impression: ITS Impressions Chest X-Ray 07/12/24 23:24 IMPRESSION: No acute cardiopulmonary pathology. STAT RAD CT abd/pelvis: Cyst in the right hepatic lobe measures 2.7 cm. Cholecystectomy. Dilated small bowel measuring up to 4.2 cm, consistent with high-grade bowel obstruction. The area of obstruction is in the right mid abdomen on coronal images 42-46. Surgical evaluation recommended. Atherosclerotic changes of the aorta. Degenerative changes of the spine. Impression: High-grade bowel obstruction with obstruction point on coronal image 43. Discharge Plan Discharge Clinical Impression: Small bowel obstruction Patient Disposition: Still a Patient Condition: Stable Patient Language: Tanzanian Prescriptions: No Action metoprolol succinate 25 mg tablet extended release 24 hr 25 mg PO DAILY Qty: 30 5RF aspirin 325 mg tablet 325 mg PO DAILY latanoprost 0.005 % drops 1 drp EACH EYE QHS losartan 50 mg tablet 50 mg PO DAILY Follow-up/Referrals: Dada Pierce APRN [Primary Care Provider] -
[2024-07-13 00:59] LABS: Reflex Lactic Acid Yes or No Add Lactic
[2024-07-13] MEDS: MORPHINE SULFATE (*CRX) 4 MG/ML INJ IV PUSH (01:17)
[2024-07-13] MEDS: SODIUM CHLORIDE 0.9% IV 1,000 ML 999 ML IV CONT (01:17)
[2024-07-13] MEDS: ONDANSETRON INJ 4 MG/2 ML VIAL IV PUSH (01:18)
[2024-07-13] MEDS: LIDO 1%/EPINEPHRINE 1:100,000 20 ML VIAL 5 ML INFILTRATE (02:03)
[2024-07-13] MEDS: MIDAZOLAM HCL (*CRX) 2 MG/2 ML VIAL IV PUSH (02:03)
[2024-07-13] MEDS: BENZOCAINE/TETRACAINE SPRAY (*SP) 56 ML AEROSOL 1 SPRAY (02:59)
--- NOTE | 2024-07-13 03:01 | PC.NURSE ---
Addendum entered by Jeanie Camacho RN 07/13/24 03:16: patient unable to tolerate NG insertion*. six attempts at ng tube insertion were attempted by multiple staff members. Original Note: this rn along with laboratory tester, another Rn, Edp dr. chance, and james gillespie at bedside attempting multiple attempts. pt did not tolerate procedure. pt threatening staff, pt pulling at lines, pt refusing to put chin to chest, pt refusing to drink water. james gillespie aware.
[2024-07-13] MEDS: PIPERACILLN/TAZ 3.375GM/NS50ML 3.375 GM/50 ML BAG IVPB (04:16)
[2024-07-13] MEDS: SODIUM CHLORIDE 0.9% IV 1,000 ML 125 ML IV CONT ×3 (04:16→21:36)
[2024-07-13 04:32] LABS: Lactic Acid 1.1 mmol/L (0.7-2.0)
--- NOTE | 2024-07-13 06:22 | ADMGEN ---
This patient, Audie Ruiz, was admitted to Medical Room 341-01. Patient/family oriented to hospital policies and general routines including ID bracelet, bed and alarms, visiting hours, pain management, procedures, bathroom and other care routines, personal items, smoking policy, room service/diet, and visiting hours. Information on how to activate the Rapid Response Team has been discussed. Patient/Family are encouraged to report perceived risks to care and to ask questions if they do not understand what they are told or what they should do.
--- NOTE | 2024-07-13 06:46 | ECG_ITS ---
Test Date: 2024-07-13 06:59:36 Measurements Intervals [place] Rate: 132 P: 49 OR: 152 QRS: 15 QRSD: 89 T: 29 QT: 314 QTc: 466 Interpretive Statements SINUS TACHYCARDIA Electronically Signed On 07-14-2024 13:55:24 CDT by Henry Lyons D.O
[2024-07-13] MEDS: SODIUM CHLORIDE 0.9% IV 2,000 ML 999 ML IV CONT (07:03)
[2024-07-13] MEDS: METOPROLOL TARTRATE INJ 5 MG/5 ML VIAL IV PUSH (07:03)
--- NOTE | 2024-07-13 07:45 | P.HP_ITS ---
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 He states that his vomiting started and then he started experiencing sharp generalized abdominal pain, intermittent progressing to constant in nature with no precipitating cause or alleviating factors. He reports the pain lasts a varying amount of time and can subside without any particular causes. Nothing seems to make the pain better and food tends to make his vomiting worse, although he reports episodes of emesis without food. He states that his nausea/vomiting and abdominal pain feel similar to the previous times in which he had a small bowel obstruction. Reports his last bowel movement was 2 days ago. He denies any chest pain, shortness of breath, fevers, dizziness, LOC, or urinary complaints/changes. In ED, WBC 19.9, Hg 12.7, Hct 39.1, plt 299, Na 142, Cl 98, K 4.2, CO2 30, BUN 22, Cr 1.40, neutrophil predominance, no bandemia, lactic acid 2.3, normal LFTs and lipase, negative viral swabs. Chest x-ray showed No acute cardiopulmonary pathology. CT Abdomen/Pelvis showed Small bowel obstruction, with transition point as detailed above with probable underlying constipation. NG tube placement was attempted x6 in ED without success. Pt refused further placement while in ED. Placement of NG tube was attempted again on med floor again without success. General Surgery has been consulted and will appreciate recommendations for further care. 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 He has smoked as much as a pack of cigarettes per day but has cut down to 1 pack every 2.5 days. He has no interest in quitting smoking. He denies any alcohol use or illicit substance use. 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 He has 1 child. Code status: Full code Surrogate decision maker: Smoking packs per day: 1 Smoking cigarettes per day: 20.0 Years smoked: 70 Smoking pack-years: 70.00 Smoking status: Current every day smoker Tobacco type: cigarettes Second hand tobacco smoke exposure: No Alcohol intake: never Substance use: never Do You Feel Safe in your Home?: Yes Lack of Transportation: No Lack of Food: Never True Current Housing: Decline to Answer Concerned About Future Housing: No Difficulty Paying Gas/Electric Bills: No Difficulty Paying for Meds: No Currently Unemployed: No Education: High School Diploma/GED Difficulty w/ Childcare or Family Care: No Gender identity (if verbalized by the patient): Male Sexual Orientation (if Verbalized by the Patient): Straight or Heterosexual Spiritual care concerns: No Agree to blood products: Yes Meds Home Medications and Allergies Home Medications ?Medication ?Instructions ?Recorded ?Confirmed ?Type losartan 50 mg tablet 50 mg PO DAILY 12/08/23 06/27/24 History metoprolol succinate 25 mg 25 mg PO DAILY #30 tabs 12/28/23 06/27/24 Rx tablet,extended release 24 hr aspirin 325 mg tablet 325 mg PO DAILY 04/01/24 06/27/24 History latanoprost 0.005 % eye drops 1 drp EACH EYE QHS 04/01/24 06/27/24 History Allergies Allergy/AdvReac Type Severity Reaction Status Date / Time No Known Drug Allergies Allergy Unknown Other Verified 06/27/24 11:04 Vital Signs Vital Signs - 24 hr 07/12/24 21:14 07/13/24 00:56 07/13/24 00:58 Temperature 97.8 F Pulse Rate 87 101 H Respiratory Rate 18 21 H Blood Pressure 155/87 H 170/104 H Pulse Oximetry 100 97 Oxygen Delivery Room Air 07/13/24 03:21 07/13/24 04:20 07/13/24 05:48 Temperature Pulse Rate 105 H 106 H 113 H Respiratory Rate 17 17 21 H Blood Pressure 160/107 H 170/105 H 141/91 H Pulse Oximetry 97 94 94 Oxygen Delivery 07/13/24 06:34 07/13/24 06:45 07/13/24 07:03 Temperature 99.3 F Pulse Rate 127 H 130 H Respiratory Rate 20 Blood Pressure 176/106 H Pulse Oximetry 95 Oxygen Delivery Room Air Exam Narrative: Gen - Eldery, ill appearing male in no acute respiratory distress who is nontoxic-appearing lying semi recumbent in bed HEENT - normocephalic. Atraumatic. Pupils equal round and reactive. Extraocular motions intact. Sclera clear and anicteric. Nares patent. Oropharynx was clear. No oral lesions. Moist mucous membranes. Tongue was midline. Palate sivan symmetrically. No facial asymmetry. Neck - neck was supple. No dominant adenopathy, thyromegaly or masses. 2+ carotid upstrokes without bruits. Chest - lungs are clear to auscultation bilaterally. No wheezes or crackles. CV - heart was regular rate and rhythm. S1-S2. No murmurs gallops or rubs. Abd - abdomen was soft, slightly distended, diffusely tender. Positive bowel sounds. No organomegaly or masses. Ext - no clubbing, cyanosis or edema. 2+ DP pulses bilaterally. Neuro - patient is alert and oriented x4. Strength is 5/5 in both upper and lower extremities. Cranial nerves 2-12 are intact. Speech is clear. Psych - normal mood and affect. Patient is pleasant and cooperative. Skin - warm and dry. No rashes noted. H&P: Results Labs Labs: Short CBC 07/12/24 Range/Units 22:55 WBC 19.9 H (4.5-10.0) K/mm3 Hgb 12.7 L D (14.0-18.0) g/dL Hct 39.1 L (42.0-52.0) % Plt Count 299 D (150-375) k/mm3 BMP 07/12/24 22:55 Sodium 142 Potassium 4.2 Chloride 98 Carbon Dioxide 30 BUN 22 H Creatinine 1.40 H Glucose 145 H Calcium 10.1 Liver Function 07/12/24 Range/Units 22:55 Total Bilirubin 1.1 (0.2-1.3) mg/dL AST 35 (17-59) U/L ALT 20 (6-50) U/L Alkaline Phosphatase 90 (38-126) U/L Albumin 5.2 H (3.5-5.1) g/dL Assessment and Plan Assessment and plan (1) Small bowel obstruction: Code(s): K56.609 - Unspecified intestinal obstruction, unspecified as to partial versus complete obstruction Status: Acute Assessment and Plan: - CT Scan: There are multiple dilated loops of small bowel. Transition point present in the midabdomen just right of midline (axial image 104, sagittal image 69), with decompressed distal small bowel. Prominent stool throughout large bowel suggests underlying constipation. - Multiple previous SBOs and abdominal surgeries (2015x2, 2017, 2019) - Monitor I&Os, vital signs, neuro status and patient is a fall risk - Monitor serum electrolytes and CBC - General surgery consulted to further evaluate small bowel obstruction if the patient needs surgical intervention - Place NG tube for non operative management, NG tube to low intermittent suction - Currently NPO, bowel rest, IV Fluids - P.r.n. 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
[2024-07-13 09:26] LABS: Add Urine Microscopic? YES; Appearance Urine Clear (Clear); Bacteria Urine None Seen /hpf; Bilirubin Urine Negative (Negative); Blood Urine Negative (Negative); Color Urine Yellow (Yellow); Glucose Urine UA Negative (Negative); Ketones Urine Trace mg/dL (Negative); Leukocyte Esterase Ur Negative LEU/UL (Negative); Nitrate Urine Negative (Negative); Non Pathogenic Casts 0-2; Protein Urine 1+ mg/dL (Negative); Specific Grav Ur > 1.045 (1.001-1.035); Squamous Epithelial Cell Urine None Seen /hpf (Few); WBC Urine 0-5 /hpf (0-3); pH Urine 8.5 (5.0-9.0)
--- NOTE | 2024-07-13 10:59 | PC.NURSE ---
NGT placed at 1040. XR tech up to obtain KUB. ARIS Husain at bedside to view XR. Looks like NGT is looped above the diaphragm. Attempted to replace, but NGT looped back up through the mouth. ARIS Husain said to let surgery know when they round for further instruction.
[2024-07-13 12:21] LABS: Basophils Absolute Auto 0.1 K/mm3 (0.0-0.1); Basophils Percent Auto 0.2 % (0.2-1.2); Eosinophils Percent Auto 0.2 % (0-4.4); Hematocrit 30.5 % (42.0-52.0); Hemoglobin 9.9 g/dL (14.0-18.0); Immature Granulocyte Absolute 0.07 K/mm3 (0.00-0.031); Immature Granulocyte Percent A 0.3 % (0-0.5); Lymphocytes Absolute Auto 1.03 K/mm3 (0.9-3.2); Lymphocytes Percent Auto 5.1 % (18.3-44.2); Mean Corpuscular HGB Conc 32.5 g/dl (32-36); Mean Corpuscular Hemoglobin 30.6 pg (26-34); Mean Corpuscular Volume 94.1 fl (80-100); Monocytes Absolute Auto 1.2 K/mm3 (0.1-0.6); Monocytes Percent Auto 5.9 % (2.6-8.5); Neutrophils Absolute Auto 17.9 K/mm3 (1.3-6.7); Neutrophils Percent Auto 88.3 % (45.5-73.1); Platelet Count Result 224 k/mm3 (150-375); Red Blood Count 3.24 M/mm3 (4.6-6.20); Red Cell Distribution Width 15.3 % (11.5-14.5); White Blood Count 20.3 K/mm3 (4.5-10.0)
[2024-07-13 12:32] LABS: Alanine Aminotransferase 15 U/L (6-50); Albumin Level 3.4 g/dL (3.5-5.1); Alkaline Phosphatase 55 U/L (38-126); Anion Gap 8 mmol/L (4-12); Aspartate Amino Transferase 26 U/L (17-59); Bilirubin,Total 1.3 mg/dL (0.2-1.3); Blood Urea Nitrogen 25 mg/dL (9-20); Calcium 7.8 mg/dL (8.4-10.2); Carbon Dioxide 27 mmol/L (22-30); Chloride 106 mmol/L (98-107); Estimated CRCL calculation 36 ml/min; Estimated Glomerular Filt Rate 51; Glucose 115 mg/dL (65-110); Potassium 4.1 mmol/L (3.4-5.0); Sodium 141 mmol/L (137-145)
[2024-07-13] MEDS: PIPERACILLIN/TAZ 2.25G/NS 50ML 2.25 GM/50 ML BAG IVPB ×2 (12:32→18:05)
[2024-07-13 12:59] LABS: Band Neutrophils Percent 0 % (0-6)
[2024-07-13 13:01] LABS: Platelet Estimate Adequate (Adequate)
[2024-07-13 13:02] LABS: Schistocytes None Seen
--- NOTE | 2024-07-13 14:58 | P.CONS_ITS ---
Assessment and Plan Assessment and plan (1) Small bowel obstruction: Code(s): K56.609 - Unspecified intestinal obstruction, unspecified as to partial versus complete obstruction Status: Acute Assessment and Plan: Patient appears to have a recurrent small-bowel obstruction. He has had a long history of prior surgeries in the past for bowel obstructions. Adhesions again are most likely the reason for his current episode of small-bowel obstruction. His last 2 episodes were resolved non operatively with nasogastric tube decompression. However this time we have not been able to adequately get a nasogastric tube in place on multiple attempts. There is no availability of a radiologist in house this weekend to try to place a NG tube under fluoroscopy. As a last resort could consider consulting GI to place a nasogastric tube with EGD. For now the patient seems to be relatively stable. Lactic acid level has decreased with resuscitation. His abdominal exam is pretty benign without any guarding or sending abdominal tenderness on palpation. He is mildly distended however. I did discuss with the patient's the possibility of needing to have surgery again. She understands. We will try again later this afternoon to place another NG tube. With sterile muscle IV antibiotics. IV fluids as well. HPI Data of Consult Date/Time: 07/13/24 14:58 Requesting Physician: Matias Rodriguez PA-C Primary Care Provider: Dada Pierce APRN Consult Narrative Reason for consult: Recurrent small-bowel obstruction Narrative: Audie Ruiz is a 89 year old male admitted to the hospital through the emergency room last evening complaining of a 1 day history of worsening abdominal pain associated with abdominal distension of multiple episodes of nausea vomiting home. The patient is well known to the general surgeons here at [facility] having had multiple admissions in the past for partial small- bowel obstructions. The last 1 was 2023 and he was treated by Dr. Carbone non operatively with bowel rest and nasogastric decompression. Patient had previously also had a abscess fluid for laparotomy adhesiolysis by Dr. Archer and prior to that time laparotomy is adhesiolysis at [facility] in [place]. Patient has CT scan abdomen pelvis in the emergency room last evening showing dilated small bowel with what appears to be transitioned port in the mid abdomen consistent with at least a partial small-bowel obstruction. White blood cell count was elevated but he was also dehydrated. Lactic acid level initially was 2.2. Repeat this morning is decreased at 1.1. [place] [id number]. Presently the patient states that he has feeling better. He does not have a lot of abdominal pain presently. He is not passing flatus or having bowel movements. He currently does not have an NG tube in place. Previous NG tubes from last evening and this morning shows the NG tube was rolled in the distal esophagus and not the right position. Review of Systems 2 Review of Systems: The remainder of the review of systems to include constitutional, HEENT, cardiovascular, respiratory, GI, , integumentary, musculoskeletal, endocrine, immunologic, hematologic, psychiatric, and neurologic are all negative except for which is mentioned above in the HPI. 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 He has smoked as much as a pack of cigarettes per day but has cut down to 1 pack every 2.5 days. He has no interest in quitting smoking. He denies any alcohol use or illicit substance use. 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 He has 1 child. Code status: Full code Surrogate decision maker: Smoking packs per day: 1 Smoking cigarettes per day: 20.0 Years smoked: 70 Smoking pack-years: 70.00 Smoking status: Current every day smoker Tobacco type: cigarettes Second hand tobacco smoke exposure: No Alcohol intake: never Substance use: never Do You Feel Safe in your Home?: Yes Lack of Transportation: No Lack of Food: Never True Current Housing: Decline to Answer Concerned About Future Housing: No Difficulty Paying Gas/Electric Bills: No Difficulty Paying for Meds: No Currently Unemployed: No Education: High School Diploma/GED Difficulty w/ Childcare or Family Care: No Gender identity (if verbalized by the patient): Male Sexual Orientation (if Verbalized by the Patient): Straight or Heterosexual Spiritual care concerns: No Agree to blood products: Yes Meds Home Medications and Allergies Home Medications ?Medication ?Instructions ?Recorded ?Confirmed ?Type losartan 50 mg tablet 50 mg PO DAILY 12/08/23 06/27/24 History metoprolol succinate 25 mg 25 mg PO DAILY #30 tabs 12/28/23 06/27/24 Rx tablet,extended release 24 hr aspirin 325 mg tablet 325 mg PO DAILY 04/01/24 06/27/24 History latanoprost 0.005 % eye drops 1 drp EACH EYE QHS 04/01/24 06/27/24 History Allergies Allergy/AdvReac Type Severity Reaction Status Date / Time No Known Drug Allergies Allergy Unknown Other Verified 06/27/24 11:04 Vital Signs Vital Signs - 24 hr 07/12/24 21:14 07/13/24 00:56 07/13/24 00:58 Temperature 36.6 C Pulse Rate 87 101 H Respiratory Rate 18 21 H Blood Pressure 155/87 H 170/104 H Pulse Oximetry 100 97 Oxygen Delivery Room Air 07/13/24 03:21 07/13/24 04:20 07/13/24 05:48 Temperature Pulse Rate 105 H 106 H 113 H Respiratory Rate 17 17 21 H Blood Pressure 160/107 H 170/105 H 141/91 H Pulse Oximetry 97 94 94 Oxygen Delivery 07/13/24 06:34 07/13/24 06:45 07/13/24 07:03 Temperature 37.4 C Pulse Rate 127 H 130 H Respiratory Rate 20 Blood Pressure 176/106 H Pulse Oximetry 95 Oxygen Delivery Room Air Exam 2 Const: General: comfortable and no acute distress HENMT: Ears: TM's normal bilaterally Face/Nose/Sinus: Normal nares present Mouth: Yes moist mucous membranes Eyes: General: appearance normal, both eyes and all related structures S clera: sclerae normal Pupils: Equal, round and reactive pupils present E OM: EOMs intact bilaterally Neck: Neck: supple and no JVD Resp: Effort & Inspection: normal respiratory effort Auscultation: clear to auscultation bilaterally Cardio: Rate: regular rate Rhythm: regular rhythm GI: Other: Abdomen is soft and mildly distended. Large midline scar from multiple laparotomies. Abdominal diastasis but no obvious incarcerated ventral hernia. No guarding and no peritoneal signs. Skin: General skin exam: normal color and no rashes or lesions noted Neuro: General: gait normal Speech: normal speech Motor exam (neuro): 5 /5 motor strength present throughout Sensory Exam: normal sensation Extrem: General: normal to inspection Psych: Affect: normal affect Results Labs 07/13/24 12:12 07/13/24 12:12 Labs: Short CBC 07/12/24 07/13/24 Range/Units 22:55 12:12 WBC 19.9 H 20.3 H (4.5-10.0) K/mm3 Hgb 12.7 L D 9.9 L (14.0-18.0) g/dL Hct 39.1 L 30.5 L (42.0-52.0) % Plt Count 299 D 224 (150-375) k/mm3 BMP 07/12/24 07/13/24 22:55 12:12 Sodium 142 141 Potassium 4.2 4.1 Chloride 98 106 Carbon Dioxide 30 27 BUN 22 H 25 H Creatinine 1.40 H 1.32 H Glucose 145 H 115 H Calcium 10.1 7.8 L Liver Function 07/12/24 07/13/24 Range/Units 22:55 12:12 Total Bilirubin 1.1 1.3 (0.2-1.3) mg/dL AST 35 26 (17-59) U/L ALT 20 15 (6-50) U/L Alkaline Phosphatase 90 55 (38-126) U/L Albumin 5.2 H 3.4 L (3.5-5.1) g/dL Urine 07/13/24 Range/Units 09:12 Urine Color Yellow (Yellow) Urine Appearance Clear (Clear) Urine pH 8.5 (5.0-9.0) Ur Specific [place] > 1.045 H (1.001-1.035) Urine Protein 1+ H (Negative) mg/dL Urine Glucose (UA) Negative (Negative) mg/dL Imaging Radiologist's impression: CT Scan Report Signed Patient: Audie Ruiz : 1935 MR#: [id number] Age: 89 Acct:[id number] Loc: [address] 341-01 ADM Date: 07/13/24Attending Dr: Eleanor Chauhan D.O. Ordering Physician: Adebayo Martinez MD Date of Service: 07/13/24 Procedure(s): CT abdomen pelvis w con Accession Number(s): [id number] cc: Eleanor Chauhan DO; Dada PierceN; Adebayo Martinez MD~ CT of the Abdomen and Pelvis: Indication: Bowel obstruction Technique: 2.5 mm axial scans were obtained through the abdomen and pelvis following intravenous administration of 100 cc of Omnipaque 350. Dose reduction technique was used on this scan by utilizing automated exposure control and iterative reconstruction technique. The dose-length product (DLP) was 494.89 mGy-cm. COMPARISON: 12/07/2023 Findings: Scans through the lung bases are unremarkable. Stable hepatic cysts. The spleen, pancreas, gallbladder, adrenals and kidneys are within normal limits. There are atherosclerotic calcifications of the aorta and iliac vessels. No lymphadenopathy. There are multiple dilated loops of small bowel. Transition point present in the midabdomen just right of midline (axial image 104, sagittal image 69), with decompressed distal small bowel. Prominent stool throughout large bowel suggests underlying constipation. Images through the pelvis were performed. Urinary bladder unremarkable. No pelvic mass seen. No ascites. Impression: Small bowel obstruction, with transition point as detailed above. Probable underlying constipation. Reviewed, dictated and finalized at [facility].
[2024-07-14] VITALS (14 sets, daily range): BP systolic 96–122; BP diastolic 60–82; PULSE 68–174; RESP 16–19; TEMP 36.4–36.9; O2SAT 96–98
[2024-07-14] MEDS: PIPERACILLIN/TAZ 2.25G/NS 50ML 2.25 GM/50 ML BAG IVPB ×4 (00:58→18:09)
[2024-07-14 05:42] LABS: Basophils Absolute Auto 0.1 K/mm3 (0.0-0.1); Basophils Percent Auto 0.4 % (0.2-1.2); Eosinophils Absolute Auto 0.1 K/mm3 (0-0.3); Eosinophils Percent Auto 0.5 % (0-4.4); Hematocrit 25.1 % (42.0-52.0); Hemoglobin 8.1 g/dL (14.0-18.0); Immature Granulocyte Absolute 0.06 K/mm3 (0.00-0.031); Immature Granulocyte Percent A 0.4 % (0-0.5); Lymphocytes Absolute Auto 2.64 K/mm3 (0.9-3.2); Lymphocytes Percent Auto 16.4 % (18.3-44.2); Mean Corpuscular HGB Conc 32.3 g/dl (32-36); Mean Corpuscular Volume 96.2 fl (80-100); Mean Platelet Volume 10.7 fl (7.4-10.4); Monocytes Absolute Auto 1.2 K/mm3 (0.1-0.6); Monocytes Percent Auto 7.1 % (2.6-8.5); Neutrophils Absolute Auto 12.1 K/mm3 (1.3-6.7); Neutrophils Percent Auto 75.2 % (45.5-73.1); Platelet Count Result 187 k/mm3 (150-375); Red Blood Count 2.61 M/mm3 (4.6-6.20); Red Cell Distribution Width 15.5 % (11.5-14.5); White Blood Count 16.1 K/mm3 (4.5-10.0)
[2024-07-14 05:52] LABS: Lactic Acid Reflex 0.8 mmol/L (0.7-2.0)
[2024-07-14 05:53] LABS: Alanine Aminotransferase 12 U/L (6-50); Albumin Level 2.8 g/dL (3.5-5.1); Alkaline Phosphatase 46 U/L (38-126); Anion Gap 5 mmol/L (4-12); Aspartate Amino Transferase 24 U/L (17-59); Bilirubin,Total 1.6 mg/dL (0.2-1.3); Blood Urea Nitrogen 27 mg/dL (9-20); Calcium 7.6 mg/dL (8.4-10.2); Carbon Dioxide 24 mmol/L (22-30); Chloride 111 mmol/L (98-107); Estimated CRCL calculation 39 ml/min; Estimated Glomerular Filt Rate 58; Glucose 86 mg/dL (65-110); Potassium 3.7 mmol/L (3.4-5.0); Sodium 140 mmol/L (137-145)
[2024-07-14] MEDS: SODIUM CHLORIDE 0.9% IV 1,000 ML 125 ML IV CONT ×3 (05:55→20:29)
--- NOTE | 2024-07-14 07:42 | PM.IMPN ---
Progress Note: A&P Assessment and Plan (1) Small bowel obstruction: Code(s): K56.609 - Unspecified intestinal obstruction, unspecified as to partial versus complete obstruction Status: Acute Assessment and Plan: - CT Scan: There are multiple dilated loops of small bowel. Transition point present in the midabdomen just right of midline (axial image 104, sagittal image 69), with decompressed distal small bowel. Prominent stool throughout large bowel suggests underlying constipation. - Multiple previous SBOs and abdominal surgeries (, 2016, 2018) - Monitor I&Os, vital signs, neuro status and patient is a fall risk - Monitor serum electrolytes and CBC - General surgery consulted, appreciate recommendations - Currently NPO, bowel rest, IV Fluids - Per Gen Surg, monitor symptoms and vitals at this time, IR to place NG tube tomorrow, patient is stable for time being (2) Atrial fibrillation: Code(s): I48.91 - Unspecified atrial fibrillation Status: Acute Assessment and Plan: Keep serum potassium >4 and keep magnesium >2 Consult Cardiology for further management, appreciate assistance and recommendations Metoprolol 25mg PO intial dose Hold anticoagulation Echocardiogram ordered (3) Leukocytosis: Code(s): D72.829 - Elevated white blood cell count, unspecified Status: Acute Assessment and Plan: Likely secondary to SBO WBC= 16.1 today, In ED 19.9 Patient is afebrile Chest x-ray: No acute cardiopulmonary pathology Urine showed 3-5 RBC, otherwise unremarkable Viral panel negative for Flu A/B, RSV, COVID (4) Essential hypertension: Code(s): I10 - Essential (primary) hypertension Status: Acute Assessment and Plan: Chronic, last BP reading 122/67 (5) Paget disease of bone: Code(s): 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 07/14/2024 Patient is sitting comfortably in bed resting. He denies any chest pain, shortness of breath, n/v, dizziness, abdominal pain or difficulty urinating. Given abdominal distension is improving and he's denying any n/v, General Surgery okay holding off on NG tube placement for today. WBC down from 20.3k to 16.1k today. New onset A-fib with RVR was reported with heart rate ranging from 140-170s. He was given 25mg PO Metoprolol and HR subsequently dropped into the 100s. Cardiology consulted. History of afib following ex lap in 2018 and also in November 2023. Echocardiogram ordered, hold on Lovenox for now due to possible surgery. Review of Systems Review of Systems: All systems reviewed & are unremarkable except as noted in HPI and below Exam Narrative: Gen - Eldery, ill appearing male in no acute respiratory distress who is nontoxic-appearing lying semi recumbent in bed HEENT - normocephalic. Atraumatic. Pupils equal round and reactive. Extraocular motions intact. Sclera clear and anicteric. Nares patent. Oropharynx was clear. No oral lesions. Moist mucous membranes. Tongue was midline. Neck - neck was supple. No dominant adenopathy, thyromegaly or masses. 2+ carotid upstrokes without bruits. Chest - lungs are clear to auscultation bilaterally. No wheezes or crackles. CV - tachycardia S1-S2. No murmurs gallops or rubs. Abd - abdomen was soft, slightly distended, diffusely tender. Positive bowel sounds. No organomegaly or masses. Ext - no clubbing, cyanosis or edema. 2+ DP pulses bilaterally. Neuro - patient is alert and oriented x4. Psych - normal mood and affect. Patient is pleasant and cooperative. Skin - warm and dry. No rashes noted. Objective Data Vital Signs Vital Signs: Vital Signs - 24 hr 07/13/24 08:00 07/13/24 09:00 07/13/24 12:00 Temperature Pulse Rate 102 H 89 Respiratory Rate Blood Pressure Pulse Oximetry Oxygen Delivery Room Air 07/13/24 14:00 07/13/24 16:00 07/13/24 20:00 Temperature 98.7 F Pulse Rate 98 78 Respiratory Rate 20 Blood Pressure 150/82 H Pulse Oximetry 97 Oxygen Delivery Room Air 07/13/24 20:00 07/13/24 21:28 07/14/24 00:00 Temperature 98.2 F Pulse Rate 73 67 70 Respiratory Rate 18 Blood Pressure 138/72 Pulse Oximetry 96 Oxygen Delivery 07/14/24 04:00 07/14/24 04:21 Temperature 98.4 F Pulse Rate 68 72 Respiratory Rate 16 Blood Pressure 122/67 Pulse Oximetry 96 Oxygen Delivery Intake/Output Intake/Output: Intake & Output 07/11/24 07/12/24 07/13/24 07/14/24 23:59 23:59 23:59 23:59 Intake Total 2989.6 1050 Output Total 200 600 Balance 2789.6 450 Meds/Results Medications: Active Medications Generic Name Dose Route Start Last Admin Trade Name Freq PRN Reason Stop Dose Admin Acetaminophen 650 mg 07/13/24 04:03 Acetaminophen 650 Mg Suppository RECTAL Q6H PRN Mild Pain (1-3) or Fever Dextrose 12.5 gm 07/13/24 04:03 Dextrose 50% 25 Gm/50 Ml Syringe IV PUSH PRN PRN Hypoglycemia Protocol Glucagon 1 mg 07/13/24 04:03 Glucagon For Inj 1 Mg Vial IM PRN PRN Hypoglycemia Protocol Glucose 15 gm 07/13/24 04:03 Glucose Oral Gel 15 Gm Of Glucse In 37.5 Gm Tube PO PRN PRN Hypoglycemia Protocol Sodium Chloride 1,000 mls @ 125 mls/hr 07/13/24 03:55 07/14/24 05:55 Normal Saline Iv IV CONT 125 mls/hr .Q8H VANESSA Administration Dextrose 1,000 mls @ 100 mls/hr 07/13/24 04:03 Dextrose 5% 1,000 Ml IVPB PRN PRN Hypoglycemia Protocol Piperacillin Sod/Tazobactam Sod 2.25 gm in 50 mls @ 100 mls/hr 07/13/24 12:00 07/14/24 05:55 Zosyn 2.25 Gm/Ns 50 Ml IVPB 100 mls/hr Q6HR VANESSA Administration Metoprolol Tartrate 5 mg 07/13/24 12:06 Metoprolol Tartrate Inj 5 Mg/5 Ml Vial IV PUSH Q6HR PRN Tachycardia Morphine Sulfate 4 mg 07/13/24 04:03 Morphine Sulfate (*Crx) 4 Mg/Ml Inj IV PUSH Q2H PRN Pain Rated 7-10 Ondansetron HCl 4 mg 07/13/24 04:03 Ondansetron Inj 4 Mg/2 Ml Vial IV PUSH Q4H PRN Nausea Radiology Results: ITS Impressions Chest X-Ray 07/12/24 23:24 IMPRESSION: No acute cardiopulmonary pathology. Abdomen/Pelvis CT 07/13/24 06:13 Impression: Small bowel obstruction, with transition point as detailed above. Probable underlying constipation. Abdomen X-Ray 07/13/24 11:13 Impression: NG tube side-port is just above the GE junction. Further advancement the stomach advised. Labs Labs: Laboratory Results - last 24 hr 07/13/24 07/13/24 07/14/24 09:12 12:12 05:13 WBC 20.3 H 16.1 H RBC 3.24 L 2.61 L Hgb 9.9 L 8.1 L Hct 30.5 L 25.1 L MCV 94.1 96.2 MCH 30.6 31.0 MCHC 32.5 32.3 RDW 15.3 H 15.5 H Plt Count 224 187 MPV 10.0 10.7 H Immature Gran % (Auto) 0.3 0.4 Neut % (Auto) 88.3 H 75.2 H Lymph % (Auto) 5.1 L 16.4 L [place] % (Auto) 5.9 7.1 Eos % (Auto) 0.2 0.5 Baso % (Auto) 0.2 0.4 Lymph # (Auto) 1.03 2.64 [place] # (Auto) 1.2 H 1.2 H Eos # (Auto) 0.0 0.1 Baso # (Auto) 0.1 0.1 Abs Immat Gran (auto) 0.07 H 0.06 H Absolute Neuts (auto) 17.9 H 12.1 H Absolute Nucleated RBC 0.000 0.000 Band Neutrophils % 0 Nucleated RBC % 0.0 0.0 Platelet Estimate Adequate Schistocytes None seen Sodium 141 140 Potassium 4.1 3.7 Chloride 106 111 H Carbon Dioxide 27 24 Anion Gap 8 5 BUN 25 H 27 H Creatinine 1.32 H 1.19 Estim Creat Clear Calc 36 39 Estimated GFR 51 L 58 L Glucose 115 H 86 Lactic Acid 0.8 Calcium 7.8 L 7.6 L Total Bilirubin 1.3 1.6 H AST 26 24 ALT 15 12 Alkaline Phosphatase 55 46 Total Protein 7.0 6.0 L Albumin 3.4 L 2.8 L Urine Color Yellow Urine Appearance Clear Urine pH 8.5 Ur Specific [place] > 1.045 H Urine Protein 1+ H Urine Glucose (UA) Negative Urine Ketones Trace H Ur Blood (Man) Negative Urine Nitrate Negative Urine Bilirubin Negative Urine Urobilinogen 1.0 Leukocyte Esterase Rfl Negative Urine RBC 3-5 H Urine WBC 0-5 Ur Squamous Epith Cells None seen Urine Bacteria None seen Urine Casts 0-2 Hospitalist MIPS Advance Care Plan I have confirmed that the patient's Advanced Care Plan is present, code status is documented, or surrogate decision maker is listed in patient medical record.: Yes Medication Reconciliation I have utilized all available resources to obtain, update and review the patients current medications (includes all prescriptions, OTC, herbals, cannabis, and nutritional supplements).: Yes
--- NOTE | 2024-07-14 09:21 | WPDPN ---
Progress Note: A&P Assessment and Plan (1) Small bowel obstruction: Code(s): K56.609 - Unspecified intestinal obstruction, unspecified as to partial versus complete obstruction Status: Acute Assessment and Plan: Recurrent partial small-bowel obstruction. Continue with NPO for today. Can go ahead and have some oral medications with a sip of water if needed. For now as long as his abdominal distention is improving and he is not having nausea vomiting well hold off on placing an NG tube. That was difficulty yesterday and 1 was not placed yesterday but he seems to be clinically improving. His white blood cell count is decreased down to 16,000 today. Continue IV antibiotics. Continue close observation with serial abdominal exams. Consider getting a water-soluble small bowel series tomorrow. Subjective Date/time seen: 07/14/24 09:21 Interval history: Patient really has no complaints this morning. No nausea overnight. States he is passing flatus. No bowel movement. Denies any abdominal pain. Blood pressure is systolic 90s to 100s. His heart rate however is the 130s. Hospitalist has been contacted to manage this. He has not been getting up out of bed yet. Exam GI: Other: Abdomen is softer. Distension. No tenderness to palpation throughout the abdomen. Exam is relatively benign. Objective Data Vital Signs Vital Signs: Vital Signs - 24 hr 07/13/24 12:00 07/13/24 14:00 07/13/24 16:00 Temperature 37.1 C Pulse Rate 89 98 78 Respiratory Rate 20 Blood Pressure 150/82 H Pulse Oximetry 97 Oxygen Delivery 07/13/24 20:00 07/13/24 20:00 07/13/24 21:28 Temperature 36.8 C Pulse Rate 73 67 Respiratory Rate 18 Blood Pressure 138/72 Pulse Oximetry 96 Oxygen Delivery Room Air 07/14/24 00:00 07/14/24 04:00 07/14/24 04:21 Temperature 36.9 C Pulse Rate 70 68 72 Respiratory Rate 16 Blood Pressure 122/67 Pulse Oximetry 96 Oxygen Delivery Intake/Output Intake/Output: Intake & Output 07/11/24 07/12/24 07/13/24 07/14/24 23:59 23:59 23:59 23:59 Intake Total 2989.6 1100 Output Total 200 600 Balance 2789.6 500 Meds/Results Medications: Active Medications Generic Name Dose Route Start Last Admin Trade Name Freq PRN Reason Stop Dose Admin Acetaminophen 650 mg 07/13/24 04:03 Acetaminophen 650 Mg Suppository RECTAL Q6H PRN Mild Pain (1-3) or Fever Dextrose 12.5 gm 07/13/24 04:03 Dextrose 50% 25 Gm/50 Ml Syringe IV PUSH PRN PRN Hypoglycemia Protocol Glucagon 1 mg 07/13/24 04:03 Glucagon For Inj 1 Mg Vial IM PRN PRN Hypoglycemia Protocol Glucose 15 gm 07/13/24 04:03 Glucose Oral Gel 15 Gm Of Glucse In 37.5 Gm Tube PO PRN PRN Hypoglycemia Protocol Sodium Chloride 1,000 mls @ 125 mls/hr 07/13/24 03:55 07/14/24 05:55 Normal Saline Iv IV CONT 125 mls/hr .Q8H VANESSA Administration Dextrose 1,000 mls @ 100 mls/hr 07/13/24 04:03 Dextrose 5% 1,000 Ml IVPB PRN PRN Hypoglycemia Protocol Piperacillin Sod/Tazobactam Sod 2.25 gm in 50 mls @ 100 mls/hr 07/13/24 12:00 07/14/24 06:25 Zosyn 2.25 Gm/Ns 50 Ml IVPB Infused Q6HR VANESSA Infusion Metoprolol Succinate 25 mg 07/14/24 09:00 Metoprolol Succinate Ext Rel 25 Mg Tabcr PO QAM VANESSA Metoprolol Tartrate 5 mg 07/13/24 12:06 Metoprolol Tartrate Inj 5 Mg/5 Ml Vial IV PUSH Q6HR PRN Tachycardia Morphine Sulfate 4 mg 07/13/24 04:03 Morphine Sulfate (*Crx) 4 Mg/Ml Inj IV PUSH Q2H PRN Pain Rated 7-10 Ondansetron HCl 4 mg 07/13/24 04:03 Ondansetron Inj 4 Mg/2 Ml Vial IV PUSH Q4H PRN Nausea Radiology Results: ITS Impressions Chest X-Ray 07/12/24 23:24 IMPRESSION: No acute cardiopulmonary pathology. Abdomen/Pelvis CT 07/13/24 06:13 Impression: Small bowel obstruction, with transition point as detailed above. Probable underlying constipation. Abdomen X-Ray 07/13/24 11:13 Impression: NG tube side-port is just above the GE junction. Further advancement the stomach advised. Labs Labs: Laboratory Results - last 24 hr 07/13/24 07/13/24 07/14/24 09:12 12:12 05:13 WBC 20.3 H 16.1 H RBC 3.24 L 2.61 L Hgb 9.9 L 8.1 L Hct 30.5 L 25.1 L MCV 94.1 96.2 MCH 30.6 31.0 MCHC 32.5 32.3 RDW 15.3 H 15.5 H Plt Count 224 187 MPV 10.0 10.7 H Immature Gran % (Auto) 0.3 0.4 Neut % (Auto) 88.3 H 75.2 H Lymph % (Auto) 5.1 L 16.4 L [place] % (Auto) 5.9 7.1 Eos % (Auto) 0.2 0.5 Baso % (Auto) 0.2 0.4 Lymph # (Auto) 1.03 2.64 [place] # (Auto) 1.2 H 1.2 H Eos # (Auto) 0.0 0.1 Baso # (Auto) 0.1 0.1 Abs Immat Gran (auto) 0.07 H 0.06 H Absolute Neuts (auto) 17.9 H 12.1 H Absolute Nucleated RBC 0.000 0.000 Band Neutrophils % 0 Nucleated RBC % 0.0 0.0 Platelet Estimate Adequate Schistocytes None seen Sodium 141 140 Potassium 4.1 3.7 Chloride 106 111 H Carbon Dioxide 27 24 Anion Gap 8 5 BUN 25 H 27 H Creatinine 1.32 H 1.19 Estim Creat Clear Calc 36 39 Estimated GFR 51 L 58 L Glucose 115 H 86 Lactic Acid 0.8 Calcium 7.8 L 7.6 L Total Bilirubin 1.3 1.6 H AST 26 24 ALT 15 12 Alkaline Phosphatase 55 46 Total Protein 7.0 6.0 L Albumin 3.4 L 2.8 L Urine Color Yellow Urine Appearance Clear Urine pH 8.5 Ur Specific [place] > 1.045 H Urine Protein 1+ H Urine Glucose (UA) Negative Urine Ketones Trace H Ur Blood (Man) Negative Urine Nitrate Negative Urine Bilirubin Negative Urine Urobilinogen 1.0 Leukocyte Esterase Rfl Negative Urine RBC 3-5 H Urine WBC 0-5 Ur Squamous Epith Cells None seen Urine Bacteria None seen Urine Casts 0-2
--- NOTE | 2024-07-14 09:34 | ECG_ITS ---
Test Date: 2024-07-14 09:48:58 Measurements Intervals [place] Rate: 160 P: 0 OK: 0 QRS: 1 QRSD: 80 T: 30 QT: 268 QTc: 437 Interpretive Statements ATRIAL FIBRILLATION WITH RAPID VENTRICULAR RESPONSE WITH ABERRANT CONDUCTION OR VENTRICULAR PREMATURE COMPLEXES NONSPECIFIC ST & T-WAVE ABNORMALITY Electronically Signed On 07-14-2024 14:02:51 CDT by Henry Lyons D.O
[2024-07-14] MEDS: METOPROLOL SUCCINATE EXT REL 25 MG TABCR PO (09:39)
--- NOTE | 2024-07-14 11:20 | PC.NURSE ---
RN spoke with hospitalist Matias and informed him that patient's heart rate has decreased (see VITALS) since oral medication was given (see MAR). RN stated she wanted to hold off on the IV medication (see MAR) as the patient's heart rate has decreased (see VITALS). Hospitalist Matias agreed to hold off on IV medication at this time.
[2024-07-14 20:38] LABS: Glucose Point of Care 79 mg/dl (65-105)
[2024-07-15] VITALS (12 sets, daily range): BP systolic 115–162; BP diastolic 69–95; PULSE 84–119; RESP 16–20; TEMP 36.1–36.5; O2SAT 97–99
--- NOTE | 2024-07-15 | ECHO_ITS ---
Patient Info Name: Audie Ruiz Age: 89 years : 1935 Gender: Male Ht: 72 in Wt: 156 lbs BSA: 1.89 m2 HR: 97 bpm BP: 134 / 71 mmHg Technical Quality: Good Exam Date: 07/15/2024 8:39 AM Exam Location: Echo Lab Patient Status: Inpatient Admit Date: 07/13/2024 Staff Ordering Physician: Matias Rodriguez PA-C Negotiator: Imelda Kendall RDCS Attending Provider: Matias Rodriguez PA-C Referring Physician: Jennifer MEHTA; Exam Type: CA echo doppler color flow Study Info Indications - A-fib Complete two-dimensional, color flow and Doppler transthoracic echocardiogram is performed. Summary 1. Complete two-dimensional, color flow and Doppler transthoracic echocardiogram is performed. 2. Left ventricular chamber dimension is normal. 3. Left ventricular systolic function is normal, estimated at 65-70%. 4. The left ventricular diastolic function is normal. 5. E/e' 7 is not elevated. 6. Atrial fibrillation. 7. Left atrial chamber dimension is moderately enlarged. 8. Right atrial chamber dimension is mildly enlarged. 9. There is mild aortic valve sclerosis. 10. There is trace mitral valve regurgitation. 11. There is mild tricuspid valve regurgitation. 12. No pulmonary hypertension, estimated pulmonary arterial systolic pressure is 32 mmHg. Left Ventricle E/e' 7 is not elevated. Atrial fibrillation. Left ventricular chamber dimension is normal. Left ventricular systolic function is normal, estimated at 65-70%. The left ventricular diastolic function is normal. Right Ventricle Right ventricular systolic function is normal and with normal TAPSE 1.8 cm. Right ventricular chamber dimension is normal. Left Atria Left atrial chamber dimension is moderately enlarged. Right Atria Right atrial chamber dimension is mildly enlarged. Aortic Valve The aortic valve is trileaflet. There is mild aortic valve sclerosis. There is no aortic valve stenosis. There is no aortic valve regurgitation. Pulmonic Valve There is no pulmonic regurgitation. Mitral Valve There is no mitral valve stenosis. There is trace mitral valve regurgitation. Tricuspid Valve There is mild tricuspid valve regurgitation. No pulmonary hypertension, estimated pulmonary arterial systolic pressure is 32 mmHg. Pericardium/Pleural There is no pericardial effusion. Inferior Vena Cava Normal inferior vena cava with >50% collapse upon inspiration consistent with normal right atrial pressure, 5 mmHg. Aorta The aortic root size at the sinus of Valsalva is normal. Left Ventricular Outflow Tract Name Value Normal LVOT 2D LVOT Diameter 2.0 cm LVOT Doppler LVOT Peak Gradient 4 mmHg LVOT Mean Gradient 2 mmHg LVOT VTI 24 cm LVOT VTI/AV VTI Ratio 0.9 LVOT Stroke Volume 76 ml LVOT CO 13.9 l/min LVOT CI 7.4 l/min/m2 Mitral Valve Name Value Normal MV Doppler MV Decel [place] 553 cm/s2 MV PHT 51 ms MV Area (PHT) 4.3 cm2 4.0-5.0 MV Diastolic Function MV E Peak Velocity 97 cm/s MV A Peak Velocity 4 cm/s MV E/A 23.6 MV Decel Time 176 ms MV Annular TDI MV E/e' (Septal) 6.8 <=8.0 MV E/e' (Lateral) 7.5 <=8.0 MV E/e' (Average) 7.2 Tricuspid Valve Name Value Normal TV Regurgitation Doppler TR Peak Velocity 258 cm/s TR Peak Gradient 23 mmHg Estimated PAP/RSVP RA Pressure 5 mmHg <=5 PA Systolic Pressure 32 mmHg <36 RV Systolic Pressure 32 mmHg <36 Aorta Name Value Normal Ascending Aorta Ao Root Diameter (MM) 3.0 cm Ao Root Diam Index (MM) 1.6 cm/m2 Aortic Valve Name Value Normal AV Doppler AV Peak Velocity 151 cm/s AV Peak Gradient 9 mmHg AV Mean Gradient 6 mmHg AV VTI 28 cm AV Area (Cont Eq VTI) 2.7 cm2 >=3.0 AV Area (Cont Eq Brandon) 2.0 cm2 AV Regurgitation 2D LVOT Area 3.1 cm2 Ventricles Name Value Normal LV Dimensions 2D/MM IVS Diastolic Thickness (2D) 1.1 cm 0.6-1.0 LVID Diastole (2D) 3.9 cm 4.2-5.8 LVIW Diastolic Thickness (2D) 1.0 cm 0.6-1.0 LVID Systole (2D) 2.3 cm 2.5-4.0 LVOT Diameter 2.0 cm LV Mass (2D Cubed) 128.39 g 88.00-224.00 LV Mass Index (2D Cubed) 68 g/m2 49-115 Relative Wall Thickness (2D) 0.50 LV Fractional Shortening/Ejection Fraction 2D/MM LV Fractional Shortening (2D) 42 % 25-43 LV EF (2D Teicholz) 73 % 52-72 LV Diastolic Volume (4C MOD) 68 ml LV EF (4C MOD) 55 % LV Diastolic Volume (2C MOD) 66 ml LV EF (2C MOD) 65 % LV Diastolic Volume (BP MOD) 68 ml 62-150 LV Diastolic Volume Index (BP MOD) 36 ml/m2 34-74 LV Systolic Volume (BP MOD) 26 ml 21-61 LV Systolic Volume Index (BP MOD) 14 ml/m2 11-31 LV EF (BP MOD) 62 % 52-72 LV Diastolic Length (4C) 7.8 cm LV Systolic Length (4C) 6.2 cm LV Stroke Volume (4C MOD) 37 ml RV Dimensions 2D/MM RVID Diastole (2D) 4.1 cm 2.5-3.5 Atria Name Value Normal LA Dimensions LA Volume (4C A-L) 58 ml LA Volume (BP A-L) 68 ml RA Dimensions RA Area (4C) 19.0 cm2 <=18.0 Report Signatures
[2024-07-15] MEDS: PIPERACILLIN/TAZ 2.25G/NS 50ML 2.25 GM/50 ML BAG IVPB ×3 (00:50→12:33)
[2024-07-15] MEDS: SODIUM CHLORIDE 0.9% IV 1,000 ML 125 ML IV CONT ×3 (05:02→20:21)
[2024-07-15 05:29] LABS: Basophils Percent Auto 0.3 % (0.2-1.2); Eosinophils Absolute Auto 0.1 K/mm3 (0-0.3); Hematocrit 25.7 % (42.0-52.0); Hemoglobin 8.1 g/dL (14.0-18.0); Immature Granulocyte Absolute 0.03 K/mm3 (0.00-0.031); Immature Granulocyte Percent A 0.3 % (0-0.5); Lymphocytes Absolute Auto 2.64 K/mm3 (0.9-3.2); Lymphocytes Percent Auto 24.4 % (18.3-44.2); Mean Corpuscular HGB Conc 31.5 g/dl (32-36); Mean Corpuscular Hemoglobin 30.5 pg (26-34); Mean Corpuscular Volume 96.6 fl (80-100); Mean Platelet Volume 10.6 fl (7.4-10.4); Monocytes Percent Auto 9.1 % (2.6-8.5); Neutrophils Percent Auto 64.9 % (45.5-73.1); Nucleated Red Blood Cells Perc 0.3 % (0.0-0.2); Platelet Count Result 172 k/mm3 (150-375); Red Blood Count 2.66 M/mm3 (4.6-6.20); Red Cell Distribution Width 15.5 % (11.5-14.5); White Blood Count 10.8 K/mm3 (4.5-10.0)
[2024-07-15 05:49] LABS: Alanine Aminotransferase 14 U/L (6-50); Albumin Level 2.8 g/dL (3.5-5.1); Alkaline Phosphatase 45 U/L (38-126); Anion Gap 6 mmol/L (4-12); Aspartate Amino Transferase 32 U/L (17-59); Blood Urea Nitrogen 29 mg/dL (9-20); Calcium 7.7 mg/dL (8.4-10.2); Carbon Dioxide 21 mmol/L (22-30); Chloride 114 mmol/L (98-107); Estimated CRCL calculation 39 ml/min; Estimated Glomerular Filt Rate 57; Glucose 77 mg/dL (65-110); Potassium 3.9 mmol/L (3.4-5.0); Sodium 141 mmol/L (137-145)
--- NOTE | 2024-07-15 06:57 | P.PNIM_ITS ---
Progress Note: A&P Assessment and Plan (1) Small bowel obstruction: Code(s): K56.609 - Unspecified intestinal obstruction, unspecified as to partial versus complete obstruction Status: Acute Assessment and Plan: - CT Scan: There are multiple dilated loops of small bowel. Transition point present in the midabdomen just right of midline with decompressed distal small bowel. Prominent stool throughout large bowel suggests underlying constipation. - Multiple previous SBOs and abdominal surgeries (2015x2, 2017, 2019) - General surgery consulted. appreciate recommendations - Currently NPO, bowel rest, IV Fluids - Per Gen Surg, monitor symptoms and vitals at this time, IR to place NG tube tomorrow, patient is stable for time being - Per Gen Surg, progress to liquid diet today, if unsuccessful, plan for water- soluble small-bowel follow-through - Continue IV antibiotics for now and close observation with serial abdominal exams. (2) Atrial fibrillation: Code(s): I48.91 - Unspecified atrial fibrillation Status: Acute Assessment and Plan: Keep serum potassium >4 and keep magnesium >2 Metoprolol 25mg PO intial dose Cardiology consulted, they initiated 80mg Sotatol q12hr, appreciated any other recommendations Hold anticoagulation Echocardiogram resulted: LV chamber dimension normal, EF estimated at 65-70%. Left/Right atrial moderately/mildly enlarged. 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 07/15/2024 Patient is sitting the bedside. He denies chest pain shortness a breath, dizziness numbness vomiting abdominal pain, urinary changes. He endorses flatus but no bowel movement. P.o. metoprolol was initiated yesterday due to continued atrial fibrillation on telemetry. Cardiology was consulted echocardiogram was ordered. Sotalol was initiated per Cardiology. Heart rates ranging from 90-110 at this time. Review of Systems Review of Systems: All systems reviewed & are unremarkable except as noted in HPI and below Exam Narrative: Gen - Eldery, ill appearing male in no acute respiratory distress who is nontoxic-appearing lying semi recumbent in bed HEENT - normocephalic. Atraumatic. Pupils equal round and reactive. Extraocular motions intact. Sclera clear and anicteric. Nares patent. Oropharynx was clear. No oral lesions. Moist mucous membranes. Tongue was midline. Neck - neck was supple. No dominant adenopathy, thyromegaly or masses. 2+ carotid upstrokes without bruits. Chest - lungs are clear to auscultation bilaterally. No wheezes or crackles. CV - tachycardia S1-S2. No murmurs gallops or rubs. Abd - abdomen was soft, slightly distended, diffusely tender. Positive bowel sounds. No organomegaly or masses. Ext - no clubbing, cyanosis or edema. 2+ DP pulses bilaterally. Neuro - patient is alert and oriented x4. Psych - normal mood and affect. Patient is pleasant and cooperative. Skin - warm and dry. No rashes noted. Objective Data Vital Signs Vital Signs: Vital Signs - 24 hr 07/14/24 08:04 07/14/24 09:22 07/14/24 09:39 Temperature Pulse Rate 147 H 174 H Respiratory Rate Blood Pressure 97/60 L Pulse Oximetry Oxygen Delivery 07/14/24 09:39 07/14/24 11:26 07/14/24 12:05 Temperature Pulse Rate 115 H 121 H Respiratory Rate Blood Pressure Pulse Oximetry Oxygen Delivery Room Air 07/14/24 12:22 07/14/24 14:00 07/14/24 16:00 Temperature 98.0 F Pulse Rate 104 H 87 125 H Respiratory Rate 19 Blood Pressure 115/82 Pulse Oximetry 98 Oxygen Delivery 07/14/24 16:13 07/14/24 20:00 07/14/24 20:00 Temperature Pulse Rate 102 H 130 H Respiratory Rate Blood Pressure Pulse Oximetry Oxygen Delivery Room Air 07/14/24 21:24 07/15/24 00:00 07/15/24 04:00 Temperature 97.6 F Pulse Rate 82 106 H 94 Respiratory Rate 16 Blood Pressure 96/62 L Pulse Oximetry 98 Oxygen Delivery 07/15/24 06:00 Temperature 97.4 F L Pulse Rate 96 Respiratory Rate 16 Blood Pressure 134/71 Pulse Oximetry 97 Oxygen Delivery Intake/Output Intake/Output: Intake & Output 07/12/24 07/13/24 07/14/24 07/15/24 23:59 23:59 23:59 23:59 Intake Total 2989.6 2972.9 1050 Output Total 200 600 600 Balance 2789.6 2372.9 450 Meds/Results Medications: Active Medications Generic Name Dose Route Start Last Admin Trade Name Freq PRN Reason Stop Dose Admin Acetaminophen 650 mg 07/13/24 04:03 Acetaminophen 650 Mg Suppository RECTAL Q6H PRN Mild Pain (1-3) or Fever Dextrose 12.5 gm 07/13/24 04:03 Dextrose 50% 25 Gm/50 Ml Syringe IV PUSH PRN PRN Hypoglycemia Protocol Glucagon 1 mg 07/13/24 04:03 Glucagon For Inj 1 Mg Vial IM PRN PRN Hypoglycemia Protocol Glucose 15 gm 07/13/24 04:03 Glucose Oral Gel 15 Gm Of Glucse In 37.5 Gm Tube PO PRN PRN Hypoglycemia Protocol Sodium Chloride 1,000 mls @ 125 mls/hr 07/13/24 03:55 07/15/24 05:02 Normal Saline Iv IV CONT 125 mls/hr .Q8H VANESSA Administration Dextrose 1,000 mls @ 100 mls/hr 07/13/24 04:03 Dextrose 5% 1,000 Ml IVPB PRN PRN Hypoglycemia Protocol Piperacillin Sod/Tazobactam Sod 2.25 gm in 50 mls @ 100 mls/hr 07/13/24 12:00 07/15/24 05:02 Zosyn 2.25 Gm/Ns 50 Ml IVPB 100 mls/hr Q6HR VANESSA Administration Metoprolol Succinate 25 mg 07/14/24 09:00 07/14/24 09:39 Metoprolol Succinate Ext Rel 25 Mg Tabcr PO 25 mg QAM VANESSA Administration Metoprolol Tartrate 5 mg 07/13/24 12:06 Metoprolol Tartrate Inj 5 Mg/5 Ml Vial IV PUSH Q6HR PRN Tachycardia Morphine Sulfate 4 mg 07/13/24 04:03 Morphine Sulfate (*Crx) 4 Mg/Ml Inj IV PUSH Q2H PRN Pain Rated 7-10 Ondansetron HCl 4 mg 07/13/24 04:03 Ondansetron Inj 4 Mg/2 Ml Vial IV PUSH Q4H PRN Nausea Perflutren Lipid Microsphere 0 ml 07/14/24 13:40 Perflutren Lipid Microspheres 1.5 Ml Vial Diluted To 10 Ml Total Volume IV PUSH 07/17/24 13:40 ONCE PRN adequate visualization Protocol Radiology Results: ITS Impressions Chest X-Ray 07/12/24 23:24 IMPRESSION: No acute cardiopulmonary pathology. Abdomen/Pelvis CT 07/13/24 06:13 Impression: Small bowel obstruction, with transition point as detailed above. Probable underlying constipation. Abdomen X-Ray 07/13/24 11:13 Impression: NG tube side-port is just above the GE junction. Further advancement the stomach advised. Labs Labs: Laboratory Results - last 24 hr 07/14/24 07/15/24 19:54 04:59 WBC 10.8 H RBC 2.66 L Hgb 8.1 L Hct 25.7 L MCV 96.6 MCH 30.5 MCHC 31.5 L RDW 15.5 H Plt Count 172 MPV 10.6 H Immature Gran % (Auto) 0.3 Neut % (Auto) 64.9 Lymph % (Auto) 24.4 [place] % (Auto) 9.1 H Eos % (Auto) 1.0 Baso % (Auto) 0.3 Lymph # (Auto) 2.64 [place] # (Auto) 1.0 H Eos # (Auto) 0.1 Baso # (Auto) 0.0 Abs Immat Gran (auto) 0.03 Absolute Neuts (auto) 7.0 H Absolute Nucleated RBC 0.030 H Nucleated RBC % 0.3 H Sodium 141 Potassium 3.9 Chloride 114 H Carbon Dioxide 21 L Anion Gap 6 BUN 29 H Creatinine 1.20 Estim Creat Clear Calc 39 Estimated GFR 57 L Glucose 77 POC Capillary Glucose 79 Calcium 7.7 L Total Bilirubin 1.0 AST 32 ALT 14 Alkaline Phosphatase 45 Total Protein 6.0 L Albumin 2.8 L Imaging Radiologist's impression: CA echo doppler color flow: Summary 1. Complete two-dimensional, color flow and Doppler transthoracic echocardiogram is performed. 2. Left ventricular chamber dimension is normal. 3. Left ventricular systolic function is normal, estimated at 65-70%. 4. The left ventricular diastolic function is normal. 5. E/e' 7 is not elevated. 6. Atrial fibrillation. 7. Left atrial chamber dimension is moderately enlarged. 8. Right atrial chamber dimension is mildly enlarged. 9. There is mild aortic valve sclerosis. 10. There is trace mitral valve regurgitation. 11. There is mild tricuspid valve regurgitation. 12. No pulmonary hypertension, estimated pulmonary arterial systolic pressure is 32 mmHg. ECG Interpretation: 07/15/24 09:44:07= Rate 92 VT 0 QRSd 72 QT 362 QTc 449. ATRIAL FIBRILLATION ABNORMAL RHYTHM ECG Compared to ECG 07/14/2024 09:48:58 Ventricular premature complex(es) no longer present Aberrant conduction of supraventricular beat(s) no longer present T-wave abnormality no longer present Hospitalist MIPS Advance Care Plan I have confirmed that the patient's Advanced Care Plan is present, code status is documented, or surrogate decision maker is listed in patient medical record.: Yes Medication Reconciliation I have utilized all available resources to obtain, update and review the patients current medications (includes all prescriptions, OTC, herbals, cannabis, and nutritional supplements).: Yes
[2024-07-15] MEDS: METOPROLOL SUCCINATE EXT REL 25 MG TABCR PO (08:41)
--- NOTE | 2024-07-15 08:54 | ECG_ITS ---
Test Date: 2024-07-15 09:44:07 Measurements Intervals [place] Rate: 92 P: 0 UT: 0 QRS: -5 QRSD: 72 T: 9 QT: 362 QTc: 449 Interpretive Statements ATRIAL FIBRILLATION NONSPECIFIC ST & T-WAVE ABNORMALITY Compared to ECG 07/14/2024 09:48:58 RVR NO LONGER PRESENT Electronically Signed On 07-16-2024 16:30:11 CDT by Jose Maria Cartwright M.D.
--- NOTE | 2024-07-15 08:54 | PM.CNCAR ---
Assessment and Plan Assessment and plan (1) Paroxysmal A-fib: Code(s): I48.0 - Paroxysmal atrial fibrillation Status: Acute Assessment and Plan: [id number] 3. On aspirin 325 mg daily. Start Sotalol to prevent recurrence of PAF. Check EKG 1-2 hours post each dose as per protocol. Check echo. (2) Essential hypertension: Code(s): I10 - Essential (primary) hypertension Status: Acute Assessment and Plan: Stable. (3) Small bowel obstruction: Code(s): K56.609 - Unspecified intestinal obstruction, unspecified as to partial versus complete obstruction Status: Acute Assessment and Plan: Managed as per surgery service. (4) Tobacco use: Code(s): Z72.0 - Tobacco use Status: Chronic Assessment and Plan: Counseled regarding smoking cessation. History of Present Illness History of Present Illness Consult date/time: 07/15/24 08:54 Reason For Visit: SBO Narrative: 89 yr old man who is my regular cardiology patient and a patient of Dada Pierce NP, presents to ER with abdominal pain. He has a history of PAF in 2019 after exploratory laparotomy with recurrence, hypertension, dyslipidemia, smoking. Reports 2 days ago when he presented he had severe abdominal pain with vomiting. Today he is feeling better, no nausea or abdominal pain. He was found to have SBO. He was found to go into atrial fib with RVR, given Diltiazem IV and back to sinus rhythm. He was hospitalized on 12/07/23 with SBO, had short episode of PAF. He smokes 5-6 cigarettes per day. Able to walk a mile or more. Denies chest pain, sob, orthopnea, PND, edema, dizziness, palpitations. Cardiovascular Procedures Echo/MUGA:: 12/09/23 Echo: EF 65-70%, grade I diastolic dysfunction (E/e' 7), mild biatrial enlargement, mild MR. Electrophysiology:: 12/08/23 EKG: Sinus rhythm, borderline T wave abnormality. 12/08/23 EKG: Atrial fibrillation at 174 bpm, LVH. Review of Systems Review of Systems: All systems reviewed & are unremarkable except as noted in HPI and below Constitutional: Constitutional: Reports as per HPI, Denies chills and Denies fever(s) Cardiovascular: Cardiovascular: Reports as per HPI and Denies chest pain Respiratory: Respiratory: Reports as per HPI and Denies dyspnea Gastrointestinal: Gastrointestinal: Reports as per HPI and Reports abdominal pain Genitourinary: Genitourinary: Reports as per HPI and Denies dysuria Musculoskeletal: Musculoskeletal: Reports as per HPI Neurologic: Reports as per HPI, Denies dizziness and Denies syncope [facility] Past Medical History Medical History Osteoarthritis Erectile dysfunction Vasovagal near-syncope Osteoarthritis of joint of toe of right foot Nocturia Paroxysmal A-fib Brief episode of paroxysmal AFib following exploratory laparotomy in 2019 Hyperlipidemia HTN (hypertension) Surgical History Surgical History History of exploratory laparotomy x 4 in the past for small bowel volvulus (2015 x 2, 2017, and 2019) Family History Family History Sibling Cerebrovascular accident Hypertension Other Essential hypertension Social History Social History Social History: Patient lives with they have been together for almost 40 years. He has smoked as much as a pack of cigarettes per day but has cut down to 1 pack every 2.5 days. He has no interest in quitting smoking. He denies any alcohol use or illicit substance use. 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 He has 1 child. Code status: Full code Surrogate decision maker: Smoking packs per day: 1 Smoking cigarettes per day: 20.0 Years smoked: 70 Smoking pack-years: 70.00 Smoking status: Current every day smoker Tobacco type: cigarettes Second hand tobacco smoke exposure: No Alcohol intake: never Substance use: never Do You Feel Safe in your Home?: Yes Lack of Transportation: No Lack of Food: Never True Current Housing: Decline to Answer Concerned About Future Housing: No Difficulty Paying Gas/Electric Bills: No Difficulty Paying for Meds: No Currently Unemployed: No Education: High School Diploma/GED Difficulty w/ Childcare or Family Care: No Gender identity (if verbalized by the patient): Male Sexual Orientation (if Verbalized by the Patient): Straight or Heterosexual Spiritual care concerns: No Agree to blood products: Yes Meds Home Medications and Allergies Home Medications ?Medication ?Instructions ?Recorded ?Confirmed ?Type losartan 50 mg tablet 50 mg PO DAILY 08/09/24 03/15/25 History metoprolol succinate 25 mg 25 mg PO DAILY #30 tabs 12/28/23 07/13/24 Rx tablet,extended release 24 hr aspirin 325 mg tablet 325 mg PO DAILY 04/01/24 07/13/24 History latanoprost 0.005 % eye drops 1 drp EACH EYE QHS 04/01/24 07/13/24 History Allergies Allergy/AdvReac Type Severity Reaction Status Date / Time No Known Drug Allergies Allergy Unknown Other Verified 06/27/24 11:04 Vital Signs Vital Signs - 24 hr 07/14/24 09:22 07/14/24 09:39 07/14/24 09:39 Temperature Pulse Rate 174 H Respiratory Rate Blood Pressure 97/60 L Pulse Oximetry Oxygen Delivery Room Air 07/14/24 11:26 07/14/24 12:05 07/14/24 12:22 Temperature Pulse Rate 115 H 121 H 104 H Respiratory Rate Blood Pressure Pulse Oximetry Oxygen Delivery 07/14/24 14:00 07/14/24 16:00 07/14/24 16:13 Temperature 98.0 F Pulse Rate 87 125 H 102 H Respiratory Rate 19 Blood Pressure 115/82 Pulse Oximetry 98 Oxygen Delivery 07/14/24 20:00 07/14/24 20:00 07/14/24 21:24 Temperature 97.6 F Pulse Rate 130 H 82 Respiratory Rate 16 Blood Pressure 96/62 L Pulse Oximetry 98 Oxygen Delivery Room Air 07/15/24 00:00 07/15/24 04:00 07/15/24 06:00 Temperature 97.4 F L Pulse Rate 106 H 94 96 Respiratory Rate 16 Blood Pressure 134/71 Pulse Oximetry 97 Oxygen Delivery 07/15/24 08:40 07/15/24 08:41 Temperature Pulse Rate 119 H Respiratory Rate Blood Pressure 115/79 Pulse Oximetry Oxygen Delivery Exam Const: General: cooperative, healthy appearing and comfortable Resp: Auscultation: clear to auscultation bilaterally, no crackles, no rales, no rhonchi and no wheezes Cardio: Rate: tachycardic Rhythm: regular rhythm Heart sounds: no murmurs Peripheral pulses: dorsalis pedis present GI: GI Palp: No abdominal tenderness and Yes Soft to palpation Neuro: General: oriented to person, oriented to place and oriented to time Extrem: Right lower extremity: no edema Left lower extremity: no edema Results Labs and Meds 07/15/24 04:59 07/15/24 04:59 Lab results: Cardiac Enzymes 07/15/24 Range/Units 04:59 AST 32 (17-59) U/L CBC 07/15/24 Range/Units 04:59 WBC 10.8 H (4.5-10.0) K/mm3 RBC 2.66 L (4.6-6.20) M/mm3 Hgb 8.1 L (14.0-18.0) g/dL Hct 25.7 L (42.0-52.0) % Plt Count 172 (150-375) k/mm3 Lymph # (Auto) 2.64 (0.9-3.2) K/mm3 [place] # (Auto) 1.0 H (0.1-0.6) K/mm3 Eos # (Auto) 0.1 (0-0.3) K/mm3 Baso # (Auto) 0.0 (0.0-0.1) K/mm3 Comprehensive Metabolic Panel 07/15/24 Range/Units 04:59 Sodium 141 (137-145) mmol/L Potassium 3.9 (3.4-5.0) mmol/L Chloride 114 H (98-107) mmol/L Carbon Dioxide 21 L (22-30) mmol/L BUN 29 H (9-20) mg/dL Creatinine 1.20 (0.7-1.3) mg/dL Glucose 77 (65-110) mg/dL Calcium 7.7 L (8.4-10.2) mg/dL AST 32 (17-59) U/L ALT 14 (6-50) U/L Alkaline Phosphatase 45 (38-126) U/L Total Protein 6.0 L (6.3-8.2) g/dL Albumin 2.8 L (3.5-5.1) g/dL Intake and Output 07/14/24 07/15/24 07/15/24 23:59 07:59 15:59 Intake Total 822.9 1100 Output Total 0 600 Balance 822.9 500 Intake: IV 822.9 1100 Sodium Chloride 0.9% IV 1,000 772.9 1000 ml @ 125 mls/hr IV CONT .Q8H [facility] Rx#:[id number] Piperacillin/Gt 2.25G/Ns 50Ml 50 100 2.25 gm In 50 ml @ 100 mls/hr IVPB Q6HR [facility] Rx#:[id number] Output: Urine 0 600 Stool 0 Other: Number of Bowel Movements Today 1
[2024-07-15 09:57] LABS: Magnesium 2.2 mg/dL (1.6-2.3)
[2024-07-15] MEDS: SOTALOL HCL 80 MG TABLET PO ×2 (09:58→20:20)
--- NOTE | 2024-07-15 11:09 | PM.PNGS ---
Progress Note: A&P Assessment and Plan (1) Small bowel obstruction: Code(s): K56.609 - Unspecified intestinal obstruction, unspecified as to partial versus complete obstruction Status: Acute Assessment and Plan: Recurrent partial small-bowel obstruction. Seems to be resolving. No abdominal distention or abdominal pain today. His abdominal exam is benign. White blood cell count continues to trend down to 10,000 today. Will try a clear liquid diet. If he fails liquids, then we will plan to order a water-soluble small-bowel follow-through. Continue IV antibiotics for now and close observation with serial abdominal exams. Plan I have discussed the patient's case and plan of care with Dr. Awan. Subjective Subjective Date/Time Seen: 07/15/24 11:09 Patient reports: no new complaints, feels better, flatus and bowel movement (x1 yesterday) Interval history: Patient denies any abdominal pain. No nausea or vomiting. He is passing lots of flatus today and had 1 bowel movement yesterday. Exam Const: General: comfortable and no acute distress Orientation/consciousness: patient oriented x3 GI: Inspection: non-distended GI Palp: Yes Soft to palpation, No Tenderness to palpation present (GI), No Guarding due to palpation present (GI) and No Rebound tenderness present Auscultation: normal bowel sounds Objective Data Vital Signs Vital Signs: Vital Signs - 24 hr 07/14/24 11:26 07/14/24 12:05 07/14/24 12:22 Temperature Pulse Rate 115 H 121 H 104 H Respiratory Rate Blood Pressure Pulse Oximetry Oxygen Delivery 07/14/24 14:00 07/14/24 16:00 07/14/24 16:13 Temperature 98.0 F Pulse Rate 87 125 H 102 H Respiratory Rate 19 Blood Pressure 115/82 Pulse Oximetry 98 Oxygen Delivery 07/14/24 20:00 07/14/24 20:00 07/14/24 21:24 Temperature 97.6 F Pulse Rate 130 H 82 Respiratory Rate 16 Blood Pressure 96/62 L Pulse Oximetry 98 Oxygen Delivery Room Air 07/15/24 00:00 07/15/24 04:00 07/15/24 06:00 Temperature 97.4 F L Pulse Rate 106 H 94 96 Respiratory Rate 16 Blood Pressure 134/71 Pulse Oximetry 97 Oxygen Delivery 07/15/24 08:35 07/15/24 08:35 07/15/24 08:40 Temperature Pulse Rate 95 Respiratory Rate Blood Pressure 115/79 Pulse Oximetry Oxygen Delivery Room Air 07/15/24 08:41 07/15/24 09:58 Temperature Pulse Rate 119 H 110 H Respiratory Rate Blood Pressure Pulse Oximetry Oxygen Delivery Intake/Output Intake/Output: Intake & Output 07/12/24 07/13/24 07/14/24 07/15/24 23:59 23:59 23:59 23:59 Intake Total 2989.6 2972.9 1100 Output Total 200 600 600 Balance 2789.6 2372.9 500 Meds/Results Medications: Active Medications Generic Name Dose Route Start Last Admin Trade Name Freq PRN Reason Stop Dose Admin Acetaminophen 650 mg 07/13/24 04:03 Acetaminophen 650 Mg Suppository RECTAL Q6H PRN Mild Pain (1-3) or Fever Dextrose 12.5 gm 07/13/24 04:03 Dextrose 50% 25 Gm/50 Ml Syringe IV PUSH PRN PRN Hypoglycemia Protocol Glucagon 1 mg 07/13/24 04:03 Glucagon For Inj 1 Mg Vial IM PRN PRN Hypoglycemia Protocol Glucose 15 gm 07/13/24 04:03 Glucose Oral Gel 15 Gm Of Glucse In 37.5 Gm Tube PO PRN PRN Hypoglycemia Protocol Sodium Chloride 1,000 mls @ 125 mls/hr 07/13/24 03:55 07/15/24 05:02 Normal Saline Iv IV CONT 125 mls/hr .Q8H VANESSA Administration Dextrose 1,000 mls @ 100 mls/hr 07/13/24 04:03 Dextrose 5% 1,000 Ml IVPB PRN PRN Hypoglycemia Protocol Piperacillin Sod/Tazobactam Sod 2.25 gm in 50 mls @ 100 mls/hr 07/13/24 12:00 07/15/24 05:32 Zosyn 2.25 Gm/Ns 50 Ml IVPB Infused Q6HR VANESSA Infusion Metoprolol Succinate 25 mg 07/14/24 09:00 07/15/24 08:41 Metoprolol Succinate Ext Rel 25 Mg Tabcr PO 25 mg QAM VANESSA Administration Metoprolol Tartrate 5 mg 07/13/24 12:06 Metoprolol Tartrate Inj 5 Mg/5 Ml Vial IV PUSH Q6HR PRN Tachycardia Morphine Sulfate 4 mg 07/13/24 04:03 Morphine Sulfate (*Crx) 4 Mg/Ml Inj IV PUSH Q2H PRN Pain Rated 7-10 Ondansetron HCl 4 mg 07/13/24 04:03 Ondansetron Inj 4 Mg/2 Ml Vial IV PUSH Q4H PRN Nausea Perflutren Lipid Microsphere 0 ml 07/14/24 13:40 Perflutren Lipid Microspheres 1.5 Ml Vial Diluted To 10 Ml Total Volume IV PUSH 07/17/24 13:40 ONCE PRN adequate visualization Protocol Sotalol HCl 80 mg 07/15/24 09:00 07/15/24 09:58 Sotalol Hcl 80 Mg Tablet PO 80 mg Q12HR VANESSA Administration Radiology Results: ITS Impressions Chest X-Ray 07/12/24 23:24 IMPRESSION: No acute cardiopulmonary pathology. Abdomen/Pelvis CT 07/13/24 06:13 Impression: Small bowel obstruction, with transition point as detailed above. Probable underlying constipation. Abdomen X-Ray 07/13/24 11:13 Impression: NG tube side-port is just above the GE junction. Further advancement the stomach advised. Labs Labs: Laboratory Results - last 24 hr 07/14/24 07/15/24 19:54 04:59 WBC 10.8 H RBC 2.66 L Hgb 8.1 L Hct 25.7 L MCV 96.6 MCH 30.5 MCHC 31.5 L RDW 15.5 H Plt Count 172 MPV 10.6 H Immature Gran % (Auto) 0.3 Neut % (Auto) 64.9 Lymph % (Auto) 24.4 [place] % (Auto) 9.1 H Eos % (Auto) 1.0 Baso % (Auto) 0.3 Lymph # (Auto) 2.64 [place] # (Auto) 1.0 H Eos # (Auto) 0.1 Baso # (Auto) 0.0 Abs Immat Gran (auto) 0.03 Absolute Neuts (auto) 7.0 H Absolute Nucleated RBC 0.030 H Nucleated RBC % 0.3 H Sodium 141 Potassium 3.9 Chloride 114 H Carbon Dioxide 21 L Anion Gap 6 BUN 29 H Creatinine 1.20 Estim Creat Clear Calc 39 Estimated GFR 57 L Glucose 77 POC Capillary Glucose 79 Calcium 7.7 L Magnesium 2.2 Total Bilirubin 1.0 AST 32 ALT 14 Alkaline Phosphatase 45 Total Protein 6.0 L Albumin 2.8 L
--- NOTE | 2024-07-15 12:16 | ECG_ITS ---
Test Date: 2024-07-15 12:37:50 Measurements Intervals [place] Rate: 78 P: 0 GA: 0 QRS: -3 QRSD: 82 T: 15 QT: 397 QTc: 453 Interpretive Statements ATRIAL FIBRILLATION NONSPECIFIC ST & T-WAVE ABNORMALITY Compared to ECG 07/15/2024 09:44:07 NO SIGNIFICANT CHANGES Electronically Signed On 07-16-2024 16:36:32 CDT by Jose Maria Cartwright M.D.
--- NOTE | 2024-07-15 22:10 | ECG_ITS ---
Test Date: 2024-07-15 22:24:33 Measurements Intervals [place] Rate: 91 P: 0 [place]: 0 QRS: -3 QRSD: 79 T: 6 QT: 377 QTc: 464 Interpretive Statements ATRIAL FIBRILLATION NONSPECIFIC ST & T-WAVE ABNORMALITY Compared to ECG 07/15/2024 12:37:50 NO SIGNIFICANT CHANGES Electronically Signed On 07-16-2024 16:46:45 CDT by Jose Maria Cartwright M.D.
[2024-07-16] VITALS (18 sets, daily range): BP systolic 147–184; BP diastolic 72–96; PULSE 58–112; RESP 14–20; TEMP 36.6–36.8; O2SAT 97–98
--- NOTE | 2024-07-16 04:19 | PC.NURSE ---
This patient, Audie Ruiz, was received from [medical room 341 ] on 07/16/24 at 0400. Patient/family oriented to unit policies and routines.
[2024-07-16 05:25] LABS: Magnesium 2.1 mg/dL (1.6-2.3)
[2024-07-16] MEDS: SODIUM CHLORIDE 0.9% IV 1,000 ML 125 ML IV CONT (05:35)
[2024-07-16 05:43] LABS: Glucose Point of Care 98 mg/dl (65-105)
--- NOTE | 2024-07-16 07:48 | P.PNIM_ITS ---
Progress Note: A&P Assessment and Plan (1) Small bowel obstruction: Code(s): K56.609 - Unspecified intestinal obstruction, unspecified as to partial versus complete obstruction Status: Acute Assessment and Plan: - CT Scan: There are multiple dilated loops of small bowel. Transition point present in the midabdomen just right of midline with decompressed distal small bowel. Prominent stool throughout large bowel suggests underlying constipation. - Multiple previous SBOs and abdominal surgeries (, 2016, 2018) - Liquid diet, advance as able - Per Gen Surg, monitor symptoms and vitals at this time, patient is stable for time being - Continue IV antibiotics for now and close observation with serial abdominal exams. (2) Atrial fibrillation: Code(s): I48.91 - Unspecified atrial fibrillation Status: Acute Assessment and Plan: Keep serum potassium >4 and keep magnesium >2 Metoprolol 25mg PO intial dose Cardiology consulted, 80mg Sotatol q12hs (Last dose A.M. 07/17) Hold anticoagulation Echocardiogram: EF 65-70%, mod LAE, mild JOHN, trace MR, mild TR. 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 07/16/2024 Patient is sitting comfortably in bed upon examination. Continues to deny any chest pain, shortness of breath, abdominal pain, or urinary complaints. Continues to pass flatus, no bowel movement yet. Planning to advance diet as able. He was seen by cardiology this morning after they started Sotalol. Afib has now reverted back to Sinus rhythm. Will need to continue on Sotalol for 5 total doses (last dose on A.M. of 07/17). He was transferred to IMU due to initiation of Sotalol. Patient is otherwise stable. Plan for discharge tomorrow afternoon. Review of Systems Review of Systems: All systems reviewed & are unremarkable except as noted in HPI and below Exam Narrative: Gen - Eldery, ill appearing male in no acute respiratory distress who is nontoxic-appearing lying semi recumbent in bed HEENT - normocephalic. Atraumatic. Pupils equal round and reactive. Extraocul ar motions intact. Sclera clear and anicteric. Nares patent. Oropharynx was clear. No oral lesions. Moist mucous membranes. Tongue was midline. Neck - neck was supple. No dominant adenopathy, thyromegaly or masses. 2+ carotid upstrokes without bruits. Chest - lungs are clear to auscultation bilaterally. No wheezes or crackles. CV - tachycardia S1-S2. No murmurs gallops or rubs. Abd - abdomen was soft, slightly distended, diffusely tender. Positive bowel sounds. No organomegaly or masses. Ext - no clubbing, cyanosis or edema. 2+ DP pulses bilaterally. Neuro - patient is alert and oriented x4. Psych - normal mood and affect. Patient is pleasant and cooperative. Skin - warm and dry. No rashes noted. Objective Data Vital Signs Vital Signs: Vital Signs - 24 hr 07/15/24 08:35 07/15/24 08:35 07/15/24 08:40 Temperature Pulse Rate 95 Respiratory Rate Blood Pressure 115/79 Pulse Oximetry Oxygen Delivery Room Air 07/15/24 08:41 07/15/24 09:58 07/15/24 12:00 Temperature Pulse Rate 119 H 110 H 96 Respiratory Rate Blood Pressure Pulse Oximetry Oxygen Delivery 07/15/24 14:00 07/15/24 16:00 07/15/24 20:00 Temperature 97.7 F Pulse Rate 84 93 Respiratory Rate 16 Blood Pressure 129/69 Pulse Oximetry 98 Oxygen Delivery Room Air 07/15/24 20:00 07/15/24 21:47 07/16/24 00:00 Temperature 97.0 F L Pulse Rate 92 90 98 Respiratory Rate 20 Blood Pressure 162/95 H Pulse Oximetry 99 Oxygen Delivery 07/16/24 04:10 07/16/24 04:10 07/16/24 04:18 Temperature 98.3 F Pulse Rate 112 H 60 Respiratory Rate 20 Blood Pressure 147/94 H Pulse Oximetry 98 Oxygen Delivery Room Air 07/16/24 06:00 Temperature Pulse Rate 63 Respiratory Rate Blood Pressure Pulse Oximetry Oxygen Delivery Intake/Output Intake/Output: Intake & Output 07/13/24 07/14/24 07/15/24 07/16/24 23:59 23:59 23:59 23:59 Intake Total 2989.6 2972.9 3716.7 1000 Output Total 200 600 900 500 Balance 2789.6 2372.9 2816.7 500 Meds/Results Medications: Active Medications Generic Name Dose Route Start Last Admin Trade Name Freq PRN Reason Stop Dose Admin Acetaminophen 650 mg 07/13/24 04:03 Acetaminophen 650 Mg Suppository RECTAL Q6H PRN Mild Pain (1-3) or Fever Dextrose 12.5 gm 07/13/24 04:03 Dextrose 50% 25 Gm/50 Ml Syringe IV PUSH PRN PRN Hypoglycemia Protocol Glucagon 1 mg 07/13/24 04:03 Glucagon For Inj 1 Mg Vial IM PRN PRN Hypoglycemia Protocol Glucose 15 gm 07/13/24 04:03 Glucose Oral Gel 15 Gm Of Glucse In 37.5 Gm Tube PO PRN PRN Hypoglycemia Protocol Sodium Chloride 1,000 mls @ 125 mls/hr 07/13/24 03:55 07/16/24 05:35 Normal Saline Iv IV CONT 125 mls/hr .Q8H VANESSA Administration Dextrose 1,000 mls @ 100 mls/hr 07/13/24 04:03 Dextrose 5% 1,000 Ml IVPB PRN PRN Hypoglycemia Protocol Metoprolol Tartrate 5 mg 07/13/24 12:06 Metoprolol Tartrate Inj 5 Mg/5 Ml Vial IV PUSH Q6HR PRN Tachycardia Morphine Sulfate 4 mg 07/13/24 04:03 Morphine Sulfate (*Crx) 4 Mg/Ml Inj IV PUSH Q2H PRN Pain Rated 7-10 Ondansetron HCl 4 mg 07/13/24 04:03 Ondansetron Inj 4 Mg/2 Ml Vial IV PUSH Q4H PRN Nausea Perflutren Lipid Microsphere 0 ml 07/14/24 13:40 Perflutren Lipid Microspheres 1.5 Ml Vial Diluted To 10 Ml Total Volume IV PUSH 07/17/24 13:40 ONCE PRN adequate visualization Protocol Sotalol HCl 80 mg 07/15/24 09:00 07/15/24 20:20 Sotalol Hcl 80 Mg Tablet PO 80 mg Q12HR VANESSA Administration Radiology Results: ITS Impressions Chest X-Ray 07/12/24 23:24 IMPRESSION: No acute cardiopulmonary pathology. Abdomen/Pelvis CT 07/13/24 06:13 Impression: Small bowel obstruction, with transition point as detailed above. Probable underlying constipation. Abdomen X-Ray 07/13/24 11:13 Impression: NG tube side-port is just above the GE junction. Further advancement the stomach advised. Labs Labs: Laboratory Results - last 24 hr 07/15/24 07/15/24 07/16/24 04:59 21:16 04:41 POC Capillary Glucose 98 Magnesium 2.2 2.1
--- NOTE | 2024-07-16 07:57 | PM.PNCARD ---
Progress Note: A&P Assessment and Plan (1) Paroxysmal A-fib: Code(s): I48.0 - Paroxysmal atrial fibrillation Status: Acute Assessment and Plan: In Sinus rhythm now. [id number] 3. On aspirin 325 mg daily. Start Sotalol to prevent recurrence of PAF. Check EKG 1-2 hours post each dose as per protocol. 07/15/24 Echo: EF 65-70%, mod LAE, mild JOHN, trace MR, mild TR. After 5 doses of Sotalol then he may be d/c home from cardiology standpoint. (2) Essential hypertension: Code(s): I10 - Essential (primary) hypertension Status: Acute Assessment and Plan: Stable. (3) Small bowel obstruction: Code(s): K56.609 - Unspecified intestinal obstruction, unspecified as to partial versus complete obstruction Status: Acute Assessment and Plan: Managed as per surgery service. (4) Tobacco use: Code(s): Z72.0 - Tobacco use Status: Chronic Assessment and Plan: Counseled regarding smoking cessation. Subjective Date/time seen: 07/16/24 07:57 Interval history: Denies chest pain or sob. Denies abdominal pain today. Exam Const: General: cooperative, healthy appearing and comfortable Orientation/consciousness: oriented to person, oriented to place and oriented to time Resp: Auscultation: clear to auscultation bilaterally, no crackles, no rales, no rhonchi and no wheezes Cardio: Rate: regular rate Rhythm: regular rhythm Heart sounds: no murmurs Peripheral pulses: dorsalis pedis present Neuro: General: oriented to person, oriented to place and oriented to time Extrem: Right lower extremity: no edema Left lower extremity: no edema Objective Data Vital Signs Vital Signs: Vital Signs - 24 hr 07/15/24 08:35 07/15/24 08:35 07/15/24 08:40 Temperature Pulse Rate 95 Respiratory Rate Blood Pressure 115/79 Pulse Oximetry Oxygen Delivery Room Air 07/15/24 08:41 07/15/24 09:58 07/15/24 12:00 Temperature Pulse Rate 119 H 110 H 96 Respiratory Rate Blood Pressure Pulse Oximetry Oxygen Delivery 07/15/24 14:00 07/15/24 16:00 07/15/24 20:00 Temperature 97.7 F Pulse Rate 84 93 Respiratory Rate 16 Blood Pressure 129/69 Pulse Oximetry 98 Oxygen Delivery Room Air 07/15/24 20:00 07/15/24 21:47 07/16/24 00:00 Temperature 97.0 F L Pulse Rate 92 90 98 Respiratory Rate 20 Blood Pressure 162/95 H Pulse Oximetry 99 Oxygen Delivery 07/16/24 04:10 07/16/24 04:10 07/16/24 04:18 Temperature 98.3 F Pulse Rate 112 H 60 Respiratory Rate 20 Blood Pressure 147/94 H Pulse Oximetry 98 Oxygen Delivery Room Air 07/16/24 06:00 Temperature Pulse Rate 63 Respiratory Rate Blood Pressure Pulse Oximetry Oxygen Delivery Intake/Output Intake/Output: Intake & Output 07/13/24 07/14/24 07/15/24 07/16/24 23:59 23:59 23:59 23:59 Intake Total 2989.6 2972.9 3716.7 1000 Output Total 200 600 900 500 Balance 2789.6 2372.9 2816.7 500 Meds/Results Medications: Active Medications Generic Name Dose Route Start Last Admin Trade Name Freq PRN Reason Stop Dose Admin Acetaminophen 650 mg 07/13/24 04:03 Acetaminophen 650 Mg Suppository RECTAL Q6H PRN Mild Pain (1-3) or Fever Dextrose 12.5 gm 07/13/24 04:03 Dextrose 50% 25 Gm/50 Ml Syringe IV PUSH PRN PRN Hypoglycemia Protocol Glucagon 1 mg 07/13/24 04:03 Glucagon For Inj 1 Mg Vial IM PRN PRN Hypoglycemia Protocol Glucose 15 gm 07/13/24 04:03 Glucose Oral Gel 15 Gm Of Glucse In 37.5 Gm Tube PO PRN PRN Hypoglycemia Protocol Sodium Chloride 1,000 mls @ 125 mls/hr 07/13/24 03:55 07/16/24 05:35 Normal Saline Iv IV CONT 125 mls/hr .Q8H VANESSA Administration Dextrose 1,000 mls @ 100 mls/hr 07/13/24 04:03 Dextrose 5% 1,000 Ml IVPB PRN PRN Hypoglycemia Protocol Metoprolol Tartrate 5 mg 07/13/24 12:06 Metoprolol Tartrate Inj 5 Mg/5 Ml Vial IV PUSH Q6HR PRN Tachycardia Morphine Sulfate 4 mg 07/13/24 04:03 Morphine Sulfate (*Crx) 4 Mg/Ml Inj IV PUSH Q2H PRN Pain Rated 7-10 Ondansetron HCl 4 mg 07/13/24 04:03 Ondansetron Inj 4 Mg/2 Ml Vial IV PUSH Q4H PRN Nausea Perflutren Lipid Microsphere 0 ml 07/14/24 13:40 Perflutren Lipid Microspheres 1.5 Ml Vial Diluted To 10 Ml Total Volume IV PUSH 07/17/24 13:40 ONCE PRN adequate visualization Protocol Sotalol HCl 80 mg 07/15/24 09:00 07/15/24 20:20 Sotalol Hcl 80 Mg Tablet PO 80 mg Q12HR VANESSA Administration Radiology Results: ITS Impressions Chest X-Ray 07/12/24 23:24 IMPRESSION: No acute cardiopulmonary pathology. Abdomen/Pelvis CT 07/13/24 06:13 Impression: Small bowel obstruction, with transition point as detailed above. Probable underlying constipation. Abdomen X-Ray 07/13/24 11:13 Impression: NG tube side-port is just above the GE junction. Further advancement the stomach advised. Labs Labs: Laboratory Results - last 24 hr 07/15/24 07/15/24 07/16/24 04:59 21:16 04:41 POC Capillary Glucose 98 Magnesium 2.2 2.1
[2024-07-16 08:55] LABS: Basophils Percent Auto 0.4 % (0.2-1.2); Eosinophils Absolute Auto 0.1 K/mm3 (0-0.3); Eosinophils Percent Auto 1.7 % (0-4.4); Hematocrit 27.7 % (42.0-52.0); Hemoglobin 8.7 g/dL (14.0-18.0); Immature Granulocyte Absolute 0.02 K/mm3 (0.00-0.031); Immature Granulocyte Percent A 0.3 % (0-0.5); Lymphocytes Absolute Auto 1.94 K/mm3 (0.9-3.2); Lymphocytes Percent Auto 25.1 % (18.3-44.2); Mean Corpuscular HGB Conc 31.4 g/dl (32-36); Mean Corpuscular Volume 98.6 fl (80-100); Mean Platelet Volume 12.3 fl (7.4-10.4); Monocytes Absolute Auto 0.8 K/mm3 (0.1-0.6); Monocytes Percent Auto 10.5 % (2.6-8.5); Neutrophils Absolute Auto 4.8 K/mm3 (1.3-6.7); Nucleated Red Blood Cells Perc 0.4 % (0.0-0.2); Platelet Count Result 149 k/mm3 (150-375); Red Blood Count 2.81 M/mm3 (4.6-6.20); Red Cell Distribution Width 15.5 % (11.5-14.5); White Blood Count 7.7 K/mm3 (4.5-10.0)
[2024-07-16 09:02] LABS: Alanine Aminotransferase 14 U/L (6-50); Albumin Level 2.7 g/dL (3.5-5.1); Alkaline Phosphatase 46 U/L (38-126); Anion Gap 6 mmol/L (4-12); Aspartate Amino Transferase 29 U/L (17-59); Bilirubin,Total 0.8 mg/dL (0.2-1.3); Blood Urea Nitrogen 26 mg/dL (9-20); Carbon Dioxide 23 mmol/L (22-30); Chloride 112 mmol/L (98-107); Estimated CRCL calculation 48 ml/min; Estimated Glomerular Filt Rate > 60; Glucose 77 mg/dL (65-110); Potassium 3.9 mmol/L (3.4-5.0); Sodium 141 mmol/L (137-145)
[2024-07-16] MEDS: SOTALOL HCL 80 MG TABLET PO ×2 (09:32→20:48)
--- NOTE | 2024-07-16 11:30 | ECG_ITS ---
Test Date: 2024-07-16 11:38:43 Measurements Intervals [place] Rate: 59 P: 38 OR: 165 QRS: 4 QRSD: 96 T: 10 QT: 477 QTc: 475 Interpretive Statements SINUS BRADYCARDIA PROLONGED QT INTERVAL ABNORMAL ECG Electronically Signed On 07-17-2024 12:06:08 CDT by Tuan Manzo M.D.
--- NOTE | 2024-07-16 11:45 | PC.NURSE ---
EKG READ TO DR FERRERA. DR FERRERA NOTIFIED OF PROLONGED QT INTERTVAL OF 477. AWARE, STATES ACCEPTABLE. NO NEW ORDERS, CONT TO MONITOR
[2024-07-16] MEDS: LOSARTAN POTASSIUM 50 MG TABLET PO (12:33)
--- NOTE | 2024-07-16 14:29 | P.PNGS_ITS ---
Progress Note: A&P Assessment and Plan (1) Small bowel obstruction: Code(s): K56.609 - Unspecified intestinal obstruction, unspecified as to partial versus complete obstruction Status: Acute Assessment and Plan: Resolving recurrent partial small-bowel obstruction. He is tolerating clear liquids and was advanced to full liquids for lunch. His abdominal exam is benign and bowels are moving. White blood cell count normalized. IV antibiotics were stopped yesterday. Okay to advance to a solid diet later today. Once he is tolerating solid food, he would be stable for discharge from a surgical standpoint. Plan I have discussed the patient's case and plan of care with Dr. Awan. Subjective Subjective Date/Time Seen: 07/16/24 14:29 Patient reports: no new complaints, feels better, tolerating liquids well, flatus and bowel movement (early this morning) Interval history: Feeling well. No abdominal pain, nausea, or vomiting. Large BM early this morning. Moved to IMU for telemetry as he was started on Sotalol by Cardiology. Exam Const: General: comfortable and no acute distress Orientation/consciousness: patient oriented x3 GI: Inspection: non-distended GI Palp: Yes Soft to palpation, No Tenderness to palpation present (GI), No Guarding due to palpation present (GI) and No Rebound tenderness present Auscultation: normal bowel sounds Objective Data Vital Signs Vital Signs: Vital Signs - 24 hr 07/15/24 16:00 07/15/24 20:00 07/15/24 20:00 Temperature Pulse Rate 93 92 Respiratory Rate Blood Pressure Pulse Oximetry Oxygen Delivery Room Air 07/15/24 21:47 07/16/24 00:00 07/16/24 04:10 Temperature 97.0 F L Pulse Rate 90 98 112 H Respiratory Rate 20 Blood Pressure 162/95 H Pulse Oximetry 99 Oxygen Delivery 07/16/24 04:10 07/16/24 04:18 07/16/24 06:00 Temperature 98.3 F Pulse Rate 60 63 Respiratory Rate 20 Blood Pressure 147/94 H Pulse Oximetry 98 Oxygen Delivery Room Air 07/16/24 07:41 07/16/24 08:00 07/16/24 09:32 Temperature 98.1 F Pulse Rate 66 60 67 Respiratory Rate 14 Blood Pressure 161/80 H Pulse Oximetry 97 Oxygen Delivery 07/16/24 10:00 07/16/24 11:46 07/16/24 12:00 Temperature 97.8 F Pulse Rate 60 60 69 Respiratory Rate 18 Blood Pressure 181/84 H Pulse Oximetry 98 Oxygen Delivery Intake/Output Intake/Output: Intake & Output 07/13/24 07/14/24 07/15/24 07/16/24 23:59 23:59 23:59 23:59 Intake Total 2989.6 2972.9 3716.7 1240 Output Total 200 600 900 500 Balance 2789.6 2372.9 2816.7 740 Meds/Results Medications: Active Medications Generic Name Dose Route Start Last Admin Trade Name Freq PRN Reason Stop Dose Admin Acetaminophen 650 mg 07/16/24 12:49 Acetaminophen 325 Mg Tablet PO Q6H PRN Mild Pain (1-3) or Fever Dextrose 12.5 gm 07/13/24 04:03 Dextrose 50% 25 Gm/50 Ml Syringe IV PUSH PRN PRN Hypoglycemia Protocol Glucagon 1 mg 07/13/24 04:03 Glucagon For Inj 1 Mg Vial IM PRN PRN Hypoglycemia Protocol Glucose 15 gm 07/13/24 04:03 Glucose Oral Gel 15 Gm Of Glucse In 37.5 Gm Tube PO PRN PRN Hypoglycemia Protocol Dextrose 1,000 mls @ 100 mls/hr 07/13/24 04:03 Dextrose 5% 1,000 Ml IVPB PRN PRN Hypoglycemia Protocol Losartan Potassium 50 mg 07/16/24 12:30 07/16/24 12:33 Losartan Potassium 50 Mg Tablet PO 50 mg DAILY VANESSA Administration Metoprolol Tartrate 5 mg 07/13/24 12:06 Metoprolol Tartrate Inj 5 Mg/5 Ml Vial IV PUSH Q6HR PRN Tachycardia Morphine Sulfate 4 mg 07/13/24 04:03 Morphine Sulfate (*Crx) 4 Mg/Ml Inj IV PUSH Q2H PRN Pain Rated 7-10 Ondansetron HCl 4 mg 07/13/24 04:03 Ondansetron Inj 4 Mg/2 Ml Vial IV PUSH Q4H PRN Nausea Perflutren Lipid Microsphere 0 ml 07/14/24 13:40 Perflutren Lipid Microspheres 1.5 Ml Vial Diluted To 10 Ml Total Volume IV PUSH 07/17/24 13:40 ONCE PRN adequate visualization Protocol Sotalol HCl 80 mg 07/15/24 09:00 07/16/24 09:32 Sotalol Hcl 80 Mg Tablet PO 80 mg Q12HR VANESSA Administration Radiology Results: ITS Impressions Chest X-Ray 07/12/24 23:24 IMPRESSION: No acute cardiopulmonary pathology. Abdomen/Pelvis CT 07/13/24 06:13 Impression: Small bowel obstruction, with transition point as detailed above. Probable underlying constipation. Abdomen X-Ray 07/13/24 11:13 Impression: NG tube side-port is just above the GE junction. Further advancement the stomach advised. Labs Labs: Laboratory Results - last 24 hr 07/15/24 07/16/24 21:16 04:41 WBC 7.7 RBC 2.81 L Hgb 8.7 L Hct 27.7 L MCV 98.6 MCH 31.0 MCHC 31.4 L RDW 15.5 H Plt Count 149 L MPV 12.3 H Immature Gran % (Auto) 0.3 Neut % (Auto) 62.0 Lymph % (Auto) 25.1 [place] % (Auto) 10.5 H Eos % (Auto) 1.7 Baso % (Auto) 0.4 Lymph # (Auto) 1.94 [place] # (Auto) 0.8 H Eos # (Auto) 0.1 Baso # (Auto) 0.0 Abs Immat Gran (auto) 0.02 Absolute Neuts (auto) 4.8 Absolute Nucleated RBC 0.030 H Nucleated RBC % 0.4 H Sodium 141 Potassium 3.9 Chloride 112 H Carbon Dioxide 23 Anion Gap 6 BUN 26 H Creatinine 1.06 Estim Creat Clear Calc 48 Estimated GFR > 60 Glucose 77 POC Capillary Glucose 98 Calcium 8.0 L Magnesium 2.1 Total Bilirubin 0.8 AST 29 ALT 14 Alkaline Phosphatase 46 Total Protein 6.0 L Albumin 2.7 L
[2024-07-16] MEDS: METOPROLOL TARTRATE INJ 5 MG/5 ML VIAL IV PUSH (20:49)
--- NOTE | 2024-07-16 22:20 | ECG_ITS ---
Test Date: 2024-07-16 23:01:26 Measurements Intervals [place] Rate: 58 P: 37 OR: 157 QRS: -8 QRSD: 86 T: 0 QT: 450 QTc: 444 Interpretive Statements SINUS BRADYCARDIA NONSPECIFIC T-WAVE ABNORMALITY ABNORMAL ECG Electronically Signed On 07-17-2024 12:24:12 CDT by Tuan Manzo M.D.
[2024-07-17] VITALS (12 sets, daily range): BP systolic 156–187; BP diastolic 75–97; PULSE 57–81; RESP 16–18; TEMP 36.6–36.8; O2SAT 96–100
[2024-07-17 04:52] LABS: Magnesium 1.9 mg/dL (1.6-2.3)
[2024-07-17] MEDS: hydrALAZINE HCL 20 MG/ML VIAL 10 MG IV PUSH (06:17)
--- NOTE | 2024-07-17 08:11 | PM.PNCARD ---
Progress Note: A&P Assessment and Plan (1) Paroxysmal A-fib: Code(s): I48.0 - Paroxysmal atrial fibrillation Status: Acute Assessment and Plan: In Sinus rhythm now. [id number] 3. On aspirin 325 mg daily. Started Sotalol to prevent recurrence of PAF. Check EKG 1-2 hours post each dose as per protocol. 07/15/24 Echo: EF 65-70%, mod LAE, mild JOHN, trace MR, mild TR. After 5 doses of Sotalol then he may be d/c home from cardiology standpoint. F/U with me in 1-2 weeks. (2) Essential hypertension: Code(s): I10 - Essential (primary) hypertension Status: Acute Assessment and Plan: Stable. (3) Small bowel obstruction: Code(s): K56.609 - Unspecified intestinal obstruction, unspecified as to partial versus complete obstruction Status: Acute Assessment and Plan: Managed as per surgery service. (4) Tobacco use: Code(s): Z72.0 - Tobacco use Status: Chronic Assessment and Plan: Counseled regarding smoking cessation. Subjective Date/time seen: 07/17/24 08:11 Interval history: Denies chest pain or sob. Denies abdominal pain today. Exam Const: General: cooperative, healthy appearing and comfortable Orientation/consciousness: oriented to person, oriented to place and oriented to time Resp: Auscultation: clear to auscultation bilaterally, no crackles, no rales, no rhonchi and no wheezes Cardio: Rate: regular rate and tachycardic Rhythm: regular rhythm Heart sounds: no murmurs Peripheral pulses: dorsalis pedis present Neuro: General: oriented to person, oriented to place and oriented to time Extrem: Right lower extremity: no edema Left lower extremity: no edema Objective Data Vital Signs Vital Signs: Vital Signs - 24 hr 07/16/24 09:32 07/16/24 10:00 07/16/24 11:46 Temperature 97.8 F Pulse Rate 67 60 60 Respiratory Rate 18 Blood Pressure 181/84 H Pulse Oximetry 98 07/16/24 12:00 07/16/24 14:00 07/16/24 15:30 Temperature 98.1 F Pulse Rate 69 60 60 Respiratory Rate 18 Blood Pressure 179/96 H Pulse Oximetry 98 07/16/24 16:00 07/16/24 18:00 07/16/24 20:00 Temperature 98.0 F Pulse Rate 58 L 60 61 Respiratory Rate 18 Blood Pressure 184/88 H Pulse Oximetry 98 07/16/24 20:00 07/16/24 20:00 07/16/24 20:48 Temperature Pulse Rate 61 60 71 Respiratory Rate Blood Pressure Pulse Oximetry 07/16/24 20:49 07/16/24 23:43 07/17/24 00:00 Temperature 98.0 F Pulse Rate 71 58 L 61 Respiratory Rate 18 Blood Pressure 178/72 H Pulse Oximetry 97 07/17/24 02:00 07/17/24 04:00 07/17/24 04:00 Temperature 97.9 F Pulse Rate 62 67 63 Respiratory Rate 18 Blood Pressure 187/97 H Pulse Oximetry 96 07/17/24 06:00 07/17/24 06:57 07/17/24 07:36 Temperature 98.2 F Pulse Rate 65 68 Respiratory Rate 16 Blood Pressure 179/84 H 156/75 H Pulse Oximetry 98 Intake/Output Intake/Output: Intake & Output 07/14/24 07/15/24 07/16/24 07/17/24 23:59 23:59 23:59 23:59 Intake Total 2972.9 3716.7 1640 300 Output Total 600 900 850 400 Balance 2372.9 2816.7 790 -100 Meds/Results Medications: Active Medications Generic Name Dose Route Start Last Admin Trade Name Freq PRN Reason Stop Dose Admin Acetaminophen 650 mg 07/16/24 12:49 Acetaminophen 325 Mg Tablet PO Q6H PRN Mild Pain (1-3) or Fever Aspirin 325 mg 07/17/24 09:00 Aspirin 325 Mg Enteric Tablet PO [facility] Dextrose 12.5 gm 07/13/24 04:03 Dextrose 50% 25 Gm/50 Ml Syringe IV PUSH PRN PRN Hypoglycemia Protocol Glucagon 1 mg 07/13/24 04:03 Glucagon For Inj 1 Mg Vial IM PRN PRN Hypoglycemia Protocol Glucose 15 gm 07/13/24 04:03 Glucose Oral Gel 15 Gm Of Glucse In 37.5 Gm Tube PO PRN PRN Hypoglycemia Protocol Hydralazine HCl 10 mg 07/17/24 06:06 07/17/24 06:17 Hydralazine Hcl 20 Mg/Ml Vial IV PUSH 10 mg Q4HR PRN Administration Blood Pressure - High Dextrose 1,000 mls @ 100 mls/hr 07/13/24 04:03 Dextrose 5% 1,000 Ml IVPB PRN PRN Hypoglycemia Protocol Losartan Potassium 50 mg 07/16/24 12:30 07/16/24 12:33 Losartan Potassium 50 Mg Tablet PO 50 mg DAILY VANESSA Administration Metoprolol Tartrate 5 mg 07/13/24 12:06 07/16/24 20:49 Metoprolol Tartrate Inj 5 Mg/5 Ml Vial IV PUSH 5 mg Q6HR PRN Administration Tachycardia Morphine Sulfate 4 mg 07/13/24 04:03 Morphine Sulfate (*Crx) 4 Mg/Ml Inj IV PUSH Q2H PRN Pain Rated 7-10 Ondansetron HCl 4 mg 07/13/24 04:03 Ondansetron Inj 4 Mg/2 Ml Vial IV PUSH Q4H PRN Nausea Perflutren Lipid Microsphere 0 ml 07/14/24 13:40 Perflutren Lipid Microspheres 1.5 Ml Vial Diluted To 10 Ml Total Volume IV PUSH 07/17/24 13:40 ONCE PRN adequate visualization Protocol Sotalol HCl 80 mg 07/15/24 09:00 07/16/24 20:48 Sotalol Hcl 80 Mg Tablet PO 80 mg Q12HR VANESSA Administration Radiology Results: ITS Impressions Chest X-Ray 07/12/24 23:24 IMPRESSION: No acute cardiopulmonary pathology. Abdomen/Pelvis CT 07/13/24 06:13 Impression: Small bowel obstruction, with transition point as detailed above. Probable underlying constipation. Abdomen X-Ray 07/13/24 11:13 Impression: NG tube side-port is just above the GE junction. Further advancement the stomach advised. Labs Labs: Laboratory Results - last 24 hr 07/16/24 07/17/24 04:41 03:47 WBC 7.7 RBC 2.81 L Hgb 8.7 L Hct 27.7 L MCV 98.6 MCH 31.0 MCHC 31.4 L RDW 15.5 H Plt Count 149 L MPV 12.3 H Immature Gran % (Auto) 0.3 Neut % (Auto) 62.0 Lymph % (Auto) 25.1 [place] % (Auto) 10.5 H Eos % (Auto) 1.7 Baso % (Auto) 0.4 Lymph # (Auto) 1.94 [place] # (Auto) 0.8 H Eos # (Auto) 0.1 Baso # (Auto) 0.0 Abs Immat Gran (auto) 0.02 Absolute Neuts (auto) 4.8 Absolute Nucleated RBC 0.030 H Nucleated RBC % 0.4 H Sodium 141 Potassium 3.9 Chloride 112 H Carbon Dioxide 23 Anion Gap 6 BUN 26 H Creatinine 1.06 Estim Creat Clear Calc 48 Estimated GFR > 60 Glucose 77 Calcium 8.0 L Magnesium 1.9 Total Bilirubin 0.8 AST 29 ALT 14 Alkaline Phosphatase 46 Total Protein 6.0 L Albumin 2.7 L
[2024-07-17] MEDS: ASPIRIN 325 MG ENTERIC TABLET PO (08:59)
[2024-07-17] MEDS: SOTALOL HCL 80 MG TABLET PO (09:00)
[2024-07-17] MEDS: LOSARTAN POTASSIUM 50 MG TABLET PO (09:00)
--- NOTE | 2024-07-17 11:00 | ECG_ITS ---
Test Date: 2024-07-17 11:19:51 Measurements Intervals [place] Rate: 53 P: 19 MS: 147 QRS: 3 QRSD: 90 T: 6 QT: 485 QTc: 457 Interpretive Statements SINUS BRADYCARDIA PROLONGED QT INTERVAL ABNORMAL ECG Compared to ECG 07/16/2024 23:01:26 Prolonged QT interval now present T-wave abnormality no longer present Electronically Signed On 07-17-2024 12:55:10 CDT by Tuan Manzo M.D.
--- NOTE | 2024-07-17 11:08 | P.PNIM_ITS ---
Progress Note: A&P Assessment and Plan (1) Small bowel obstruction: Code(s): K56.609 - Unspecified intestinal obstruction, unspecified as to partial versus complete obstruction Status: Acute Assessment and Plan: - CT Scan: There are multiple dilated loops of small bowel. Transition point present in the midabdomen just right of midline with decompressed distal small bowel. Prominent stool throughout large bowel suggests underlying constipation. - Multiple previous SBOs and abdominal surgeries (2015x2, 2017, 2019) -full liquid diet - Per Gen Surg, monitor symptoms and vitals at this time, patient is stable for time being - Continue IV antibiotics for now and close observation with serial abdominal exams. (2) Atrial fibrillation: Code(s): I48.91 - Unspecified atrial fibrillation Status: Acute Assessment and Plan: Keep serum potassium >4 and keep magnesium >2 Metoprolol 25mg PO intial dose Cardiology consulted, 80mg Sotatol q12hs (Last dose A.M. 07/17) Hold anticoagulation Echocardiogram: EF 65-70%, mod LAE, mild JOHN, trace MR, mild TR. Cardiology consulted [id number] 3. On aspirin 325 mg daily. Start Sotalol to prevent recurrence of PAF on 07/15. Check EKG 1-2 hours post each dose as per protocol. After 5 doses (07/19) of Sotalol then he may be d/c home from cardiology standpoint. 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 After 5 doses (07/19) of Sotalol then he may be d/c home from cardiology standpoint. Review of Systems Review of Systems: All systems reviewed & are unremarkable except as noted in HPI and below Exam Narrative: Gen - Eldery, ill appearing male in no acute respiratory distress who is nontoxic-appearing lying semi recumbent in bed HEENT - normocephalic. Atraumatic. Pupils equal round and reactive. Extraocular motions intact. Sclera clear and anicteric. Nares patent. Oropharynx was clear. No oral lesions. Moist mucous membranes. Tongue was midline. Neck - neck was supple. No dominant adenopathy, thyromegaly or masses. 2+ carotid upstrokes without bruits. Chest - lungs are clear to auscultation bilaterally. No wheezes or crackles. CV - tachycardia S1-S2. No murmurs gallops or rubs. Abd - abdomen was soft, slightly distended, diffusely tender. Positive bowel sounds. No organomegaly or masses. Ext - no clubbing, cyanosis or edema. 2+ DP pulses bilaterally. Neuro - patient is alert and oriented x4. Psych - normal mood and affect. Patient is pleasant and cooperative. Skin - warm and dry. No rashes noted. Objective Data Vital Signs Vital Signs: Vital Signs - 24 hr 07/16/24 11:46 07/16/24 12:00 07/16/24 14:00 Temperature 97.8 F Pulse Rate 60 69 60 Respiratory Rate 18 Blood Pressure 181/84 H Pulse Oximetry 98 07/16/24 15:30 07/16/24 16:00 07/16/24 18:00 Temperature 98.1 F Pulse Rate 60 58 L 60 Respiratory Rate 18 Blood Pressure 179/96 H Pulse Oximetry 98 07/16/24 20:00 07/16/24 20:00 07/16/24 20:00 Temperature 98.0 F Pulse Rate 61 61 60 Respiratory Rate 18 Blood Pressure 184/88 H Pulse Oximetry 98 07/16/24 20:48 07/16/24 20:49 07/16/24 23:43 Temperature 98.0 F Pulse Rate 71 71 58 L Respiratory Rate 18 Blood Pressure 178/72 H Pulse Oximetry 97 07/17/24 00:00 07/17/24 02:00 07/17/24 04:00 Temperature 97.9 F Pulse Rate 61 62 67 Respiratory Rate 18 Blood Pressure 187/97 H Pulse Oximetry 96 07/17/24 04:00 07/17/24 06:00 07/17/24 06:57 Temperature Pulse Rate 63 65 Respiratory Rate Blood Pressure 179/84 H Pulse Oximetry 07/17/24 07:36 07/17/24 09:00 Temperature 98.2 F Pulse Rate 68 72 Respiratory Rate 16 Blood Pressure 156/75 H Pulse Oximetry 98 Intake/Output Intake/Output: Intake & Output 07/14/24 07/15/24 07/16/24 07/17/24 23:59 23:59 23:59 23:59 Intake Total 2972.9 3716.7 1640 420 Output Total 600 900 850 900 Balance 2372.9 2816.7 790 -480 Meds/Results Medications: Active Medications Generic Name Dose Route Start Last Admin Trade Name Freq PRN Reason Stop Dose Admin Acetaminophen 650 mg 07/16/24 12:49 Acetaminophen 325 Mg Tablet PO Q6H PRN Mild Pain (1-3) or Fever Aspirin 325 mg 07/17/24 09:00 07/17/24 08:59 Aspirin 325 Mg Enteric Tablet PO 325 mg QAM VANESSA Administration Dextrose 12.5 gm 07/13/24 04:03 Dextrose 50% 25 Gm/50 Ml Syringe IV PUSH PRN PRN Hypoglycemia Protocol Glucagon 1 mg 07/13/24 04:03 Glucagon For Inj 1 Mg Vial IM PRN PRN Hypoglycemia Protocol Glucose 15 gm 07/13/24 04:03 Glucose Oral Gel 15 Gm Of Glucse In 37.5 Gm Tube PO PRN PRN Hypoglycemia Protocol Hydralazine HCl 10 mg 07/17/24 06:06 07/17/24 06:17 Hydralazine Hcl 20 Mg/Ml Vial IV PUSH 10 mg Q4HR PRN Administration Blood Pressure - High Dextrose 1,000 mls @ 100 mls/hr 07/13/24 04:03 Dextrose 5% 1,000 Ml IVPB PRN PRN Hypoglycemia Protocol Losartan Potassium 50 mg 07/16/24 12:30 07/17/24 09:00 Losartan Potassium 50 Mg Tablet PO 50 mg DAILY VANESSA Administration Metoprolol Tartrate 5 mg 07/13/24 12:06 07/16/24 20:49 Metoprolol Tartrate Inj 5 Mg/5 Ml Vial IV PUSH 5 mg Q6HR PRN Administration Tachycardia Morphine Sulfate 4 mg 07/13/24 04:03 Morphine Sulfate (*Crx) 4 Mg/Ml Inj IV PUSH Q2H PRN Pain Rated 7-10 Ondansetron HCl 4 mg 07/13/24 04:03 Ondansetron Inj 4 Mg/2 Ml Vial IV PUSH Q4H PRN Nausea Perflutren Lipid Microsphere 0 ml 07/14/24 13:40 Perflutren Lipid Microspheres 1.5 Ml Vial Diluted To 10 Ml Total Volume IV PUSH 07/17/24 13:40 ONCE PRN adequate visualization Protocol Sotalol HCl 80 mg 07/15/24 09:00 07/17/24 09:00 Sotalol Hcl 80 Mg Tablet PO 80 mg Q12HR VANESSA Administration Radiology Results: ITS Impressions Chest X-Ray 07/12/24 23:24 IMPRESSION: No acute cardiopulmonary pathology. Abdomen/Pelvis CT 07/13/24 06:13 Impression: Small bowel obstruction, with transition point as detailed above. Probable underlying constipation. Abdomen X-Ray 07/13/24 11:13 Impression: NG tube side-port is just above the GE junction. Further advancement the stomach advised. Labs Labs: Laboratory Results - last 24 hr 07/17/24 03:47 Magnesium 1.9
--- NOTE | 2024-07-17 11:22 | PM.PNGS ---
Progress Note: A&P Assessment and Plan (1) Small bowel obstruction: Code(s): K56.609 - Unspecified intestinal obstruction, unspecified as to partial versus complete obstruction Status: Acute Assessment and Plan: Recurrent partial small-bowel obstruction has resolved. He has been advanced to a soft diet and tolerating this well. Okay to discharge from a surgical standpoint. No follow-up with surgery needed. We will sign off at this time. Call with any surgical concerns or questions. Plan I have discussed the patient's case and plan of care with Dr. Awan. Subjective Subjective Date/Time Seen: 07/17/24 11:22 Patient reports: no new complaints, tolerating a regular diet, flatus and bowel movement Interval history: Patient doing well and denies any abdominal pain, nausea, or vomiting. Tolerating his diet. Bowels have moved again today. Exam GI: Inspection: non-distended GI Palp: Yes Soft to palpation, No Tenderness to palpation present (GI), No Guarding due to palpation present (GI) and No Rebound tenderness present Auscultation: normal bowel sounds Objective Data Vital Signs Vital Signs: Vital Signs - 24 hr 07/16/24 11:46 07/16/24 12:00 07/16/24 14:00 Temperature 97.8 F Pulse Rate 60 69 60 Respiratory Rate 18 Blood Pressure 181/84 H Pulse Oximetry 98 07/16/24 15:30 07/16/24 16:00 07/16/24 18:00 Temperature 98.1 F Pulse Rate 60 58 L 60 Respiratory Rate 18 Blood Pressure 179/96 H Pulse Oximetry 98 07/16/24 20:00 07/16/24 20:00 07/16/24 20:00 Temperature 98.0 F Pulse Rate 61 61 60 Respiratory Rate 18 Blood Pressure 184/88 H Pulse Oximetry 98 07/16/24 20:48 07/16/24 20:49 07/16/24 23:43 Temperature 98.0 F Pulse Rate 71 71 58 L Respiratory Rate 18 Blood Pressure 178/72 H Pulse Oximetry 97 07/17/24 00:00 07/17/24 02:00 07/17/24 04:00 Temperature 97.9 F Pulse Rate 61 62 67 Respiratory Rate 18 Blood Pressure 187/97 H Pulse Oximetry 96 07/17/24 04:00 07/17/24 06:00 07/17/24 06:57 Temperature Pulse Rate 63 65 Respiratory Rate Blood Pressure 179/84 H Pulse Oximetry 07/17/24 07:36 07/17/24 09:00 Temperature 98.2 F Pulse Rate 68 72 Respiratory Rate 16 Blood Pressure 156/75 H Pulse Oximetry 98 Intake/Output Intake/Output: Intake & Output 07/14/24 07/15/24 07/16/24 07/17/24 23:59 23:59 23:59 23:59 Intake Total 2972.9 3716.7 1640 420 Output Total 600 900 850 900 Balance 2372.9 2816.7 790 -480 Meds/Results Medications: Active Medications Generic Name Dose Route Start Last Admin Trade Name Freq PRN Reason Stop Dose Admin Acetaminophen 650 mg 07/16/24 12:49 Acetaminophen 325 Mg Tablet PO Q6H PRN Mild Pain (1-3) or Fever Aspirin 325 mg 07/17/24 09:00 07/17/24 08:59 Aspirin 325 Mg Enteric Tablet PO 325 mg QAM VANESSA Administration Dextrose 12.5 gm 07/13/24 04:03 Dextrose 50% 25 Gm/50 Ml Syringe IV PUSH PRN PRN Hypoglycemia Protocol Glucagon 1 mg 07/13/24 04:03 Glucagon For Inj 1 Mg Vial IM PRN PRN Hypoglycemia Protocol Glucose 15 gm 07/13/24 04:03 Glucose Oral Gel 15 Gm Of Glucse In 37.5 Gm Tube PO PRN PRN Hypoglycemia Protocol Hydralazine HCl 10 mg 07/17/24 06:06 07/17/24 06:17 Hydralazine Hcl 20 Mg/Ml Vial IV PUSH 10 mg Q4HR PRN Administration Blood Pressure - High Dextrose 1,000 mls @ 100 mls/hr 07/13/24 04:03 Dextrose 5% 1,000 Ml IVPB PRN PRN Hypoglycemia Protocol Losartan Potassium 50 mg 07/16/24 12:30 07/17/24 09:00 Losartan Potassium 50 Mg Tablet PO 50 mg DAILY VANESSA Administration Metoprolol Tartrate 5 mg 07/13/24 12:06 07/16/24 20:49 Metoprolol Tartrate Inj 5 Mg/5 Ml Vial IV PUSH 5 mg Q6HR PRN Administration Tachycardia Morphine Sulfate 4 mg 07/13/24 04:03 Morphine Sulfate (*Crx) 4 Mg/Ml Inj IV PUSH Q2H PRN Pain Rated 7-10 Ondansetron HCl 4 mg 07/13/24 04:03 Ondansetron Inj 4 Mg/2 Ml Vial IV PUSH Q4H PRN Nausea Perflutren Lipid Microsphere 0 ml 07/14/24 13:40 Perflutren Lipid Microspheres 1.5 Ml Vial Diluted To 10 Ml Total Volume IV PUSH 07/17/24 13:40 ONCE PRN adequate visualization Protocol Sotalol HCl 80 mg 07/15/24 09:00 07/17/24 09:00 Sotalol Hcl 80 Mg Tablet PO 80 mg Q12HR VANESSA Administration Radiology Results: ITS Impressions Chest X-Ray 07/12/24 23:24 IMPRESSION: No acute cardiopulmonary pathology. Abdomen/Pelvis CT 07/13/24 06:13 Impression: Small bowel obstruction, with transition point as detailed above. Probable underlying constipation. Abdomen X-Ray 07/13/24 11:13 Impression: NG tube side-port is just above the GE junction. Further advancement the stomach advised. Labs Labs: Laboratory Results - last 24 hr 07/17/24 03:47 Magnesium 1.9
--- NOTE | 2024-07-17 14:54 | P.DS_ITS ---
DS: Admitting Diagnosis Discharge Date 07/17/24 Admitting Diagnosis Small-bowel obstruction DS: Discharge Diagnosis Discharge Diagnosis (1) Small bowel obstruction: Code(s): K56.609 - Unspecified intestinal obstruction, unspecified as to partial versus complete obstruction Status: Acute Assessment and Plan: - CT Scan: There are multiple dilated loops of small bowel. Transition point present in the midabdomen just right of midline with decompressed distal small bowel. Prominent stool throughout large bowel suggests underlying constipation. - Multiple previous SBOs and abdominal surgeries (2014x2, 2017, 2019) -full liquid diet - Per Gen Surg, monitor symptoms and vitals at this time, patient is stable for time being - Continue IV antibiotics for now and close observation with serial abdominal exams. (2) Atrial fibrillation: Code(s): I48.91 - Unspecified atrial fibrillation Status: Acute Assessment and Plan: Keep serum potassium >4 and keep magnesium >2 Metoprolol 25mg PO intial dose Cardiology consulted, 80mg Sotatol q12hs (Last dose A.M. 07/17) Hold anticoagulation Echocardiogram: EF 65-70%, mod LAE, mild JOHN, trace MR, mild TR. Cardiology consulted [id number] 3. On aspirin 325 mg daily. Start Sotalol to prevent recurrence of PAF on 07/15. Check EKG 1-2 hours post each dose as per protocol. After 5 doses (07/17) of Sotalol then he may be d/c home from cardiology standpoint. (3) Leukocytosis: Code(s): D72.829 - Elevated white blood cell count, unspecified Status: Resolved Assessment and Plan: * Likely secondary to SBO * In ED 19.9 * Patient is afebrile * Chest x-ray: No acute cardiopulmonary pathology * Urine showed 3-5 RBC, otherwise unremarkable * Viral panel negative for Flu A/B, RSV, COVID * Resolved (4) Essential hypertension: Code(s): I10 - Essential (primary) hypertension Status: Acute Assessment and Plan: Chronic, last BP reading 181/84 Restart Losartan 50mg DS: Summary Hospital Course Reason for hospitalization: Nausea and vomiting Hospital Course: 89-year-old male presents the hospital with nausea vomiting past medical history of source her laparotomy x4 for small bowel volvulus, recurrent small-bowel obstructions, hypertension hyperlipidemia and AFib. Patient states that his nausea vomiting and elbow pain is like previous small-bowel obstructions. CT shows small-bowel obstruction with transition point with probable underlying constipation. NG tube was attempted but unsuccessful. Patient refused to on Soarian. Neurosurgery was consulted with recommendations for NG tube placement under fluoro. Patient was placed NPO with bowel rest until return of function. The neck stated patient was not have any nausea or vomiting and surgery decided to hold off on NG tube at that point in time. On 07/15/2024 cardiology was consulted for atrial fibrillation with recommendations to check echo. Echo showed an ejection fraction of 65-70% and patient was started on sotalol for atrial fibrillation. Patient was monitored here and in [place] for 5 days with EKGs after dose of sotalol with no real on occasion in QTC. Patient's small bowel measures obstruction resolved on its own without needing NG tube. I do discharge patient was stable. He will call home on a GI soft diet. Status at Discharge Functional status at discharge: independent ambulation Time Spent with Patient Time attestation: Total time spent providing and/or coordinating discharge services: Time spent: Greater than 30 minutes Exam Narrative: General: well appearing, appears stated age. HEENT: normocephalic, atraumatic. Mucous membranes moist. EOMI, PERRLA, bilateral sclera anicteric, no conjunctival injection. Neck supple without JVD, lymphadenopathy, or bruit. Respiratory: clear to ascultation bilaterally. No rales/rhonic/wheezes. Cardiovascular: Regular rate and rhythm, normal S1-S2 upon ascultation. No murmurs, rubs, or clicks. PMI is nondisplaced, capillary refill less than 3 second. Abdomen: Soft, round, no pulsatile masses, nondistended and nontender. No rebound, no guarding. No CVA tenderness, no hepatosplenomegaly. Bowel sounds present to all four quadrants. No high pitch or tinkling sounds, resonant to percussion. Extremities: No cyanosis, clubbing, or edema present. Pulses are palpable 2/2. Active ROM to all four extremities. Neuro: Alert and orientated x 4. PERRLA. Cranial nerves 2-12 intact without focal deficit. Skin: Warm, dry, and intact, without rash, erythema, or lesion. Psych: pleasant, cooperative, normal speech, normal affect, no hallucinations, no dysarthia DS: Data Data Completed and Pending Labs on day of discharge: Labs from last 24 hours 07/17/24 03:47 Magnesium 1.9 Discharge Plan Discharge Consulting providers: Dmitry Barbosa; Adebayo Martinez; Henry Lyons; Sterling Awan; Matias Rodriguez; Jose Maria Cartwright; Tuan Manzo; Izzy Bradshaw; Blanco Eid; Sudheer Peña Discharging Clinician: Eneida Malloy Anticipated Discharge Date/Time: 07/17/24 14:55 Patient Disposition: Home, Self-Care Activity: may shower Diet: other - see discharge instructions Discharge Instructions: Discharge instructions: Take medications as prescribed New medications prescribed: Sotalol GI soft diet You are activity as tolerated Monitor blood pressures Avoid social areas, you wear a mask when in social settings Encouraged to continue with yearly vaccinations Return to the emergency department if he developed sudden shortness of breath, chest pain, nausea, vomiting, upset stomach or intractable diarrhea Return to the emergency department if you develop fever greater than 101.5 Follow-up with: Your primary care physician within 1-2 weeks for post hospitalization check up Thank you for choosing [facility] for your healthcare needs Patient Instructions: Bowel Obstruction (DC), GI (Gastrointestinal) Soft Diet (DC) Patient Language: [place] Stand Alone Forms: General Discharge Information Follow-up/Referrals: Dmitry Barbosa DO [Physician] - 2 Weeks Discharge Medications: New sotalol 80 mg Tablet 80 mg PO Q12HR 30 Days Qty: 60 0RF Continued aspirin 325 mg tablet 325 mg PO DAILY latanoprost 0.005 % drops 1 drp EACH EYE QHS losartan 50 mg tablet 50 mg PO DAILY Discontinued metoprolol succinate 25 mg tablet extended release 24 hr 25 mg PO DAILY Qty: 30 5RF Date of admission: 07/13/24 07:26 Primary Care Provider: Dada Pierce Admitting Provider: Eleanor Chauhan Attending physician on admission: Eneida Malloy Condition: Stable Quality VTE Prophylaxis VTE prophylaxis: mechanical ordered Hospitalist MIPS Heart Failure (Exclusion) Patient has history of Heart Transplant or Left Ventricular Assistive Device?: No IF YES, STOP HERE Heart Failure (Qualifier) Patient has current or prior documentation of LVEF less than or equal to 40%, or mod/servere depressed LVSF?: No IF NO, STOP HERE
== END 2024-07-17 15:46 | disposition home or self-care (01) | DRG 390 ==
LOC: ANHED 07-13 03:51 → ANH3MEDSUR 07-13 05:13 → ANH3MED 07-13 05:39 → ANHIMU 07-17 14:30 → ANH3MED 07-19 10:10 → ANHIMU 07-19 10:10
PROVIDERS: Emergency Medicine; Internal Medicine Cardiovascular Disease; Physician Assistant; Surgery; Admitting Provider Internal Medicine; Emergency Provider Physician Assistant; PCP Nurse Practitioner; Visit Provider Nurse Practitioner Gerontology
DX: K56.609 Unspecified intestinal obstruction, unspecified as to partial versus complete obstruction (principal); I48.0 Paroxysmal atrial fibrillation; I10 Essential (primary) hypertension; E78.5 Hyperlipidemia, unspecified; M19.071 Primary osteoarthritis, right ankle and foot; M88.9 Osteitis deformans of unspecified bone; R41.3 Other amnesia; F17.210 Nicotine dependence, cigarettes, uncomplicated; Z20.822 Contact with and (suspected) exposure to COVID-19; Z79.82 Long term (current) use of aspirin
CPT/HCPCS: 36415; 71045; 74177; 80053; 81001; 82948; 83605; 83690; 83735; 85025; 87637; 93005; 93306; 96361; 96365; 96375; 96376; 99285; A9270; G0378; J0360; J2004; J2250; J2270; J2405; J2543; J7030; Q9967